=== PATIENT | female | born 1935 | race Caucasian/White ===

== ENCOUNTER 2016-12-04 10:48 | Inpatient (IN) ==
--- NOTE | 2016-12-04 11:01 | Emergency Department Note ---
START Narrative - START START: Patient seen and examined the time of arrival by EMS. Patient is going to be evaluated by the afternoon physician. Was called to the bedside to evaluate her prior to the shift starting. Patient presents with A. fib RVR. Denies any symptoms at this time except that she has been feeling weak and has difficulty with walking around secondary to weakness. Patient denies chest pain shortness of breath headache vision changes nausea vomiting or diarrhea. Denies any other symptoms as far as trauma or injury. Patient had basic cardiac evaluation started this point EKG is reviewed from EMS showing tachycardic rhythm with undifferentiated etiology at this time. Patient is on Xarelto according to her records and does not require anticoagulation at this point. Aspirin will not be given. Patient is otherwise stable we will continue to monitor here. Treatment course to be completed by the daytime physician. IV access obtained and vital signs reviewed. Blood pressure was stable heart rate is still elevated at 120 bpm
[2016-12-04 11:40] LABS: Basophils % 0.3 %; Hematocrit 38.9 % (35.3-44.9); Hemoglobin 13.5 g/dL (11.5-15.4); Immature Granulocytes % 0.6 % (0-4); Immature Platelets 7.1 % (1.1-6.1); Lymphocytes # 0.3 K/mcL (0.6-4.6); Lymphocytes % 9.3 %; Mean Corpuscular HGB Conc 34.7 g/dL (31.6-35.5); Mean Corpuscular Hemoglobin 26.3 pg (28.0-33.3); Mean Corpuscular Volume 75.8 fL (83.0-100.0); Mean Platelet Volume 9.7 fL (9.4-12.4); Monocytes # 0.2 K/mcL (0.0-1.3); Monocytes % 5.4 %; Platelet Count 112 K/mcL (140-400); Red Blood Count 5.13 M/mcL (3.82-4.97); Red Cell Distribution Width 14.2 % (11.5-14.5); Segmented Neutrophils % 84.4 %
[2016-12-04 11:47] LABS: INR 1.2; Prothrombin Time 13.2 Seconds (9.4-12.1)
[2016-12-04 11:50] LABS: Activated Partial Thrombo Time 27.7 Seconds (26.0-36.0)
[2016-12-04 11:51] LABS: BUN/Creatinine Ratio 30 (6-26); Blood Urea Nitrogen 26 mg/dL (7-20); Calcium 9.3 mg/dL (8.6-10.8); Carbon Dioxide 26 mEq/L (19-29); Chloride 91 mEq/L (98-109); Glucose 115 mg/dL (70-99); Magnesium 1.9 mg/dL (1.6-2.6); Osmolality,Calculated 274 (280-300); Potassium 3.4 mEq/L (3.5-4.5); Sodium 129 mEq/L (136-145); eGFR For African Americans > 60 (> 60); eGFR For Non-African Americans > 60 (> 60)
[2016-12-04 12:14] LABS: Thyroid Stimulating Hormone 2.424 mcIU/mL (0.350-4.840)
--- NOTE | 2016-12-04 13:02 | Emergency Department Note ---
Disposition Clinical Impression: Atrial fibrillation with RVR Disposition: Admitted As Inpatient Condition: Fair General Adult HPI - General Chief complaint: ED Dizziness Stated complaint: weakness and dizziness Time Seen by Provider: 12/04/16 10:54 Source: patient, EMS Limitations: no limitations Nursing Notes Reviewed: Yes Vital Signs Reviewed: Yes - History of Present Illness HPI Narrative: Patient presents from the primary care office and she went in for a routine visit and was found to have atrial fibrillation with a rapid ventricular response and came here per paramedics. I did review the physician surgeon rhythm strips showing a rate region 145 bpm. Patient currently said she does have palpitations intermittently. Last 2 or 3 days but denies any current lightheadedness. No chest pain or tightness or discomfort or pressure. No pain or swelling of the lower extremities. The patient tells me she does not have a history of atrial fibrillation. No medication specifically used. Social history: No smoking or alcohol Pain Scale: 0 - Related Data Home Medications Medication Instructions Recorded Confirmed Albuterol Sulfate [Albuterol 2 puff IH Q4HR 01/22/15 12/04/16 Inhaler] Aspirin Enteric Coated [Aspirin EC] 81 mg PO DAILY 01/22/15 12/04/16 Chlorthalidone 25 mg PO QAM 01/22/15 12/04/16 Lisinopril [Zestril] 2.5 mg PO BID 01/22/15 12/04/16 Metformin [Glucophage] 500 mg PO HS 01/22/15 12/04/16 Ranitidine HCl [Zantac] 300 mg PO DAILY 01/22/15 12/04/16 Simvastatin [Zocor] 20 mg PO QPM 01/22/15 12/04/16 Cholecalciferol (Vitamin D3) 10,000 unit PO 2XW 07/26/15 12/04/16 [Vitamin D3] Cyclosporine [Restasis] 1 drop OP DAILY 07/26/15 12/04/16 Ibuprofen [Motrin] 400 mg PO TID PRN 07/26/15 12/04/16 Propylene Glycol/Peg 400 [Systane 1 drop OP AD 07/26/15 12/04/16 0.3-0.4% Eye Drops] rOPINIRole [Requip] 1 mg PO HS 07/26/15 12/04/16 Umeclidinium Brm/Vilanterol Tr 1 puff IH BID 12/04/16 12/04/16 [Anoro Ellipta 62.5-25 Mcg INH] Previous Rx's Medication Instructions Recorded Diltiazem CD (24hr) [Cardizem CD] 120 mg PO DAILY #30 cap.er.24h 01/25/15 Furosemide [Lasix] 20 mg PO BID #60 tablet 07/28/15 Acetaminophen [Tylenol] 650 mg PO Q6HR PRN #0 tablet 02/06/16 Allergies Allergy/AdvReac Type Severity Reaction Status Date / Time No Known Allergies Allergy Verified 01/22/15 12:56 Review of Systems: Constitutional: No fever Vision: No blurred vision ENT: No rhinorrhea Respiratory: No cough Allergic: No allergies : No blood in urine GI: No blood in stool Hematologic: No bruising Dermatologic: No skin rash Musculoskeletal: No pain in the extremities Neuro: No numbness of the extremities Past Medical History - Past Medical History Medical history: Reports: asthma, atrial fibrillation, CHF, CVA, diabetes, hypertension, other Surgical history: Reports: hysterectomy, orthopedic, other, other Psychiatric history: Reports: no psych history - Social History Smoking Status: Current every day smoker Smokeless Tobacco Status: No Alcohol use: Reports: occasionally Drug use: Reports: none Physical Exam CONSTITUTIONAL: Well-appearing; well-nourished; A&O X 3, in no apparent distress HEAD: Normocephalic; atraumatic EYES: PERRL, no scleral icterus NOSE: The nose is normal in appearance without rhinorrhea NECK: No JVD or distended neck veins RESP: Normal chest excursion with respiration; breath sounds clear and equal bilaterally; no wheezes, rhonchi, or rales CARD: Regular rhythm, without murmurs, rub or gallop ABD: Non-distended; non-tender, soft, without rigidity, rebound or guarding,no pulsatile mass CHEST: No pain with palpation SKIN: Normal for age and race; warm and dry without diaphoresis ; no apparent lesions EXTREMITIES: Pulses are 2 plus and equal times 4 extremities, no peripheral edema or calf muscle pain - General Limitations: no limitations General appearance: alert, in no apparent distress Course Vital Signs Temperature 98.3 F 12/04/16 10:50 Pulse Rate 125 12/04/16 10:50 Respiratory Rate 18 12/04/16 10:50 Blood Pressure 113/80 12/04/16 10:50 O2 Sat by Pulse Oximetry 97 12/04/16 10:50 Temperature 98.3 F 12/04/16 10:50 Pulse Rate 101 12/04/16 11:34 Respiratory Rate 18 12/04/16 11:34 Blood Pressure 117/67 12/04/16 11:34 O2 Sat by Pulse Oximetry 97 12/04/16 11:34 Oxygen Delivery Oxygen Delivery Room Air Medical Decision Making - MDM Narrative Medical decision making narrative: no patient did receive Cardizem 20 mg bolus as well as Cardizem IV drip at 10 mg per hour and did recheck on the patient. Heart rate is significantly improved. Initial EKG does show atrial fibrillation with rapid ventricular response with nonspecific ST changes. I did review the patient's labs. Chest x -ray does shows some mild vascular congestion but no signs of pneumothorax or mediastinal widening. The patient will be admitted to the hospital I did discuss this further with her. I did speak with Dr. Kapadia who is the hospitalist who accepted the patient for admission. I did speak with the patient's son and his girlfriend and they are comfortable with the admission decision. 1302 I did just recheck on the pt and explained her results and she is comfortable w the admission plan 1314 - Medical Records Medical records reviewed: Yes I reviewed the patient's medical records. - Lab Data Lab results reviewed: Yes I reviewed the patient's lab results. Result diagrams: 12/04/16 11:24 12/04/16 11:24 Lab Results 12/04/16 12/04/16 12/04/16 Range/Units 11:24 11:24 11:24 WBC 3.5 L (4.3-11.1) K/mcL RBC 5.13 H (3.82-4.97) M/mcL Hgb 13.5 (11.5-15.4) g/dL Hct 38.9 (35.3-44.9) % MCV 75.8 L (83.0-100.0) fL MCH 26.3 L (28.0-33.3) pg MCHC 34.7 (31.6-35.5) g/dL RDW 14.2 (11.5-14.5) % Plt Count 112 L (140-400) K/mcL MPV 9.7 (9.4-12.4) fL Immature Gran % 0.6 (0-4) % Seg Neutrophils % 84.4 % Lymphocytes % 9.3 % Monocytes % 5.4 % Eosinophils % 0.0 % Basophils % 0.3 % Neutrophils # 3.0 (1.6-8.9) K/mcL Lymphocytes # 0.3 L (0.6-4.6) K/mcL Monocytes # 0.2 (0.0-1.3) K/mcL Eosinophils # 0.0 (0.0-0.6) K/mcL Basophils # 0.0 (0.0-0.2) K/mcL Immature Plt Fraction 7.1 H (1.1-6.1) % PT 13.2 H (9.4-12.1) Seconds INR 1.2 APTT 27.7 (26.0-36.0) Seconds Sodium 129 L (136-145) mEq/L Potassium 3.4 L (3.5-4.5) mEq/L Chloride 91 L (98-109) mEq/L Carbon Dioxide 26 (19-29) mEq/L BUN 26 H (7-20) mg/dL Creatinine 0.86 (0.57-1.11) mg/dL Est GFR ( Amer) > 60 (> 60) Est GFR (Non-Af Amer) > 60 (> 60) BUN/Creatinine Ratio 30 H (6-26) Glucose 115 H (70-99) mg/dL Calculated Osmolality 274 L (280-300) Calcium 9.3 (8.6-10.8) mg/dL Magnesium 1.9 (1.6-2.6) mg/dL Troponin I (0-0.03) ng/mL TSH 2.424 (0.350-4.840) mcIU/mL 12/04/16 Range/Units 11:24 WBC (4.3-11.1) K/mcL RBC (3.82-4.97) M/mcL Hgb (11.5-15.4) g/dL Hct (35.3-44.9) % MCV (83.0-100.0) fL MCH (28.0-33.3) pg MCHC (31.6-35.5) g/dL RDW (11.5-14.5) % Plt Count (140-400) K/mcL MPV (9.4-12.4) fL Immature Gran % (0-4) % Seg Neutrophils % % Lymphocytes % % Monocytes % % Eosinophils % % Basophils % % Neutrophils # (1.6-8.9) K/mcL Lymphocytes # (0.6-4.6) K/mcL Monocytes # (0.0-1.3) K/mcL Eosinophils # (0.0-0.6) K/mcL Basophils # (0.0-0.2) K/mcL Immature Plt Fraction (1.1-6.1) % PT (9.4-12.1) Seconds INR APTT (26.0-36.0) Seconds Sodium (136-145) mEq/L Potassium (3.5-4.5) mEq/L Chloride (98-109) mEq/L Carbon Dioxide (19-29) mEq/L BUN (7-20) mg/dL Creatinine (0.57-1.11) mg/dL Est GFR ( Amer) (> 60) Est GFR (Non-Af Amer) (> 60) BUN/Creatinine Ratio (6-26) Glucose (70-99) mg/dL Calculated Osmolality (280-300) Calcium (8.6-10.8) mg/dL Magnesium (1.6-2.6) mg/dL Troponin I 0.01 (0-0.03) ng/mL TSH (0.350-4.840) mcIU/mL - Radiology Data Radiology results reviewed: Yes I reviewed the patient's radiology results. Chest X-Ray 12/04/16 10:54 IMPRESSION: 1. Mild pulmonary vascular congestion. 2. Minimal atelectasis noted in the left lung base. D/ / Dre Pollard MD / Dre Pollard MD Interpreting Provider: Dre Pollard MD Critical Care Time Critical Care Time: Yes Total Critical Care Time: 30 Attestation: Patient did present with significant arrhythmia with new onset atrial fibrillation with rapid ventricular response and received IV bolus as well as IV drip of Cardizem medication to manage the arrhythmia and recheck shows the patient's heart rate is improved. 1303
--- NOTE | 2016-12-04 13:22 | Electrocardiograph Report ---
[place] [id number] Test Date: 2016-12-04 Pat Name: Vale Whitman Department: 102 Room: [facility] Gender: F Galley Stripper: Saloni : 1935 Requested By: Jung Borges Order Number: [id number] Reading MD: Cnoor Nguyen MD Measurements Intervals Kite Rate: 127 P: MO: 0 QRS: 32 QRSD: 86 T: 42 QT: 293 QTc: 368 Interpretive Statements ATRIAL FIBRILLATION WITH RAPID VENTRICULAR RESPONSE WITH ABERRANT CONDUCTION OR VENTRICULAR PREMATURE COMPLEXES Electronically Signed On 12-04-2016 13:20:22 EDT by Conor Nguyen MD
[2016-12-04] MEDS ORDERED: *HR* Morphine 2 MG/ML SYRINGE IVP PRN (14:22)
[2016-12-04] MEDS ORDERED: Ondansetron 4 MG/2 ML VIAL IVP PRN (14:22)
[2016-12-04] MEDS ORDERED: Naloxone 0.4 MG/ML INJ IVP PRN (14:22)
[2016-12-04] MEDS ORDERED: CYCLOSPORINE OP SCH (14:45)
[2016-12-04] MEDS ORDERED: Artificial Tears SOLN 15 ML BOTTLE OP PRN (14:45)
--- NOTE | 2016-12-04 16:21 | Internal Med History&Physical ---
Date of Encounter: 12/04/16 Time of Encounter: 15:45 Assessment and Plan (1) Atrial fibrillation with rapid ventricular response Current visit: No Status: Acute Chronic atrial fibrillation - now with rapid ventricular response IV Cardizem drip to be titrated Continue home medication by mouth Cardizem, restart beta joseph Patient has been on Xarelto, uunclear if this is been discontinue Restart anticoagulation once family brings patient's medical list Continue aspirin and statin and Lasix EKG - afib with RVR Chest x-ray - pulmonary edema Troponin - 0.01, will trend Labs in a.m. (2) Diastolic heart failure Current visit: No Status: Chronic mild Acute on chronic diastolic CHF exacerbation with LVEF 60-65% Continue Lasix, strict I's and O's Fluid restriction, daily weight Continue home meds Echocardiogram pending Qualifiers: Heart failure chronicity: acute on chronic Qualified Code(s): I50.33 - Acute on chronic diastolic (congestive) heart failure (3) Type 2 diabetes mellitus Current visit: No Status: Chronic Type 2 diabetes, [id number], hyperglycemia Insulin sliding scale, glucose checks. Qualifiers: Diabetes mellitus complication status: without complication Diabetes mellitus civil preparedness officer insulin use: without civil preparedness officer use Qualified Code(s): E11.9 - Type 2 diabetes mellitus without complications (4) Hypertension Current visit: No Status: Chronic Essential hypertension, controlled, continue home meds, monitor Qualifiers: Hypertension type: essential hypertension Qualified Code(s): I10 - Essential (primary) hypertension (5) DVT prophylaxis Current visit: Yes Status: Acute Internal Medicine - H&P: HPI Chief complaint: Generalized weakness and tachycardia Admitted From: Emergency Dept History of present illness: Ms. Whitman is a 81 year old female with past medical history of asthma, atrial fibrillation, CHF, diabetes, CVA, hypertension and hyperlipidemia. She presents to the ED for generalized weakness and tachycardia. She presents from her primary care doctor's office. She is following up for routine visit. She was found to be in atrial fibrillation with RVR. Initial weight was found to be around 145 beats per minutes. Patient states she initially had generalized weakness and some lightheadedness and some palpitations, but this seems to have now improved. Denies chest pain and denies shortness of breath. Denies abdominal pain and denies vomiting or diarrhea. Initial evaluation revealed pulmonary edema, A. fib with RVR and mild hypokalemia. Patient has been admitted in the past for CHF exacerbation and A. fib with RVR. On examination patient is awake and alert. Not in any distress. Able to provide history. Son is at bedside and he also provides history. Patient is being admitted for A. fib with RVR. She is on IV Cardizem at this time. Patient has been on Xarelto, but it is unclear if she is still taking it or not. If patient does not have any history of bleeding complications then anticoagulation will be restarted. Patient and family members have been explained about her condition and plan of care. Understood and agreed. No unanswered questions. CODE STATUS full code. Past Med Surg Social Fam HX - Past Medical History Medical history: asthma, atrial fibrillation, CHF, CVA, diabetes, hypertension, other Psychiatric history: no psych history - Past Surgical History Surgical History: hysterectomy, orthopedic, other, other - Social History Smoking Status: Current every day smoker Smokeless Tobacco Status: No Alcohol use: occasionally Drug use: none - Family History Grandmother Family Member Ethnicity: Non- Living Status: Hx Family Cardiac Disorders: Yes Hx Family Respiratory Disorders: No Hx Family Cancer: Yes Hx Family GI Disorders: No Hx Family Endocrine Disorder: Yes Hx Family Neuromuscular Disorders: No Hx Family Neurologic Disorders: No Hx Family HEENT Disorders: No Hx Family Autoimmune Disorders: No Internal Medicine - H&P: Meds Albuterol Sulfate [Albuterol Inhaler] 2 puff IH Q4HR 01/22/15 [History] Aspirin Enteric Coated [Aspirin EC] 81 mg PO DAILY 01/22/15 [History] Chlorthalidone 25 mg PO QAM 01/22/15 [History] Lisinopril [Zestril] 2.5 mg PO BID 01/22/15 [History] Metformin [Glucophage] 500 mg PO HS 01/22/15 [History] Ranitidine HCl [Zantac] 300 mg PO DAILY 01/22/15 [History] Simvastatin [Zocor] 20 mg PO QPM 01/22/15 [History] Diltiazem CD (24hr) [Cardizem CD] 120 mg PO DAILY #30 cap.er.24h 01/25/15 [Rx] Cholecalciferol (Vitamin D3) [Vitamin D3] 10,000 unit PO 2XW 07/26/15 [History] Cyclosporine [Restasis] 1 drop OP DAILY 07/26/15 [History] Ibuprofen [Motrin] 400 mg PO TID PRN 07/26/15 [History] Propylene Glycol/Peg 400 [Systane 0.3-0.4% Eye Drops] 1 drop OP AD 07/26/15 [ History] rOPINIRole [Requip] 1 mg PO HS 07/26/15 [History] Furosemide [Lasix] 20 mg PO BID #60 tablet 07/28/15 [Rx] Acetaminophen [Tylenol] 650 mg PO Q6HR PRN #0 tablet 02/06/16 [Rx] Umeclidinium Brm/Vilanterol Tr [Anoro Ellipta 62.5-25 Mcg INH] 1 puff IH BID 11/15 [History] Allergies No Known Allergies Allergy (Verified 01/22/15 12:56) All Systems PM: A 10-system review of systems was performed and is negative for pertinent findings except as documented above in the HPI. - Constitutional Constitutional: fatigue, weakness, no fever(s) - EENT Eyes: no blurry vision - Cardiovascular Cardiovascular ROS IM: lightheadedness, no chest pain, no dyspnea, no dyspnea on exertion, no orthopnea, no syncope - Respiratory Respiratory: no cough, no dyspnea, no hemoptysis, no dyspnea on exertion, no wheezing, no chest congestion - Gastrointestinal Gastrointestinal: no abdominal pain, no cramping, no diarrhea, no nausea, no vomiting - Genitourinary Genitourinary: no dysuria - Musculoskeletal Musculoskeletal ROS IM: no arthralgias - Neurological Neurological ROS: no abnormal gait, no abnormal speech, no dizziness, no numbness, no tingling - Constitutional Vitals: Temp Pulse Resp BP Pulse Ox 100 F H 105 16 122/71 93 12/04/16 15:24 12/04/16 15:24 12/04/16 15:46 12/04/16 15:24 12/04/16 15:46 General appearance: Present: A&O X 3, pleasant, no acute distress, answers questions appropriately - Head Head exam: Present: atraumatic - ENT ENT exam: Present: mucous membranes moist - Neck Neck exam general surgery: Present: supple - Respiratory Respiratory exam: Present: rales (Mild bilateral). Absent: rhonchi, stridor, tachypnea - Cardiovascular Cardiovascular exam: Present: irregular rhythm, +S1, +S2, systolic murmur, tachycardia - GI/Abdominal GI/Abdominal exam: Present: soft. Absent: distended, firm, guarding, rigid, tenderness - Extremities Exam Extremities exam: Present: radial pulses palpable and symetrical. Absent: cyanotic, pedal edema, tenderness - Neurological Exam Neurological exam: Present: alert, oriented X3, no focal deficits Internal Med - H&P Results - Labs CBC & Chem 7: 12/04/16 11:24 12/04/16 11:24
[2016-12-04] MEDS ORDERED: D5% in Water 1,000 ML IVC PRN (16:24)
[2016-12-04] MEDS ORDERED: Dextrose Gel 15 GM PO PRN ×2 (16:24)
[2016-12-04] MEDS ORDERED: *HR* Dextrose 50 % in Water (Syg) 50 ML SYRINGE IVP PRN (16:24)
[2016-12-04] MEDS: Aspirin Enteric Coated 81 MG Tablet PO SCH (17:14)
[2016-12-04] MEDS: Furosemide 20 MG TABLET PO SCH (17:14)
[2016-12-04] MEDS: Famotidine 20 MG TABLET PO SCH (17:15)
[2016-12-04] MEDS: Insulin LISPRO 300 UNITS/3 ML VIAL SQ SCH (17:18)
[2016-12-04] MEDS: rOPINIRole 1 MG TABLET PO SCH (20:51)
[2016-12-04] MEDS: *HR* Heparin 5,000 UNIT/ML VIAL SQ SCH (20:53)
[2016-12-04] MEDS ORDERED: Umeclidinium Brm/Vilanterol Tr [Anoro Ellipta 62.5-2 IH SCH (21:00)
[2016-12-04 21:41] LABS: Bilirubin,Urine Negative (Negative); Blood,Urine Negative (Negative); Clarity,Urine Cloudy (Clear); Color,Urine Yellow (Yellow); Glucose,Urine (UA) Normal (Normal); Ketones,Urine Negative (Negative); Leukocyte Esterase,Urine Small (Negative); Nitrite,Urine Positive (Negative); Protein,Urine Negative (Neg-Trace); Specific Gravity,Urine 1.016 (1.010-1.025); Urobilinogen,Urine Normal (Normal)
[2016-12-04 21:44] LABS: Bacteria,Urine Many per hpf (None-Few); Hyaline Casts,Urine None Seen per lpf (None-Few); Squamous Epithelial Cell,Urine Many per lpf (None-Few)
[2016-12-04] MEDS ORDERED: 0.9 % Sodium Chloride 500 ML ONE (23:10)
[2016-12-05] MEDS: Insulin LISPRO 300 UNITS/3 ML VIAL SQ SCH ×5 (05:38→20:29)
[2016-12-05] MEDS: *HR* Heparin 5,000 UNIT/ML VIAL SQ SCH ×3 (05:48→20:44)
[2016-12-05 05:52] LABS: INR 1.3; Prothrombin Time 14.3 Seconds (9.4-12.1)
[2016-12-05 06:01] LABS: Albumin 3.4 g/dL (3.5-5.0); Albumin/Globulin Ratio 1.4 (1.1-2.2); Bilirubin,Total 1.2 mg/dL (0.2-1.2); Calcium 8.6 mg/dL (8.6-10.8); Globulin 2.5 g/dL (2.4-3.5); Potassium 3.2 mEq/L (3.5-4.5); Total Protein 5.9 g/dL (6.0-8.3)
[2016-12-05 06:11] LABS: Basophils % 0.3 %; Hematocrit 36.6 % (35.3-44.9); Hemoglobin 12.5 g/dL (11.5-15.4); Lymphocytes # 0.5 K/mcL (0.6-4.6); Lymphocytes % 15.5 %; Mean Corpuscular HGB Conc 34.2 g/dL (31.6-35.5); Mean Corpuscular Hemoglobin 25.9 pg (28.0-33.3); Mean Corpuscular Volume 75.9 fL (83.0-100.0); Mean Platelet Volume 10.9 fL (9.4-12.4); Monocytes # 0.2 K/mcL (0.0-1.3); Monocytes % 7.2 %; Neutrophils # 2.2 K/mcL (1.6-8.9); Platelet Count 104 K/mcL (140-400); Red Blood Count 4.82 M/mcL (3.82-4.97); Red Cell Distribution Width 14.5 % (11.5-14.5)
[2016-12-05] MEDS ORDERED: Acetaminophen 325 MG TABLET PO PRN ×2 (08:50→20:18)
[2016-12-05] MEDS ORDERED: Budesonide/Formoterol 160/4.5 MDI IH SCH (10:00)
[2016-12-05] MEDS: Budesonide/Formoterol 160/4.5 MDI IH SCH ×2 (10:12→20:15)
[2016-12-05] MEDS: Diltiazem CD (24hr) 120 MG CAPSULE PO SCH (11:20)
[2016-12-05] MEDS: Famotidine 20 MG TABLET PO SCH ×2 (11:21→16:56)
[2016-12-05] MEDS: Aspirin Enteric Coated 81 MG Tablet PO SCH (11:21)
[2016-12-05] MEDS: Furosemide 20 MG TABLET PO SCH (11:21)
[2016-12-05] MEDS: Cholecalciferol (D-3) 1,000 UNIT TABLET PO SCH (11:21)
[2016-12-05] MEDS ORDERED: 0.9 % Sodium Chloride 250 ML IVC ONE (14:00)
--- NOTE | 2016-12-05 15:37 | Internal Med Progress Note ---
<Jose Hubbard - Last Filed: 12/05/16 15:56> Date of Encounter: 12/05/16 Time of Encounter: 15:34 - Assessment and plan (1) Atrial fibrillation with rapid ventricular response Current Visit: No Status: Acute Assessment and plan: - Emergency department EKG revealed atrial fibrillation with rapid ventricular response, rate 145 - [place] not on anticoagulation due to falls. She does take aspirin 81 mg daily - Patient was started on Cardizem drip at 10 mg, has been titrated down to 2.5 mg - Heart rate has remained stable in the 90s -Patient is also receiving by mouth diltiazem 120 mg daily, as well as her home dose of metoprolol tartarate 25 mg twice a day - Continue to monitor weight and adjust dosing as needed - She received echocardiogram this morning, results pending (2) Hypotension Current Visit: Yes Status: Acute Assessment and plan: Issues blood pressure upon admission was 88/54 - Likely due to dehydration versus polypharmacy - We are currently holding her lisinopril, Lasix, chlorthalidone - Patient received 1- 250 mL bolus of normal saline infused over 5 hours - Fluid restriction suspended or this evening, will continue tomorrow morning - Patient is asymptomatic. - We will continue to monitor Qualifiers: Hypotension type: unspecified hypotension type Qualified Code(s): I95.9 - Hypotension, unspecified (3) UTI (urinary tract infection) Current Visit: Yes Status: Acute Assessment and plan: - Patient's urinalysis in the emergency department was positive for nitrites, small leukocyte esterase, epithelial cells - Patient was placed on Rocephin 1 g IV daily - Patient does not complain of dysuria, frequency, urgency - We will continue to monitor Qualifiers: Urinary tract infection type: acute cystitis Hematuria presence: without hematuria Qualified Code(s): N30.00 - Acute cystitis without hematuria (4) Type 2 diabetes mellitus Current Visit: No Status: Chronic Assessment and plan: - Issues blood sugars well controlled at this time, most recently 140 - Will Continue a sliding insulin scale Qualifiers: Diabetes mellitus complication status: without complication Diabetes mellitus jail insulin use: without jail use Qualified Code(s): E11.9 - Type 2 diabetes mellitus without complications (5) Acute kidney injury Current Visit: Yes Status: Acute Assessment and plan: - Patient's BUN/creatinine was 34/1.63 - Likely result of dehydration - Patient's mild hyponatremia, hypokalemia, hypochloremia likely results of thiazide and loop diuretics. We have held her diuretics - We will give one bolus of 250 mL normal saline, suspend fluid restriction for this evening - Continue to monitor with a.m. labs (6) DVT prophylaxis Current Visit: Yes Status: Acute Assessment and plan: Patient is receiving heparin 5000 units subcutaneously - Time Spent With Patient 25 - 35 minutes - Subjective Interval history: Patient was seen and examined at bedside morning. Patient states that she is feeling well, however she is still feeling generalized weakness. Denies any symptoms of chest pain, shortness of breath, palpitations, fevers, chills, nausea, vomiting. - Constitutional Vitals: Temp Pulse Resp BP Pulse Ox 98.5 F 86 16 94/60 93 12/05/16 14:59 12/05/16 15:19 12/05/16 15:19 12/05/16 15:19 12/05/16 15:19 General appearance: Present: A&O X 3, pleasant, no acute distress, answers questions appropriately Exam: Gen.: Vitals noted. No acute distress. AAOx3 HEENT: PERRL/EOMI, oropharynx clear, Normocephalic, atraumatic. Dry mucous membranes Neck: Supple. No adenopathy. Cardiac: Irregularly irregular rhythm. Rate in 90s, no murmur, +S1/S2 Pulmonary: CTA bilaterally, no wheezes, rales or rhonchi, equal chest expansion Abdomen: soft, nontender, BS noted, no guarding Back: Nontender throughout. MSK: ROM intact, no joint swelling noted Extremities: Mild bruising over extremities diffusely. no BLE edema, nontender calf, no cyanosis or clubbing Neuro: A&Ox3, moves all extremities, no focal deficits Psych: Appropriate mood and behavior Internal Medicine: Result - Labs CBC & Chem 7: 12/05/16 05:21 12/05/16 05:21 Labs: Short CBC 12/05/16 Range/Units 05:21 WBC 2.9 L (4.3-11.1) K/mcL Hgb 12.5 (11.5-15.4) g/dL Hct 36.6 (35.3-44.9) % Plt Count 104 L (140-400) K/mcL Neutrophils # 2.2 (1.6-8.9) K/mcL BMP 12/05/16 05:21 Sodium 128 L Potassium 3.2 L Chloride 91 L Carbon Dioxide 26 BUN 34 H Creatinine 1.63 H D Glucose 140 H Calcium 8.6 Cardiac Enzymes 12/04/16 12/04/16 12/05/16 Range/Units 17:13 22:53 05:21 Troponin I 0.01 0.02 0.01 (0-0.03) ng/mL Liver Function 12/05/16 Range/Units 05:21 Total Bilirubin 1.2 (0.2-1.2) mg/dL AST 51 H (5-34) Units/L ALT 41 (0-55) Units/L Alkaline Phosphatase 55 (38-126) Units/L Albumin 3.4 L (3.5-5.0) g/dL Urine 12/04/16 Range/Units 21:30 Urine Color Yellow (Yellow) Urine Clarity Cloudy A (Clear) Urine pH 6.0 (5.0-8.0) pH Units Ur Specific [place] 1.016 (1.010-1.025) Urine Protein Negative (Neg-Trace) mg/dL Urine Glucose (UA) Normal (Normal) mg/dL - ABG Interpretation ABG results: PT/INR, D-dimer PT 14.3 Seconds (9.4-12.1) H 12/05/16 05:21 Consult Discharge Plan - Plan Referrals: Mili Rome, [employer] DESIGNER [Primary Care Provider] - <Gamal Brower - Last Filed: 12/05/16 17:23> Date of Encounter: 12/05/16 - Assessment and plan (1) Diastolic heart failure Current Visit: Yes Status: Chronic Assessment and plan: Diuresed some today. Qualifiers: Heart failure chronicity: acute on chronic Qualified Code(s): I50.33 - Acute on chronic diastolic (congestive) heart failure (2) Atrial fibrillation Current Visit: Yes Status: Acute Assessment and plan: Rate better controlled at this time. Qualifiers: Atrial fibrillation type: chronic Qualified Code(s): I48.2 - Chronic atrial fibrillation (3) Type 2 diabetes mellitus Current Visit: No Status: Chronic Qualifiers: Diabetes mellitus complication status: without complication Diabetes mellitus buttermaker continuous churn insulin use: without jail use Qualified Code(s): E11.9 - Type 2 diabetes mellitus without complications (4) Hypertension Current Visit: Yes Status: Chronic Qualifiers: Hypertension type: essential hypertension Qualified Code(s): I10 - Essential (primary) hypertension (5) UTI (urinary tract infection) Current Visit: Yes Status: Acute Qualifiers: Urinary tract infection type: acute cystitis Hematuria presence: without hematuria Qualified Code(s): N30.00 - Acute cystitis without hematuria (6) Microcytic anemia Current Visit: No Status: Chronic - Constitutional Vitals: Temp Pulse Resp BP Pulse Ox 98.5 F 86 16 94/60 93 12/05/16 14:59 12/05/16 15:19 12/05/16 15:19 12/05/16 15:19 12/05/16 15:19 Internal Medicine: Result - Labs CBC & Chem 7: 12/05/16 05:21 12/05/16 05:21 Labs: Short CBC 12/05/16 Range/Units 05:21 WBC 2.9 L (4.3-11.1) K/mcL Hgb 12.5 (11.5-15.4) g/dL Hct 36.6 (35.3-44.9) % Plt Count 104 L (140-400) K/mcL Neutrophils # 2.2 (1.6-8.9) K/mcL BMP 12/05/16 05:21 Sodium 128 L Potassium 3.2 L Chloride 91 L Carbon Dioxide 26 BUN 34 H Creatinine 1.63 H D Glucose 140 H Calcium 8.6 Cardiac Enzymes 12/04/16 12/04/16 12/05/16 Range/Units 17:13 22:53 05:21 Troponin I 0.01 0.02 0.01 (0-0.03) ng/mL Liver Function 12/05/16 Range/Units 05:21 Total Bilirubin 1.2 (0.2-1.2) mg/dL AST 51 H (5-34) Units/L ALT 41 (0-55) Units/L Alkaline Phosphatase 55 (38-126) Units/L Albumin 3.4 L (3.5-5.0) g/dL Urine 12/04/16 Range/Units 21:30 Urine Color Yellow (Yellow) Urine Clarity Cloudy A (Clear) Urine pH 6.0 (5.0-8.0) pH Units Ur Specific [place] 1.016 (1.010-1.025) Urine Protein Negative (Neg-Trace) mg/dL Urine Glucose (UA) Normal (Normal) mg/dL - ABG Interpretation ABG results: PT/INR, D-dimer PT 14.3 Seconds (9.4-12.1) H 12/05/16 05:21 - Attending Attestation I examined this patient and my medical decision-making was reviewed with the Resident Physician on 12/05/16. I agree with the documented findings, disposition and treatment plan as described except to the extent set forth below. Ms. Whitman is currently admitted for acute rapid atrial fibrillation and some CHF. She remains moderate to high risk due to potential for worsening cardiac and respiratory status. Ms. Whitman is feeling OK. She is getting her echo now. No pain. Heart rate better controlled now. No CP or SOB. Very fatigued. No fever or chills. Exam Alert. Comfortable Heart irreg - not tachy Lungs diminished but clear Edema present. I/P 1. Rapid a fib - better controlled at this time 2. Acute diastolic heart filure Further diagnoses and plan as above.
[2016-12-05] MEDS: Nystatin POWDER 30 GM BOTTLE TP SCH ×2 (16:56→20:45)
[2016-12-05] MEDS: rOPINIRole 1 MG TABLET PO SCH (20:44)
[2016-12-05] MEDS ORDERED: 0.9 % Sodium Chloride 500 ML IVC ONE (23:23)
[2016-12-05] MEDS ORDERED: 0.9 % Sodium Chloride 500 ML ONE (23:31)
[2016-12-06] MEDS ORDERED: 0.9 % Sodium Chloride 500 ML IVC ONE (00:14)
[2016-12-06] MEDS: *HR* Heparin 5,000 UNIT/ML VIAL SQ SCH ×3 (05:49→22:20)
[2016-12-06 06:54] LABS: Hemoglobin 12.4 g/dL (11.5-15.4); Mean Platelet Volume 11.5 fL (9.4-12.4); Red Cell Distribution Width 14.6 % (11.5-14.5)
[2016-12-06 06:56] LABS: Hematocrit 36.3 % (35.3-44.9); Immature Platelets 12.7 % (1.1-6.1); Mean Corpuscular HGB Conc 34.2 g/dL (31.6-35.5); Mean Corpuscular Hemoglobin 25.8 pg (28.0-33.3); Mean Corpuscular Volume 75.5 fL (83.0-100.0); Red Blood Count 4.81 M/mcL (3.82-4.97)
[2016-12-06 07:06] LABS: Calcium 8.2 mg/dL (8.6-10.8); Potassium 3.3 mEq/L (3.5-4.5)
[2016-12-06] MEDS: Budesonide/Formoterol 160/4.5 MDI IH SCH ×2 (09:06→19:58)
[2016-12-06] MEDS: Cholecalciferol (D-3) 1,000 UNIT TABLET PO SCH (09:13)
[2016-12-06] MEDS: Famotidine 20 MG TABLET PO SCH ×2 (09:13→15:59)
[2016-12-06] MEDS: Aspirin Enteric Coated 81 MG Tablet PO SCH (09:13)
[2016-12-06] MEDS: Diltiazem CD (24hr) 120 MG CAPSULE PO SCH (09:13)
[2016-12-06] MEDS: Nystatin POWDER 30 GM BOTTLE TP SCH ×2 (09:17→22:20)
[2016-12-06] MEDS: Insulin LISPRO 300 UNITS/3 ML VIAL SQ SCH ×4 (09:19→22:00)
[2016-12-06] MEDS ORDERED: 0.9 % Sodium Chloride 500 ML ONE (11:19)
[2016-12-06] MEDS ORDERED: 0.9 % Sodium Chloride 500 ML IVC SCH (11:30)
--- NOTE | 2016-12-06 15:51 | Internal Med Progress Note ---
<Brittney Guallpa - Last Filed: 12/06/16 16:17> Date of Encounter: 12/06/16 Time of Encounter: 10:15 - Assessment and plan (1) Atrial fibrillation with rapid ventricular response Current Visit: No Status: Acute Assessment and plan: - EKG on admission revealed atrial fibrillation with rapid ventricular response at rate of 145 - Currently rate-controlled with heart rate around 100s. - PO Cardizem and metoprolol were held this morning due to hypotension. - Not on anticoagulation at home except aspirin 81 mg due to fall risks. - Continue close monitoring with telemetry. (2) Hypotension Current Visit: Yes Status: Acute Assessment and plan: - BP as low as 86/55. - Asymptomatic. - Likely due to dehydration versus polypharmacy. - Will have ACTH challenge test tomorrow morning to rule out adrenal insufficiency. - Continue to hold lisinopril, Lasix, chlorthalidone - Will give one bolus of 500 mL NS at rate of 100 cc/hr. - Continue to monitor Qualifiers: Hypotension type: unspecified hypotension type Qualified Code(s): I95.9 - Hypotension, unspecified (3) Hyponatremia Current Visit: Yes Status: Acute Assessment and plan: - Hypotonic hyponatremia with Na 129 on admission, likely hypovolemic or euvolemic. - Na 128 today. - Differential includes SIADH, adrenal insufficiency, renal loss, CHF. - Will check urine Na and osm. - Fluid restriction of 1.5L. - Continue to monitor. (4) Acute kidney injury Current Visit: Yes Status: Acute Assessment and plan: - SCr as high as 1.63 on 12/05/16. - Likely secondary to dehydration - Cautious about IV fluid given patient's known history of diastolic dysfunction. - Will give one bolus of 500 mL NS at rate of 100 cc/hr. - Continue to monitor electrolytes and renal function. (5) UTI (urinary tract infection) Current Visit: Yes Status: Acute Assessment and plan: - UA positive for nitrites with small leukocyte esterase. - Urine culture preliminarily grew GNR. - Patient reports no urinary symptoms but will still treat given she did have fever and leukopenia on admission. - Continue IV Rocephin (since 12/05/16). Qualifiers: Urinary tract infection type: acute cystitis Hematuria presence: without hematuria Qualified Code(s): N30.00 - Acute cystitis without hematuria (6) Diastolic heart failure Current Visit: Yes Status: Chronic Assessment and plan: - Echo on 12/05/26 showed LVEF 60-65% and indeterminate diastolic function due to atrial fibrillation. - Prior echo in 2014 did show moderate LV diastolic dysfunction. - Strict I/O and daily weight. - Low salt diet with fluid restriction of 1.5L. Qualifiers: Heart failure chronicity: acute on chronic Qualified Code(s): I50.33 - Acute on chronic diastolic (congestive) heart failure (7) Type 2 diabetes mellitus Current Visit: No Status: Chronic Assessment and plan: - Blood sugars well controlled at this time. - Continue insulin sliding scale with routine monitoring of blood glucose. Qualifiers: Diabetes mellitus complication status: without complication Diabetes mellitus fpc insulin use: without fpc use Qualified Code(s): E11.9 - Type 2 diabetes mellitus without complications (8) DVT prophylaxis Current Visit: Yes Status: Acute Assessment and plan: - Continue SQ heparin. - Subjective Interval history: Patient was noted to have low blood pressure (80s//50s) throughout the night. Patient was seen and examined this morning. Patient has no complaint and denies fever, chills, shortness of breath, chest pain, palpitation, nausea, vomiting, diarrhea. - Constitutional Vitals: Temp Pulse Resp BP Pulse Ox 98.3 F 101 16 87/51 94 12/06/16 11:07 12/06/16 11:07 12/06/16 11:07 12/06/16 11:07 12/06/16 11:07 General appearance: Present: A&O X 3, pleasant, no acute distress, answers questions appropriately - Head Head exam: Present: atraumatic, normocephalic - Eye Eye exam: Present: EOMI, PERRL, conjuntiva pink, sclera anicteric Pupils: Present: PERRL - Neck Neck exam general surgery: Present: supple, trachea midline. Absent: lymphadenopathy - Respiratory Respiratory exam: Present: CTAB. Absent: accessory muscle use, rales, rhonchi, wheezes - Cardiovascular Cardiovascular exam: Present: irregular rhythm (at rate of 90s.), +S1, +S2. Absent: diastolic murmur, gallop, rubs, systolic murmur - GI/Abdominal GI/Abdominal exam: Present: normal bowel sounds, soft, no peritoneal signs. Absent: distended, tenderness - Extremities Exam Extremities exam: Present: warm, radial pulses palpable and symetrical. Absent : calf tenderness, cyanotic, pedal edema - Neurological Exam Neurological exam: Present: CN II-XII intact, oriented X3, no focal deficits. Absent: pronater drift, facial droop, speech deficit - Skin Skin exam: Present: dry, intact Internal Medicine: Result - Labs CBC & Chem 7: 12/06/16 06:28 12/06/16 06:28 Labs: Short CBC 12/06/16 Range/Units 06:28 WBC 3.8 L (4.3-11.1) K/mcL Hgb 12.4 (11.5-15.4) g/dL Hct 36.3 (35.3-44.9) % Plt Count 93 L (140-400) K/mcL BMP 12/06/16 06:28 Sodium 128 L Potassium 3.3 L Chloride 94 L Carbon Dioxide 25 BUN 50 H D Creatinine 1.58 H Glucose 127 H Calcium 8.2 L - ABG Interpretation ABG results: PT/INR, D-dimer PT 14.3 Seconds (9.4-12.1) H 12/05/16 05:21 Consult Discharge Plan - Plan Referrals: Mili Rome, RESIDENT CARE ASSISTANT [Primary Care Provider] - <Gamal Brower - Last Filed: 12/06/16 16:53> Date of Encounter: 12/06/16 - Assessment and plan (1) Hypotension Current Visit: Yes Status: Acute Qualifiers: Hypotension type: other hypotension type Qualified Code(s): I95.89 - Other hypotension (2) Atrial fibrillation Current Visit: Yes Status: Acute Qualifiers: Atrial fibrillation type: chronic Qualified Code(s): I48.2 - Chronic atrial fibrillation (3) Hyponatremia Current Visit: Yes Status: Acute (4) Diastolic heart failure Current Visit: Yes Status: Chronic Qualifiers: Heart failure chronicity: acute on chronic Qualified Code(s): I50.33 - Acute on chronic diastolic (congestive) heart failure (5) Type 2 diabetes mellitus Current Visit: No Status: Chronic Qualifiers: Diabetes mellitus complication status: without complication Diabetes mellitus manager drug insulin use: without manager drug use Qualified Code(s): E11.9 - Type 2 diabetes mellitus without complications (6) Hypertension Current Visit: Yes Status: Chronic Qualifiers: Hypertension type: essential hypertension Qualified Code(s): I10 - Essential (primary) hypertension (7) UTI (urinary tract infection) Current Visit: Yes Status: Acute Qualifiers: Urinary tract infection type: acute cystitis Hematuria presence: without hematuria Qualified Code(s): N30.00 - Acute cystitis without hematuria (8) Microcytic anemia Current Visit: No Status: Chronic (9) Acute kidney injury Current Visit: Yes Status: Acute - Constitutional Vitals: Temp Pulse Resp BP Pulse Ox 98.3 F 90 16 96/55 96 12/06/16 11:07 12/06/16 16:28 12/06/16 16:28 12/06/16 16:28 12/06/16 16:28 Internal Medicine: Result - Labs CBC & Chem 7: 12/06/16 06:28 12/06/16 06:28 Labs: Short CBC 12/06/16 Range/Units 06:28 WBC 3.8 L (4.3-11.1) K/mcL Hgb 12.4 (11.5-15.4) g/dL Hct 36.3 (35.3-44.9) % Plt Count 93 L (140-400) K/mcL BMP 12/06/16 06:28 Sodium 128 L Potassium 3.3 L Chloride 94 L Carbon Dioxide 25 BUN 50 H D Creatinine 1.58 H Glucose 127 H Calcium 8.2 L - ABG Interpretation ABG results: PT/INR, D-dimer PT 14.3 Seconds (9.4-12.1) H 12/05/16 05:21 - Attending Attestation I examined this patient and my medical decision-making was reviewed with the Resident Physician on 12/06/16. I agree with the documented findings, disposition and treatment plan as described except to the extent set forth below. Ms. Whitman is currently admitted for rapid a fib and hypotension. She remains moderate to high risk due to potential for worsening cardiac status. Ms. Whitman is up in chair. She feels somewhat better but BP is still low today. No tachycardia. No fever or chills. No GI symptoms. Exam Alert. Comfortable Heart irreg - not tachy Lungs clear Abd soft No edema I/P 1. Hypotension 2. Hyponatremia 3. A fib Further diagnoses and plan as above.
[2016-12-06] MEDS: rOPINIRole 1 MG TABLET PO SCH (22:20)
[2016-12-07] MEDS ORDERED: Cosyntropin 250 MCG/2 ML VIAL IVP ONE (06:30)
[2016-12-07] MEDS: *HR* Heparin 5,000 UNIT/ML VIAL SQ SCH ×3 (06:42→21:17)
[2016-12-07 07:10] LABS: BUN/Creatinine Ratio 40 (6-26); Blood Urea Nitrogen 40 mg/dL (7-20); Calcium 8.5 mg/dL (8.6-10.8); Carbon Dioxide 25 mEq/L (19-29); Chloride 97 mEq/L (98-109); Glucose 100 mg/dL (70-99); Magnesium 2.1 mg/dL (1.6-2.6); Osmolality,Calculated 284 (280-300); Potassium 3.8 mEq/L (3.5-4.5); Sodium 132 mEq/L (136-145); eGFR For African Americans > 60 (> 60); eGFR For Non-African Americans 54 (> 60)
[2016-12-07 07:24] LABS: Basophils % 0.3 %; Hematocrit 34.8 % (35.3-44.9); Hemoglobin 12.1 g/dL (11.5-15.4); Immature Granulocytes % 0.7 % (0-4); Lymphocytes # 0.4 K/mcL (0.6-4.6); Lymphocytes % 13.4 %; Mean Corpuscular HGB Conc 34.8 g/dL (31.6-35.5); Mean Corpuscular Hemoglobin 26.8 pg (28.0-33.3); Mean Platelet Volume 12.5 fL (9.4-12.4); Monocytes # 0.2 K/mcL (0.0-1.3); Monocytes % 7.7 %; Neutrophils # 2.3 K/mcL (1.6-8.9); Red Blood Count 4.52 M/mcL (3.82-4.97); Red Cell Distribution Width 14.4 % (11.5-14.5); Segmented Neutrophils % 77.9 %
[2016-12-07 07:25] LABS: Platelet Count 99 K/mcL (140-400)
[2016-12-07] MEDS: Budesonide/Formoterol 160/4.5 MDI IH SCH ×2 (08:09→22:12)
[2016-12-07] MEDS: Aspirin Enteric Coated 81 MG Tablet PO SCH (08:41)
[2016-12-07] MEDS: Famotidine 20 MG TABLET PO SCH ×2 (08:41→15:46)
[2016-12-07] MEDS: Cholecalciferol (D-3) 1,000 UNIT TABLET PO SCH (08:42)
[2016-12-07] MEDS: Diltiazem CD (24hr) 120 MG CAPSULE PO SCH (08:42)
[2016-12-07] MEDS: Nystatin POWDER 30 GM BOTTLE TP SCH ×2 (08:44→20:42)
[2016-12-07] MEDS: Insulin LISPRO 300 UNITS/3 ML VIAL SQ SCH ×4 (08:44→20:41)
[2016-12-07] MEDS ORDERED: 0.9 % Sodium Chloride 500 ML IVC SCH (08:45)
--- NOTE | 2016-12-07 11:28 | Internal Med Progress Note ---
<Brittney Guallpa - Last Filed: 12/07/16 14:08> Date of Encounter: 12/07/16 Time of Encounter: 09:00 - Assessment and plan (1) Acute kidney injury Current Visit: Yes Status: Acute Assessment and plan: - SCr as high as 1.63 on 12/05/16. - Likely secondary to dehydration - Cautious about IV fluid given patient's known history of diastolic dysfunction. - SCr improves to 0.99 today after one bolus of 500 mL NS yesterday. - Will give another one bolus of 500 mL NS slowly. - Continue to monitor electrolytes and renal function. (2) Hypotension Current Visit: Yes Status: Acute Assessment and plan: - BP as low as 79/45 on 12/05/16. - Asymptomatic. - Likely due to dehydration. - Relatively stable around 90s/50s at this time. - Will have ACTH challenge test tomorrow morning to rule out adrenal insufficiency. - Continue to hold lisinopril, Lasix, chlorthalidone - Will give another one bolus of 500 mL NS slowly. - Continue to monitor Qualifiers: Hypotension type: other hypotension type Qualified Code(s): I95.89 - Other hypotension (3) Atrial fibrillation with rapid ventricular response Current Visit: No Status: Acute Assessment and plan: - EKG on admission revealed atrial fibrillation with rapid ventricular response at rate of 145 - Currently rate-controlled with heart rate around 100s. - PO Cardizem was held this morning due to hypotension. - Not on anticoagulation at home except aspirin 81 mg due to fall risks. - Continue close monitoring with telemetry. (4) Hyponatremia Current Visit: Yes Status: Acute Assessment and plan: - Hypotonic hyponatremia with Na 129 on admission, likely hypovolemic or euvolemic. - Na improved to 132 today after one bolus of 500 mL IV NS at slowrate. - Differential includes SIADH, adrenal insufficiency, renal loss, CHF. - Will check urine Na and osm. - Fluid restriction of 1.5L. - Continue to monitor. (5) UTI (urinary tract infection) Current Visit: Yes Status: Acute Assessment and plan: - UA positive for nitrites with small leukocyte esterase. - Urine culture grew keen-sensitive E. coli. - Patient reports no urinary symptoms but will still treat given she did have fever and leukopenia on admission. - Continue IV Rocephin (since 12/05/16). Qualifiers: Urinary tract infection type: acute cystitis Hematuria presence: without hematuria Qualified Code(s): N30.00 - Acute cystitis without hematuria (6) Diastolic heart failure Current Visit: Yes Status: Chronic Assessment and plan: - Echo on 12/05/26 showed LVEF 60-65% and indeterminate diastolic function due to atrial fibrillation. - Prior echo in 2014 did show moderate LV diastolic dysfunction. - Strict I/O and daily weight. - Low salt diet with fluid restriction of 1.5L. Qualifiers: Heart failure chronicity: acute on chronic Qualified Code(s): I50.33 - Acute on chronic diastolic (congestive) heart failure (7) Type 2 diabetes mellitus Current Visit: No Status: Chronic Assessment and plan: - Blood sugars well controlled at this time. - Continue insulin sliding scale with routine monitoring of blood glucose. Qualifiers: Diabetes mellitus complication status: without complication Diabetes mellitus child protective investigator insulin use: without alf use Qualified Code(s): E11.9 - Type 2 diabetes mellitus without complications (8) DVT prophylaxis Current Visit: Yes Status: Acute Assessment and plan: - Continue SQ heparin. - Subjective Interval history: No significant event noted overnight. Patient was seen and examined this morning. Patient has no complaint and denies fever, chills, shortness of breath , chest pain, palpitation, nausea, vomiting, diarrhea. - Constitutional Vitals: Temp Pulse Resp BP Pulse Ox 97.8 F 102 16 108/69 93 12/07/16 08:21 12/07/16 08:21 12/07/16 08:21 12/07/16 08:21 12/07/16 08:21 General appearance: Present: A&O X 3, pleasant, no acute distress, answers questions appropriately - Head Head exam: Present: atraumatic, normocephalic - Eye Eye exam: Present: EOMI, PERRL, conjuntiva pink, sclera anicteric - Neck Neck exam general surgery: Present: supple, trachea midline. Absent: lymphadenopathy - Respiratory Respiratory exam: Present: CTAB. Absent: accessory muscle use, rales, rhonchi, wheezes - Cardiovascular Cardiovascular exam: Present: RRR, +S1, +S2. Absent: diastolic murmur, gallop, rubs, systolic murmur - GI/Abdominal GI/Abdominal exam: Present: normal bowel sounds, soft, no peritoneal signs. Absent: distended, tenderness - Extremities Exam Extremities exam: Present: warm, radial pulses palpable and symetrical. Absent : calf tenderness, cyanotic, pedal edema - Neurological Exam Neurological exam: Present: oriented X3, no focal deficits. Absent: pronater drift, facial droop, speech deficit - Skin Skin exam: Present: dry, intact, warm Internal Medicine: Result - Labs CBC & Chem 7: 12/07/16 05:56 12/07/16 05:56 Labs: Short CBC 12/07/16 Range/Units 05:56 WBC 3.0 L (4.3-11.1) K/mcL Hgb 12.1 (11.5-15.4) g/dL Hct 34.8 L (35.3-44.9) % Plt Count 99 L (140-400) K/mcL Neutrophils # 2.3 (1.6-8.9) K/mcL BMP 12/07/16 05:56 Sodium 132 L Potassium 3.8 Chloride 97 L Carbon Dioxide 25 BUN 40 H D Creatinine 0.99 Glucose 100 H Calcium 8.5 L - ABG Interpretation ABG results: PT/INR, D-dimer PT 14.3 Seconds (9.4-12.1) H 12/05/16 05:21 Consult Discharge Plan - Plan Referrals: Mili Rome, JUSTIN [Primary Care Provider] - <Gamal Brower - Last Filed: 12/07/16 16:18> Date of Encounter: 12/07/16 - Assessment and plan (1) Hypotension Current Visit: Yes Status: Acute Qualifiers: Hypotension type: other hypotension type Qualified Code(s): I95.89 - Other hypotension (2) Atrial fibrillation Current Visit: Yes Status: Acute Qualifiers: Atrial fibrillation type: chronic Qualified Code(s): I48.2 - Chronic atrial fibrillation (3) Hyponatremia Current Visit: Yes Status: Acute (4) Diastolic heart failure Current Visit: Yes Status: Chronic Qualifiers: Heart failure chronicity: acute on chronic Qualified Code(s): I50.33 - Acute on chronic diastolic (congestive) heart failure (5) Type 2 diabetes mellitus Current Visit: No Status: Chronic Qualifiers: Diabetes mellitus complication status: without complication Diabetes mellitus alf insulin use: without alf use Qualified Code(s): E11.9 - Type 2 diabetes mellitus without complications (6) Hypertension Current Visit: Yes Status: Chronic Qualifiers: Hypertension type: essential hypertension Qualified Code(s): I10 - Essential (primary) hypertension (7) UTI (urinary tract infection) Current Visit: Yes Status: Acute Qualifiers: Urinary tract infection type: acute cystitis Hematuria presence: without hematuria Qualified Code(s): N30.00 - Acute cystitis without hematuria (8) Acute kidney injury Current Visit: Yes Status: Acute (9) Microcytic anemia Current Visit: No Status: Chronic - Constitutional Vitals: Temp Pulse Resp BP Pulse Ox 97.8 F 102 16 108/69 93 12/07/16 08:21 12/07/16 08:21 12/07/16 08:21 12/07/16 08:21 12/07/16 08:21 Internal Medicine: Result - Labs CBC & Chem 7: 12/07/16 05:56 12/07/16 05:56 Labs: Short CBC 12/07/16 Range/Units 05:56 WBC 3.0 L (4.3-11.1) K/mcL Hgb 12.1 (11.5-15.4) g/dL Hct 34.8 L (35.3-44.9) % Plt Count 99 L (140-400) K/mcL Neutrophils # 2.3 (1.6-8.9) K/mcL BMP 12/07/16 05:56 Sodium 132 L Potassium 3.8 Chloride 97 L Carbon Dioxide 25 BUN 40 H D Creatinine 0.99 Glucose 100 H Calcium 8.5 L - ABG Interpretation ABG results: PT/INR, D-dimer PT 14.3 Seconds (9.4-12.1) H 12/05/16 05:21 - Attending Attestation I examined this patient and my medical decision-making was reviewed with the Resident Physician on 12/07/16. I agree with the documented findings, disposition and treatment plan as described except to the extent set forth below. Ms. Whitman is currently admitted for hypotension, WERNER and rapid a fib. She remains moderate to high risk due to potential for worsening renal and clinical status. Ms. Whitman is up in chair. She feels OK. Denies pain. No dyspnea. Renal function improving with IV fluids. BP seems somewhat better today. Exam Alert. Comfortable Mucus membranes dry Heart irreg - not tachy Lungs clear Abd soft No edema I/P 1. Hypotension 2. Hyponatremia 3. A fib Further diagnoses and plan as above Possible d/c tomorrow with [facility].
[2016-12-07] MEDS: rOPINIRole 1 MG TABLET PO SCH (20:41)
[2016-12-08 03:37] LABS: Hematocrit 31.3 % (35.3-44.9); Hemoglobin 10.6 g/dL (11.5-15.4); Mean Corpuscular HGB Conc 33.9 g/dL (31.6-35.5); Mean Corpuscular Hemoglobin 26.1 pg (28.0-33.3); Mean Corpuscular Volume 77.1 fL (83.0-100.0); Mean Platelet Volume 12.1 fL (9.4-12.4); Platelet Count 115 K/mcL (140-400); Red Blood Count 4.06 M/mcL (3.82-4.97); Red Cell Distribution Width 14.2 % (11.5-14.5)
[2016-12-08 03:52] LABS: BUN/Creatinine Ratio 40 (6-26); Blood Urea Nitrogen 34 mg/dL (7-20); Calcium 8.5 mg/dL (8.6-10.8); Carbon Dioxide 25 mEq/L (19-29); Chloride 100 mEq/L (98-109); Glucose 92 mg/dL (70-99); Osmolality,Calculated 281 (280-300); Potassium 3.5 mEq/L (3.5-4.5); Sodium 132 mEq/L (136-145); eGFR For African Americans > 60 (> 60); eGFR For Non-African Americans > 60 (> 60)
[2016-12-08] MEDS: *HR* Heparin 5,000 UNIT/ML VIAL SQ SCH ×2 (06:14→16:09)
[2016-12-08] MEDS: Cholecalciferol (D-3) 1,000 UNIT TABLET PO SCH (08:23)
[2016-12-08] MEDS: Famotidine 20 MG TABLET PO SCH ×2 (08:23→16:09)
[2016-12-08] MEDS: Diltiazem CD (24hr) 120 MG CAPSULE PO SCH (08:23)
[2016-12-08] MEDS: Aspirin Enteric Coated 81 MG Tablet PO SCH (08:23)
[2016-12-08] MEDS: Nystatin POWDER 30 GM BOTTLE TP SCH (08:24)
[2016-12-08] MEDS: Insulin LISPRO 300 UNITS/3 ML VIAL SQ SCH ×2 (08:24→11:48)
[2016-12-08] MEDS ORDERED: 0.9 % Sodium Chloride 500 ML IVC SCH (09:45)
[2016-12-08] MEDS: Budesonide/Formoterol 160/4.5 MDI IH SCH (10:57)
[2016-12-08] MEDS ORDERED: Hydrocortisone Sodium Succ 100 MG/2 ML VIAL IVP ONE (14:10)
--- NOTE | 2016-12-08 15:24 | Discharge Summary ---
<Jose Hubbard - Last Filed: 12/08/16 15:54> Date of Encounter: 12/08/16 Time of Encounter: 15:17 - Discharge Diagnosis (1) Atrial fibrillation with rapid ventricular response Priority: Primary Status: Acute (2) Hypotension Priority: Primary Status: Acute Qualifiers: Hypotension type: other hypotension type Qualified Code(s): I95.89 - Other hypotension (3) UTI (urinary tract infection) Priority: Primary Status: Acute Qualifiers: Urinary tract infection type: acute cystitis Hematuria presence: without hematuria Qualified Code(s): N30.00 - Acute cystitis without hematuria (4) Type 2 diabetes mellitus Priority: Secondary Status: Chronic Qualifiers: Diabetes mellitus complication status: without complication Diabetes mellitus intermodal dispatcher insulin use: without intermodal dispatcher use Qualified Code(s): E11.9 - Type 2 diabetes mellitus without complications (5) Acute kidney injury Priority: Primary Status: Resolved (6) DVT prophylaxis Priority: Primary Status: Acute (7) Adrenal insufficiency Priority: Primary Status: Acute - Discharge Medications Prescriptions: Hydrocortisone [Cortef] 5 mg PO BID #60 tablet Metoprolol [Lopressor] 12.5 mg PO BID #60 tablet Home Medications: Albuterol Sulfate [Albuterol Inhaler] 2 puff IH Q4HR 01/22/15 [History] Aspirin Enteric Coated [Aspirin EC] 81 mg PO DAILY 01/22/15 [History] Metformin [Glucophage] 500 mg PO HS 01/22/15 [History] Ranitidine HCl [Zantac] 300 mg PO DAILY 01/22/15 [History] Simvastatin [Zocor] 20 mg PO QPM 01/22/15 [History] Cholecalciferol (Vitamin D3) [Vitamin D3] 10,000 unit PO 2XW 07/26/15 [History] Cyclosporine [Restasis] 1 drop OP DAILY 07/26/15 [History] Ibuprofen [Motrin] 400 mg PO TID PRN 07/26/15 [History] Propylene Glycol/Peg 400 [Systane 0.3-0.4% Eye Drops] 1 drop OP AD 07/26/15 [ History] rOPINIRole [Requip] 1 mg PO HS 07/26/15 [History] Acetaminophen [Tylenol] 650 mg PO Q6HR PRN #0 tablet 02/06/16 [Rx] Umeclidinium Brm/Vilanterol Tr [Anoro Ellipta 62.5-25 Mcg INH] 1 puff IH BID 11/15 [History] Hydrocortisone [Cortef] 5 mg PO BID #60 tablet 12/08/16 [Rx] Metoprolol [Lopressor] 12.5 mg PO BID #60 tablet 12/08/16 [Rx] Allergies/Adverse Reactions: Allergies No Known Allergies Allergy (Verified 01/22/15 12:56) Procedures/tests Complete & Pending: Procedures Performed prior 72 hours Category Date Time Status EV echocardiogram Routine Y 12/05/16 14:41 Completed Date of admission: 12/04/16 14:22 Primary care physician: Mili Rome CNP Consults: 12/05/16 11:37 Consult to Occupational Therapy [CONS] Routine Comment: Evaluate, develop and implement POC Reason for Consult: Generalized weakness Discharging clinician: Jose Hubbard Anticipated date of discharge: 12/08/16 - Patient Status Disposition: Home, Self-Care Condition: Fair Functional capacity at discharge: uses cane/walker Overall status at discharge: patient is progressing back to baseline - Discharge Instructions Instructions: Atrial Fibrillation (DC), Urinary Tract Infection in Women (DC) Follow Up With: Mili Rome CNP [Primary Care Provider] - 12/18/16 1:00 pm (Please follow up as sschedule..) Additional Instructions: Be careful of salt in your diet. Remember to read labels carefully avoiding sodium. Also limit your fluid intake to 1500 mL per day. If you start to feel symptoms of shortness of breath, leg swelling, contact your primary care doctor. Remember to rise from laying down, sitting slowly with breaks as needed. - Diet and Activity Activity: ambulate only with your walker, increase activity as tolerated Diet: low salt diet Hospital course: Ms. Whitman is a 81 year old female who presented to [facility] from her primary care physician with the chief complaint of generalized weakness, tachycardia. Patient has a history of asthma, atrial fibrillation, congestive heart failure, type 2 diabetes, cerebrovascular accident, hyperlipidemia, hypertension. Patient reported that she had been feeling weak for a couple days, however. She had an appointment with her primary care physician scheduled so she waited. At her primary care doctor's office, patient was noted to have a heart rate of 145, patient has a history of permanent atrial fibrillation. Vital signs upon presentation were significant for hypotension with a blood pressure of 88/54. Patient's lab results were significant for platelets of 104, sodium of 128, potassium of 3.2, chloride of 91, BUN/creatinine of 34/1.63. Urinalysis was positive for nitrites, small leukocyte esterase, squamous cells, bacteria. Patient was admitted to medicine service with diagnosis of atrial fibrillation with rapid ventricular response, hypotension, urinary tract infection. In the emergency department, patient was started on Cardizem drip which has been controlling her heart rate less than 100 since admission. Cardizem drip was titrated down, and she was transitioned to oral medications. Patient has not been on anticoagulation secondary to falls, takes aspirin 81 mg per day. Patient's home medications of Lasix, lisinopril, chlorthalidone were held during admission secondary to hypotension. Echocardiogram on 12/05 showed a normal left ventricular ejection fraction of 60-65% with indeterminant diastolic function due to atrial fibrillation, severely dilated left atrium with mild aortic regurgitation. During admission, patient's metoprolol and Cardizem have been decreased and eventually held secondary to hypotension, patient has remained rate controlled during this time. Patient has received multiple 500 mL boluses slowly infused with correction of electrolyte abnormalities, improvement of hypotension. Patient also received ACTH challenge with results of an increase of blood pressure to 100 systolic. Patient was informed of results, and was prescribed a 5 mg twice a day dose of hydrocortisone for renal insufficiency. Patient's diuretics were is continued on discharge secondary to hypotension, patient was instructed to take her metoprolol at half dose which was 12.5 mg twice a day. She was also instructed on safe techniques for ranging positions, rising from a laying in seated position. Orthostatic blood pressure was negative on day of discharge. Patient was treated for urinary tract infection with 1 g IV Rocephin for 4 days while in hospital. She was discharged home in stable condition. She was Instructed to follow-up with her primary care physician within one week. - Time Spent with Patient Total time spent providing and/or coordinating discharge services: - Constitutional Vitals: Temp Pulse Resp BP Pulse Ox 97.8 F 77 20 92/57 97 12/08/16 11:24 12/08/16 11:24 12/08/16 11:24 12/08/16 11:24 12/08/16 11:24 General appearance: Present: A&O X 3, pleasant, no acute distress, answers questions appropriately Exam: Gen.: Vitals noted. No acute distress. AAOx3 HEENT: PERRL/EOMI, oropharynx clear, Normocephalic, atraumatic. Dry mucous membranes Neck: Supple. No adenopathy. Cardiac: Irregularly irregular rhythm, rate controlled, no murmur, +S1/S2 Pulmonary: CTA bilaterally, no wheezes, rales or rhonchi, equal chest expansion Abdomen: soft, nontender, BS noted, no guarding Back: Nontender throughout. MSK: ROM intact, no joint swelling noted Extremities: no BLE edema, nontender calf, no cyanosis or clubbing Neuro: A&Ox3, moves all extremities, no focal deficits Psych: Appropriate mood and behavior <Gamal Brower - Last Filed: 12/08/16 17:25> Date of Encounter: 12/08/16 - Discharge Diagnosis (1) Hypotension Status: Acute Qualifiers: Hypotension type: other hypotension type Qualified Code(s): I95.89 - Other hypotension (2) Atrial fibrillation Priority: Secondary Status: Acute Qualifiers: Atrial fibrillation type: chronic Qualified Code(s): I48.2 - Chronic atrial fibrillation (3) Hyponatremia Priority: Secondary Status: Acute (4) Diastolic heart failure Priority: Secondary Status: Chronic Qualifiers: Heart failure chronicity: acute on chronic Qualified Code(s): I50.33 - Acute on chronic diastolic (congestive) heart failure (5) Type 2 diabetes mellitus Status: Chronic Qualifiers: Diabetes mellitus complication status: without complication Diabetes mellitus fdc insulin use: without fdc use Qualified Code(s): E11.9 - Type 2 diabetes mellitus without complications (6) Hypertension Priority: Secondary Status: Chronic Qualifiers: Hypertension type: essential hypertension Qualified Code(s): I10 - Essential (primary) hypertension (7) UTI (urinary tract infection) Status: Acute Qualifiers: Urinary tract infection type: acute cystitis Hematuria presence: without hematuria Qualified Code(s): N30.00 - Acute cystitis without hematuria (8) Acute kidney injury Status: Resolved (9) Microcytic anemia Priority: Secondary Status: Chronic - Notes to Outpatient Provider We have a concern that she has adrenal insufficiency but were not successful in the testing. Her BP was low and responded to fluids and a dose of hydrocortisone. She was very dry on admit. She was sent out on only half her metoprolol, no diuretic and no fluid restriction. Date of admission: 12/04/16 14:22 Primary care physician: Mili Rome CNP Consults: 12/05/16 11:37 Consult to Occupational Therapy [CONS] Routine Comment: Evaluate, develop and implement POC Reason for Consult: Generalized weakness Hospital course: Ms. Whitman is a 81 year old female - Time Spent with Patient Total time spent providing and/or coordinating discharge services: 38min - Constitutional Vitals: Temp Pulse Resp BP Pulse Ox 97.8 F 86 20 115/62 97 12/08/16 11:24 12/08/16 15:50 12/08/16 11:24 12/08/16 16:09 12/08/16 11:24 - Attending Attestation I examined this patient and my medical decision-making was reviewed with the Resident Physician on 12/08/16. I agree with the documented findings, disposition and treatment plan as described except to the extent set forth below. Ms hWitman feels well today. Her BP is still low. Her creatinine has improved. She was given some hydrocortisone and BP has responded. No fever or chills. Exam Alert. Comfortable Mucus membranes moist Heart irreg not tachy Lungs clear Plan D/C home today with [facility] Low dose Hydrocortisone and follow up
[2016-12-08 16:10] VITALS: BP 115/62
--- NOTE | 2016-12-08 16:56 | Physician Discharge Referral ---
Home Health/Hosp Referral Info Transfer to: Home Health Provider in Charge Post Discharge: PCP - Diagnosis (1) Hypotension Priority: Primary Status: Acute (2) Atrial fibrillation Priority: Primary Status: Acute (3) Hyponatremia Priority: Primary Status: Acute (4) Diastolic heart failure Priority: Secondary Status: Chronic (5) Type 2 diabetes mellitus Priority: Secondary Status: Chronic (6) Hypertension Priority: Secondary Status: Chronic (7) UTI (urinary tract infection) Priority: Primary Status: Acute (8) Acute kidney injury Priority: Secondary Status: Resolved (9) Microcytic anemia Priority: Secondary Status: Chronic - Respiratory Orders None Smoking Cessation: Smoking cessation has been advised. For more information, call the [place] Tobacco Quit Line at 5-927-VBJK-NOW. - Diet/Nutrition Diet/Nutrition Orders: Cardiac - Activity Activity Orders: Up ad zoe - Services Needed Following services are medically necessary services: Nursing, Physical Therapy, Occupational Therapy - Transfer Medications Prescriptions: Hydrocortisone [Cortef] 5 mg PO BID #60 tablet Metoprolol [Lopressor] 12.5 mg PO BID #60 tablet Home Medications: Albuterol Sulfate [Albuterol Inhaler] 2 puff IH Q4HR 01/22/15 [History] Aspirin Enteric Coated [Aspirin EC] 81 mg PO DAILY 01/22/15 [History] Metformin [Glucophage] 500 mg PO HS 01/22/15 [History] Ranitidine HCl [Zantac] 300 mg PO DAILY 01/22/15 [History] Simvastatin [Zocor] 20 mg PO QPM 01/22/15 [History] Cholecalciferol (Vitamin D3) [Vitamin D3] 10,000 unit PO 2XW 07/26/15 [History] Cyclosporine [Restasis] 1 drop OP DAILY 07/26/15 [History] Ibuprofen [Motrin] 400 mg PO TID PRN 07/26/15 [History] Propylene Glycol/Peg 400 [Systane 0.3-0.4% Eye Drops] 1 drop OP AD 07/26/15 [ History] rOPINIRole [Requip] 1 mg PO HS 07/26/15 [History] Acetaminophen [Tylenol] 650 mg PO Q6HR PRN #0 tablet 02/06/16 [Rx] Umeclidinium Brm/Vilanterol Tr [Anoro Ellipta 62.5-25 Mcg INH] 1 puff IH BID 11/15 [History] Hydrocortisone [Cortef] 5 mg PO BID #60 tablet 12/08/16 [Rx] Metoprolol [Lopressor] 12.5 mg PO BID #60 tablet 12/08/16 [Rx] Allergies/Adverse Reactions: Allergies No Known Allergies Allergy (Verified 01/22/15 12:56) Certification: Further, I certify that my clinical findings support that this patient is homebound (i.e. absences from home require considerable and taxing effort and are for medical reasons or sabianist services or infrequently or short duration when for other reasons) because: Homebound Reason: Patient requires assistance of a person or device to safely leave home, Leaving home requires considerable and taxing effort due to condition, Severity of cardiac or pulmonary status limits activity tolerance Attestation: My signature below is to certify that this patient is under my care and that I, or nurse practitioner, or a physician's assistant floor covering printer working with me, has a face-to -face encounter with this patient.
== END 2016-12-08 17:39 | disposition home or self-care (01) | DRG 308 ==
LOC: 2ANU 10:48 → EMEROO 10:48 → 2ANU 14:00
PROVIDERS: ADMIT Family Medicine; ATTEND Internal Medicine

== ENCOUNTER 2016-12-29 12:20 | Inpatient (IN) ==
[2016-12-29 13:04] LABS: Basophils % 0.3 %; Eosinophils # 0.1 K/mcL (0.0-0.6); Eosinophils % 0.4 %; Immature Granulocytes % 0.5 % (0-4); Lymphocytes # 0.5 K/mcL (0.6-4.6); Lymphocytes % 3.8 %; Mean Corpuscular HGB Conc 32.4 g/dL (31.6-35.5); Mean Corpuscular Hemoglobin 26.3 pg (28.0-33.3); Mean Corpuscular Volume 81.3 fL (83.0-100.0); Mean Platelet Volume 9.6 fL (9.4-12.4); Monocytes # 0.3 K/mcL (0.0-1.3); Monocytes % 2.7 %; Neutrophils # 11.1 K/mcL (1.6-8.9); Platelet Count 211 K/mcL (140-400); Red Blood Count 4.18 M/mcL (3.82-4.97); Red Cell Distribution Width 15.1 % (11.5-14.5); Segmented Neutrophils % 92.3 %
[2016-12-29 13:14] LABS: BUN/Creatinine Ratio 24 (6-26); Blood Urea Nitrogen 19 mg/dL (7-20); Calcium 9.2 mg/dL (8.6-10.8); Carbon Dioxide 24 mEq/L (19-29); Chloride 104 mEq/L (98-109); Glucose 122 mg/dL (70-99); Osmolality,Calculated 288 (280-300); Potassium 4.2 mEq/L (3.5-4.5); Sodium 137 mEq/L (136-145); eGFR For African Americans > 60 (> 60); eGFR For Non-African Americans > 60 (> 60)
[2016-12-29] MEDS ORDERED: Furosemide 40 MG/4 ML VIAL IVP ONE (13:46)
--- NOTE | 2016-12-29 13:46 | Emergency Department Note ---
START Narrative - START START: I examined this patient and my medical decision-making was reviewed with the MINERALOGY PROFESSOR/PA/Advanced Practice Nurse/Resident Physician. I agree with the documented findings, disposition and treatment plan as described except to the extent set forth below. ED attending note: Patient seen with emergency medicine resident Dr CHESTER. We independently evaluated the patient. We independently had [id number] contact with the patient. Please see a copy of his note for details of the history and physical, evaluation, management and disposition of this emergency Department patient. Briefly: A 81-year-old female, multiple pack years tobacco history smoking presents with shortness of breath but denies chest pain bilateral crackles satting 90% on room air is not on home O2. Has COPD and CHF. Chest x-ray read as pleural effusions and pulmonary edema consistent with CHF. Awaiting troponin and other labs. Patient has got a breathing treatment will get IV diuretics self more oxygen and will be admitted. Provided 30 minutes critical care service for this patient. Disposition pending
--- NOTE | 2016-12-29 13:52 | Emergency Department Note ---
Disposition Clinical Impression: Hypoxemia, Atrial fibrillation with RVR Pulmonary edema Qualifiers: Chronicity: acute Qualified Code(s): J81.0 - Acute pulmonary edema Disposition: Admitted As Inpatient Condition: Fair Referrals: NONE,PCP [Non-Partnered Physician] - Forms: ED Satisfaction Letter Time of Disposition: 16:37 SOB HPI - General Chief Complaint: ED Shortness of Breath/Dyspnea Stated Complaint: PETER Time Seen by Provider: 12/29/16 13:22 Source: patient Mode of arrival: ambulatory Limitations: no limitations Nursing Notes Reviewed: Yes Vital Signs Reviewed: Yes - History of Present Illness Patient is an 81-year-old female who presents to [facility] ED with chief complaint of shortness of breath. States her symptoms worsened over the last 3 days. Especially worse today. She is not on any home oxygen. States she had quit smoking since she was discharged on December 08. However when she started feeling short of breath she thought maybe she was withdrawing from smoking so then she decided to start smoking again. States she felt better yesterday after smoking but then woke up this morning and was very short of breath. Admits to a cough that is productive of some yellow sputum to clear sputum at times. Denies any nausea, vomiting, fever. Has had some chills and started having diarrhea today. States she has had about 4-5 episodes. Denies any chest pain. Has had some mild abdominal discomfort with the diarrhea. Past medical history significant for atrial fibrillation, COPD, asthma, hypertension, hyperlipidemia, type 2 diabetes. Pt Subjective Complaint: shortness of breath Onset (ago): day(s) Severity: moderate Consistency/Duration: gradually worsening Improves with: rest Worsens with: exertion Known history of: COPD, asthma, congestive heart failure, diabetes Associated symptoms: Reports: cough, sputum production. Denies: chest pain, fever, nausea/vomiting Treatment prior to arrival: none Cough present: No - Related Data Home oxygen amount: none Home Medications Medication Instructions Recorded Confirmed Albuterol Sulfate [Albuterol 2 puff IH QID PRN 01/22/15 12/29/16 Inhaler] Aspirin Enteric Coated [Aspirin EC] 81 mg PO DAILY 01/22/15 12/29/16 Metformin [Glucophage] 500 mg PO HS 01/22/15 12/29/16 Ranitidine HCl [Zantac] 300 mg PO DAILY 01/22/15 12/29/16 Simvastatin [Zocor] 20 mg PO HS 01/22/15 12/29/16 Cholecalciferol (Vitamin D3) 5,000 unit PO DAILY 07/26/15 12/29/16 [Vitamin D3] Ibuprofen [Motrin] 400 mg PO TID PRN 07/26/15 12/29/16 rOPINIRole [Requip] 1 mg PO HS 07/26/15 12/29/16 Umeclidinium Brm/Vilanterol Tr 1 puff IH DAILY 12/04/16 12/29/16 [Anoro Ellipta 62.5-25 Mcg INH] Albuterol Neb [Proventil Neb] 2.5 mg IH BID PRN 12/29/16 12/29/16 Chlorthalidone 25 mg PO QAM 12/29/16 12/29/16 Diltiazem HCl [Diltiazem ER] 120 mg PO DAILY 12/29/16 12/29/16 Furosemide [Lasix] 40 mg PO DAILY 12/29/16 12/29/16 Lisinopril 2.5 mg PO BID 12/29/16 12/29/16 Previous Rx's Medication Instructions Recorded Hydrocortisone [Cortef] 5 mg PO BID #60 tablet 12/08/16 Metoprolol [Lopressor] 12.5 mg PO BID #60 tablet 12/08/16 Allergies Allergy/AdvReac Type Severity Reaction Status Date / Time No Known Allergies Allergy Verified 12/29/16 13:35 All systems ED: reviewed and negative except as stated. Past Medical History - Past Medical History Attestation: Yes The following information was validated with the patient. Source: patient Medical history: Reports: asthma, atrial fibrillation, CHF, CVA, diabetes, hypertension, other Surgical history: Reports: hysterectomy, orthopedic, other, other Psychiatric history: Reports: no psych history - Social History Smoking Status: Current some day smoker Smokeless Tobacco Status: No Alcohol use: Reports: occasionally Drug use: Reports: none Physical Exam - General Limitations: no limitations General appearance: alert, in no apparent distress - Head Head exam: atraumatic, normocephalic, normal inspection - Eye Eye exam: Present: normal appearance, PERRL, EOMI - ENT ENT exam: normal exam, normal oropharynx, mucous membranes moist - Neck Neck exam: Present: normal inspection, full ROM, trachea midline - Chest Chest inspection: Present: normal inspection, symmetric chest wall rise - Respiratory Respiratory exam: Present: other - Cardiovascular Cardiovascular exam: Present: regular rate, normal rhythm, normal heart sounds - Abdominal Exam Abdominal exam: Present: soft, Non-Tender. Absent: tenderness, distention, guarding, rebound, rigidity - Extremities Exam Extremities exam: Present: pedal edema (2+ pitting) - Back Exam Back exam: Present: normal inspection, full ROM. Absent: tenderness - Neurological Exam Neurological exam: Present: alert - Psychiatric Psychiatric exam: Present: normal affect, normal mood - Skin Skin exam: Present: warm, dry, intact, normal color Course Course Narrative: Patient seen and examined. Shortness of breath. Upon examination, patient has bibasilar crackles in bilateral lungs. She while sitting there is saturating 90 % with good waveform on the O2 monitor. She does not have any home oxygen. She is not overly tachypneic at this time. Maintaining her airway and does not show any signs of respiratory distress. We will initiate BiPAP if needed. However she appears stable at this time. We will give a dose of 40 mg IV Lasix. Patient's EKG also shows that she is in atrial fibrillation with RVR. Her rate ranges from the low 100s to 130s. Patient does have a history of chronic atrial fibrillation on Cardizem. Cardiopulmonary workup was initiated. Chest x-ray shows pulmonary edema with bilateral pleural effusions. BNP is elevated in the 200s. Troponin negative. We will admit for CHF exacerbation, hypoxemia. - Reevaluation(s) Reevaluation #1: I spoke with hospitalist about the patient was concerned that patient would need to be on a Cardizem drip and this would make her further hypotensive. He did not feel that she was stable enough for the floor. I then spoke with the in store marketing representative and Dr. Abraham who recommends trying digoxin to help manage the A. fib with RVR and then admission to 2 N. I again spoke with hospitalist Dr. Pedroza who has accepted patient for admission. Time: 16:36 Vital Signs Temperature 98.2 F 12/29/16 12:21 Pulse Rate 137 12/29/16 12:21 Respiratory Rate 22 12/29/16 12:21 Blood Pressure 114/70 12/29/16 12:21 O2 Sat by Pulse Oximetry 90 12/29/16 12:21 Temperature 98.2 F 12/29/16 12:21 Pulse Rate 116 12/29/16 14:06 Respiratory Rate 22 12/29/16 14:06 Blood Pressure 94/48 12/29/16 14:06 O2 Sat by Pulse Oximetry 93 12/29/16 14:06 Oxygen Delivery Oxygen Delivery Nasal Cannula Shortness of Breath/Dyspnea - Medical Records Medical records reviewed: Yes I reviewed the patient's medical records. - Lab Data Lab results reviewed: Yes I reviewed the patient's lab results. Result diagrams: 12/29/16 12:54 12/29/16 12:54 Lab Results 12/29/16 12/29/16 12/29/16 Range/Units 12:54 12:54 12:54 WBC 12.0 H (4.3-11.1) K/mcL RBC 4.18 (3.82-4.97) M/mcL Hgb 11.0 L (11.5-15.4) g/dL Hct 34.0 L (35.3-44.9) % MCV 81.3 L (83.0-100.0) fL MCH 26.3 L (28.0-33.3) pg MCHC 32.4 (31.6-35.5) g/dL RDW 15.1 H (11.5-14.5) % Plt Count 211 (140-400) K/mcL MPV 9.6 (9.4-12.4) fL Immature Gran % 0.5 (0-4) % Seg Neutrophils % 92.3 % Lymphocytes % 3.8 % Monocytes % 2.7 % Eosinophils % 0.4 % Basophils % 0.3 % Neutrophils # 11.1 H (1.6-8.9) K/mcL Lymphocytes # 0.5 L (0.6-4.6) K/mcL Monocytes # 0.3 (0.0-1.3) K/mcL Eosinophils # 0.1 (0.0-0.6) K/mcL Basophils # 0.0 (0.0-0.2) K/mcL Sodium 137 (136-145) mEq/L Potassium 4.2 (3.5-4.5) mEq/L Chloride 104 (98-109) mEq/L Carbon Dioxide 24 (19-29) mEq/L BUN 19 (7-20) mg/dL Creatinine 0.80 (0.57-1.11) mg/dL Est GFR ( Amer) > 60 (> 60) Est GFR (Non-Af Amer) > 60 (> 60) BUN/Creatinine Ratio 24 (6-26) Glucose 122 H (70-99) mg/dL Calculated Osmolality 288 (280-300) Lactic Acid 1.1 (0.5-2.2) mmol/L Calcium 9.2 (8.6-10.8) mg/dL Troponin I (0-0.03) ng/mL B-Natriuretic Peptide (0-100) pg/mL 12/29/16 12/29/16 Range/Units 12:54 12:54 WBC (4.3-11.1) K/mcL RBC (3.82-4.97) M/mcL Hgb (11.5-15.4) g/dL Hct (35.3-44.9) % MCV (83.0-100.0) fL MCH (28.0-33.3) pg MCHC (31.6-35.5) g/dL RDW (11.5-14.5) % Plt Count (140-400) K/mcL MPV (9.4-12.4) fL Immature Gran % (0-4) % Seg Neutrophils % % Lymphocytes % % Monocytes % % Eosinophils % % Basophils % % Neutrophils # (1.6-8.9) K/mcL Lymphocytes # (0.6-4.6) K/mcL Monocytes # (0.0-1.3) K/mcL Eosinophils # (0.0-0.6) K/mcL Basophils # (0.0-0.2) K/mcL Sodium (136-145) mEq/L Potassium (3.5-4.5) mEq/L Chloride (98-109) mEq/L Carbon Dioxide (19-29) mEq/L BUN (7-20) mg/dL Creatinine (0.57-1.11) mg/dL Est GFR ( Amer) (> 60) Est GFR (Non-Af Amer) (> 60) BUN/Creatinine Ratio (6-26) Glucose (70-99) mg/dL Calculated Osmolality (280-300) Lactic Acid (0.5-2.2) mmol/L Calcium (8.6-10.8) mg/dL Troponin I 0.00 (0-0.03) ng/mL B-Natriuretic Peptide 296 H (0-100) pg/mL - Radiology Data Radiology results reviewed: Yes I reviewed the patient's radiology results. Chest X-Ray 12/29/16 12:29 IMPRESSION: Findings of pulmonary edema with pleural effusions. D/ / Trevor Osorio MD / Trevor Osorio MD Interpreting Provider: Trevor Osorio MD - EKG Data EKG attestation: Yes I reviewed and interpreted this EKG. EKG results narrative: EKG done at 1322 shows atrial fibrillation with RVR. Rate [address] elevation or depression. Global throughout. Normal axis. Q wave noted in lead 3. Unchanged from prior EKG done 01/23/2015.
[2016-12-29] MEDS ORDERED: *HR* Digoxin 0.5 MG/2 ML AMPUL IVP ONE (15:26)
[2016-12-29] MEDS ORDERED: Ondansetron ODT 4 MG TAB.RAPDIS SL PRN (15:44)
[2016-12-29] MEDS ORDERED: *HR* HYDROcodone/Acet 5/325 mg TABLET PO PRN (15:44)
[2016-12-29] MEDS ORDERED: Acetaminophen 325 MG TABLET PO PRN (15:44)
[2016-12-29] MEDS ORDERED: Naloxone 0.4 MG/ML INJ IVP PRN (15:44)
[2016-12-29] MEDS ORDERED: Ondansetron 4 MG/2 ML VIAL IVP PRN (15:44)
[2016-12-29] MEDS ORDERED: *HR* Morphine 2 MG/ML SYRINGE IVP PRN (15:44)
--- NOTE | 2016-12-29 17:00 | Pulmonology Consult Note ---
<Nehemiah Concepcion - Last Filed: 12/29/16 18:20> Date of Encounter: 12/29/16 Time of Encounter: 16:55 Assessment and Plan (1) Dyspnea Current Visit: No Status: Acute The patient's dyspnea is likely due to her diastolic heart failure. Based on the chest x-ray and physical exam it appears like the patient is fluid overloaded. We recommended that the patient is diuresed to improve the shortness of breath and fluid overload. We will also add on albuterol, Symbicort and DuoNeb to help with the patient's dyspnea. Patient is currently on 2 L of oxygen. Can wean the patient from oxygen as tolerated Qualifiers: Dyspnea type: shortness of breath Qualified Code(s): R06.02 - Shortness of breath (2) Diastolic heart failure Current Visit: No Status: Chronic Plan: Due the patient's symptoms of shortness of breath and physical exam showing crackles bilaterally as well as the chest x-ray showing pulmonary edema with possible pleural effusion I recommended we diurese the patient at this time to help improve her shortness of breath and her fluid overload. This will be managed by the hospitalist. Qualifiers: Heart failure chronicity: acute on chronic Qualified Code(s): I50.33 - Acute on chronic diastolic (congestive) heart failure (3) Atrial fibrillation with RVR Current Visit: Yes Status: Acute Plan: The patient's Atrial fibrillation with rapid ventricular response and be managed by the hospitalist. (4) Hypotension Current Visit: No Status: Acute This will be managed by the hospitalist. Qualifiers: Hypotension type: other hypotension type Qualified Code(s): I95.89 - Other hypotension (5) Type 2 diabetes mellitus Current Visit: No Status: Chronic The patient's type 2 diabetes will be managed by the hospitalist. Qualifiers: Diabetes mellitus complication status: without complication Diabetes mellitus skilled nursing insulin use: without skilled nursing use Qualified Code(s): E11.9 - Type 2 diabetes mellitus without complications History of Present Illness Consult date: 12/29/16 Requesting physician: Josie Pedroza Reason for consult: dyspnea Chief complaint: Shortness of breath History of present illness: The patient is an 81-year-old female with a past medical history of COPD, CHF, diabetes, hypertension, atrial fibrillation and prior stroke. Patient states that yesterday she smokes 2 cigarettes after having not smoked for the past 20 days. This morning she then awoke having increase in her cough which is productive with white sputum. She states that she has tried using her inhaler and nebulizer with little relief. She states that she had significant shortness of breath and was the worst that it has ever been. Patient states that the reason that she came in today was due to the increase in shortness of breath and feeling like she could not breathe. Patient denies coughing up any blood. Past Med Surg Social Fam HX - Past Medical History Medical history: asthma, atrial fibrillation, CHF, CVA, diabetes, hypertension, other Psychiatric history: no psych history - Past Surgical History Surgical History: hysterectomy, orthopedic, other, other - Social History Smoking Status: Current some day smoker Smokeless Tobacco Status: No Alcohol use: occasionally Drug use: none - Family History Grandmother Family Member Ethnicity: Non- Living Status: Hx Family Cardiac Disorders: Yes Hx Family Respiratory Disorders: No Hx Family Cancer: Yes Hx Family GI Disorders: No Hx Family Endocrine Disorder: Yes Hx Family Neuromuscular Disorders: No Hx Family Neurologic Disorders: No Hx Family HEENT Disorders: No Hx Family Autoimmune Disorders: No Medications and Allergies Albuterol Sulfate [Albuterol Inhaler] 2 puff IH QID PRN 01/22/15 [History] Aspirin Enteric Coated [Aspirin EC] 81 mg PO DAILY 01/22/15 [History] Metformin [Glucophage] 500 mg PO HS 01/22/15 [History] Ranitidine HCl [Zantac] 300 mg PO DAILY 01/22/15 [History] Simvastatin [Zocor] 20 mg PO HS 01/22/15 [History] Cholecalciferol (Vitamin D3) [Vitamin D3] 5,000 unit PO DAILY 07/26/15 [History] Ibuprofen [Motrin] 400 mg PO TID PRN 07/26/15 [History] rOPINIRole [Requip] 1 mg PO HS 07/26/15 [History] Umeclidinium Brm/Vilanterol Tr [Anoro Ellipta 62.5-25 Mcg INH] 1 puff IH DAILY 12/04/16 [History] Hydrocortisone [Cortef] 5 mg PO BID #60 tablet 12/08/16 [Rx] Metoprolol [Lopressor] 12.5 mg PO BID #60 tablet 12/08/16 [Rx] Albuterol Neb [Proventil Neb] 2.5 mg IH BID PRN 12/29/16 [History] Chlorthalidone 25 mg PO QAM 12/29/16 [History] Diltiazem HCl [Diltiazem ER] 120 mg PO DAILY 12/29/16 [History] Furosemide [Lasix] 40 mg PO DAILY 12/29/16 [History] Lisinopril 2.5 mg PO BID 12/29/16 [History] Allergies No Known Allergies Allergy (Verified 12/29/16 13:35) All Systems: A 10-system review of systems was performed and is negative for pertinent findings except as documented above in the HPI. - Respiratory Respiratory: cough, dyspnea Physical Examination General appearance: no acute distress, alert Eyes: nonicteric ENT: oropharynx moist Neck: supple, no lymphadenopathy, no JVD Effort: mildly labored Inspection: kyphosis Auscultation: right: wheezes, bilateral: rales, other (Crackles bilaterally) Cardiovascular: irregular rhythm (With tachycardia) Gastrointestinal: normoactive bowel sounds, soft, non-tender, non-distended Integumentary: other (Diffuse ecchymosis of the upper extremities) Extremities: no cyanosis, pink and warm, edema (2+ edema in the lower extremities), other (Normal cap refill) Musculoskeletal: no deformities normal mental status, non-focal exam, pupils equal and round mood appropriate, affect normal Results - Laboratory Findings CBC and BMP: 12/29/16 12:54 12/29/16 12:54 Abnormal lab findings: Abnormal lab results WBC 12.0 K/mcL (4.3-11.1) H 12/29/16 12:54 Hgb 11.0 g/dL (11.5-15.4) L 12/29/16 12:54 Hct 34.0 % (35.3-44.9) L 12/29/16 12:54 MCV 81.3 fL (83.0-100.0) L 12/29/16 12:54 MCH 26.3 pg (28.0-33.3) L 12/29/16 12:54 RDW 15.1 % (11.5-14.5) H 12/29/16 12:54 Neutrophils # 11.1 K/mcL (1.6-8.9) H 12/29/16 12:54 Lymphocytes # 0.5 K/mcL (0.6-4.6) L 12/29/16 12:54 Glucose 122 mg/dL (70-99) H 12/29/16 12:54 B-Natriuretic Peptide 296 pg/mL (0-100) H 12/29/16 12:54 - Diagnostic Findings Chest x-ray: report reviewed, image reviewed Consult Discharge Plan - Plan Referrals: Mili Rome, FINGER WAVER [Primary Care Provider] - <Beltran Abraham - Last Filed: 12/29/16 20:26> Date of Encounter: 12/29/16 All Systems: A 10-system review of systems was performed and is negative for pertinent findings except as documented above in the HPI. Physical Examination Vital Signs: Vital Signs, Last 4 Hours Temp Pulse Resp BP Pulse Ox 12/29/16 17:38 97.7 F 90 18 117/63 95 12/29/16 17:36 98 Results - Laboratory Findings CBC and BMP: 12/29/16 12:54 12/29/16 12:54 Abnormal lab findings: Abnormal lab results WBC 12.0 K/mcL (4.3-11.1) H 12/29/16 12:54 Hgb 11.0 g/dL (11.5-15.4) L 12/29/16 12:54 Hct 34.0 % (35.3-44.9) L 12/29/16 12:54 MCV 81.3 fL (83.0-100.0) L 12/29/16 12:54 MCH 26.3 pg (28.0-33.3) L 12/29/16 12:54 RDW 15.1 % (11.5-14.5) H 12/29/16 12:54 Neutrophils # 11.1 K/mcL (1.6-8.9) H 12/29/16 12:54 Lymphocytes # 0.5 K/mcL (0.6-4.6) L 12/29/16 12:54 Glucose 122 mg/dL (70-99) H 12/29/16 12:54 B-Natriuretic Peptide 296 pg/mL (0-100) H 12/29/16 12:54 - Clinical Findings Intake & Output: Intake & Output 12/29/16 12/29/16 12/29/16 07:59 15:59 23:59 Intake Total 0 / 0 Output Total 400 / 400 Balance -400 / -400 Weight 93.8 kg - Attending Attestation I examined this patient and my medical decision-making was reviewed with the Resident Physician. I agree with the documented findings, disposition and treatment plan as described except to the extent set forth below. Patient seen and examined in the emergency room with the resident and all labs and images reviewed. Patient has dyspnea and she has underlying cardiopulmonary disease, however based on the clinical presentation and the lab work, I feel this is primarily cardiac in origin with acute diastolic heart failure. It is less likely copd exacerbation, for that reason, would not recommend systemic steroid. Keep SPO2 about 88% and diuresis is important. Reviewed dedicated driver note in [facility] and apparently she is not a good candidate for full anticogulation for her A fib due to risk of falls. Patient in Jada RVR, but not very fast and using Digioxin due to borderline hypotension is reasonable. Will continue follow up and thanks for consultation.
[2016-12-29] MEDS ORDERED: Dextrose Gel 15 GM PO PRN ×2 (17:47)
[2016-12-29] MEDS ORDERED: D5% in Water 1,000 ML IVC PRN (17:47)
[2016-12-29] MEDS ORDERED: *HR* Dextrose 50 % in Water (Syg) 50 ML SYRINGE IVP PRN (17:47)
--- NOTE | 2016-12-29 17:52 | Internal Med History&Physical ---
Date of Encounter: 12/29/16 Time of Encounter: 16:00 Assessment and Plan (1) Acute respiratory failure with hypoxia Current visit: Yes Status: Acute Will admit the pt into Tele / Step down unit Her rasp failure seems to mostly due to volume overload with CHF exacerbation will cont aggressive diuresis cont duoneb and O2 try to wean her off the O2 as she tolerates Pulmonary consulted No signs of infection noticed.. no infiltrates on CXR - no need of abx now (2) Pulmonary edema Current visit: Yes Status: Acute Duet to CHF exacerbation cont close monitoring cont diuresis Qualifiers: Chronicity: acute Qualified Code(s): J81.0 - Acute pulmonary edema (3) Atrial fibrillation with RVR Current visit: Yes Status: Acute Triggered by CHF exacerbation / Volume overload / Pulm edema Since pt does have BP issues unable to start her on Cardizem IV so started her on Digoxin IV 250mcg bolus x 1 dose then cont 125mcg Q6hr x 2 doses Also resumed home med Cardizem 120mg and Metoprolol 12.5 bid for anticoagulation - I noticed pt is not taking any meds actively.. she is a noncompliance pt and poor historian unable to provide me any history However I did notice that in the past she was Xarelto at this point will start her Lovenox theraputic dose Card consulted (4) Diastolic heart failure Current visit: No Status: Acute reviewed 2 D Echo done recently showed normal LVEF, with diastolic dysfunction no need to repeat another 2 D Echo cont diuresis also cont Metoprolol, ASA and ACEI Spent 45 minutes on this pt's critical care Qualifiers: Heart failure chronicity: acute on chronic Qualified Code(s): I50.33 - Acute on chronic diastolic (congestive) heart failure (5) COPD exacerbation Current visit: Yes Status: Acute on IV steroids and Duoneb try to wean her off the O2 as she tolerates (6) Type 2 diabetes mellitus Current visit: No Status: Chronic resumed home meds also palced on ISS since she is on steroids now Qualifiers: Diabetes mellitus complication status: without complication Diabetes mellitus tank terminal gauger insulin use: without tank terminal gauger use Qualified Code(s): E11.9 - Type 2 diabetes mellitus without complications (7) DVT prophylaxis Current visit: No Status: Acute on Lovenox Internal Medicine - H&P: HPI Chief complaint: Shortness of breath Admitted From: Emergency Dept Plans for Post Hospital Care: Home History of present illness: Ms. Whitman is a 81 year old female with a past medical history of COPD, diastolic CHF, diabetes, hypertension, paroxysmal atrial fibrillation and prior stroke was present to the ER this morning complaining about progressive worsening shortness of breath since y/d. Patient states that yesterday she smokes 2 cigarettes after having not smoked for the past 20 days. This morning she then awoke having increase in her cough is productive with white sputum. She states that she has tried using her inhaler and nebulizer with little relief. She states that she had significant shortness of breath and was the worst that it has ever been. Patient denied any fever / chills. No hemoptysis. Denied any CP. Past Med Surg Social Fam HX - Past Medical History Medical history: asthma, atrial fibrillation, CHF, CVA, diabetes, hypertension, other Psychiatric history: no psych history - Past Surgical History Surgical History: hysterectomy, orthopedic, other, other - Social History Smoking Status: Current some day smoker Smokeless Tobacco Status: No Alcohol use: occasionally Drug use: none - Family History Grandmother Family Member Ethnicity: Non- Living Status: Hx Family Cardiac Disorders: Yes Hx Family Respiratory Disorders: No Hx Family Cancer: Yes Hx Family GI Disorders: No Hx Family Endocrine Disorder: Yes Hx Family Neuromuscular Disorders: No Hx Family Neurologic Disorders: No Hx Family HEENT Disorders: No Hx Family Autoimmune Disorders: No Internal Medicine - H&P: Meds Albuterol Sulfate [Albuterol Inhaler] 2 puff IH QID PRN 01/22/15 [History] Aspirin Enteric Coated [Aspirin EC] 81 mg PO DAILY 01/22/15 [History] Metformin [Glucophage] 500 mg PO HS 01/22/15 [History] Ranitidine HCl [Zantac] 300 mg PO DAILY 01/22/15 [History] Simvastatin [Zocor] 20 mg PO HS 01/22/15 [History] Cholecalciferol (Vitamin D3) [Vitamin D3] 5,000 unit PO DAILY 07/26/15 [History] Ibuprofen [Motrin] 400 mg PO TID PRN 07/26/15 [History] rOPINIRole [Requip] 1 mg PO HS 07/26/15 [History] Umeclidinium Brm/Vilanterol Tr [Anoro Ellipta 62.5-25 Mcg INH] 1 puff IH DAILY 12/04/16 [History] Hydrocortisone [Cortef] 5 mg PO BID #60 tablet 12/08/16 [Rx] Metoprolol [Lopressor] 12.5 mg PO BID #60 tablet 12/08/16 [Rx] Albuterol Neb [Proventil Neb] 2.5 mg IH BID PRN 12/29/16 [History] Chlorthalidone 25 mg PO QAM 12/29/16 [History] Diltiazem HCl [Diltiazem ER] 120 mg PO DAILY 12/29/16 [History] Furosemide [Lasix] 40 mg PO DAILY 12/29/16 [History] Lisinopril 2.5 mg PO BID 12/29/16 [History] Allergies No Known Allergies Allergy (Verified 12/29/16 13:35) All Systems PM: A 10-system review of systems was performed and is negative for pertinent findings except as documented above in the HPI. Review of systems: All the systems are reviewed everything is benign except the systems and symptoms I mentioned in the history of present illness - Constitutional Vitals: Temp Pulse Resp BP Pulse Ox 97.7 F 90 18 117/63 95 12/29/16 17:38 12/29/16 17:38 12/29/16 17:38 12/29/16 17:38 12/29/16 17:38 General appearance: Present: mild distress, A&O X 3 Exam: Patient is in mild respiratory distress however she is able to finish full sentence without having any pause - Head Head exam: Present: atraumatic, normal inspection - Neck Neck exam general surgery: Present: thyromegaly, supple. Absent: lymphadenopathy - Respiratory Respiratory exam: Present: decreased breath sounds, rales (basal rales), respiratory distress (mild), wheezes (diffuse), tachypnea. Absent: rhonchi - Cardiovascular Cardiovascular exam: Present: irregular rhythm, +S1 (irregular rhythm and rate) , +S2 - GI/Abdominal GI/Abdominal exam: Present: normal bowel sounds, soft. Absent: distended, guarding, rebound, rigid, tenderness - Extremities Exam Extremities exam: Present: pedal edema. Absent: calf tenderness, tenderness - Neurological Exam Neurological exam: Present: alert, oriented X3 - Psychiatric Psychiatric exam: Present: normal affect, normal mood Internal Med - H&P Results - Labs CBC & Chem 7: 12/29/16 12:54 12/29/16 12:54 - EKG Data -: EKG Interpreted by Myself (Afib with RVR - VR @ 118, No ST , T changes) - Diagnostic Studies Chest x-ray Status: image reviewed by me (Inc vacular congestion and pulmonary edema. cardimegaly. No infiltrates noticed)
[2016-12-29] MEDS ORDERED: Cefepime HCl 1,000 MG in D5% in Water (Mini-Bag+) 100 ML IVPB SCH (18:00)
[2016-12-29] MEDS: Diltiazem CD (24hr) 120 MG CAPSULE PO SCH (18:00)
[2016-12-29] MEDS ORDERED: Albuterol 2.5 MG/3 ML NEBULIZER IH PRN (18:11)
[2016-12-29] MEDS: MethylPREDNISolone 40 MG/ML VIAL IVP SCH (19:55)
[2016-12-29] MEDS: Budesonide/Formoterol 160/4.5 MDI IH SCH (20:26)
[2016-12-29] MEDS: Ipratropium/Albuterol Neb 3 ML IH SCH ×2 (20:26→22:58)
[2016-12-29] MEDS: rOPINIRole 1 MG TABLET PO SCH (21:16)
[2016-12-29] MEDS: Famotidine 20 MG TABLET PO SCH (21:17)
[2016-12-29] MEDS: Furosemide 20 MG/2 ML VIAL IVP SCH (21:17)
[2016-12-29] MEDS: *HR* Metformin 500 MG TABLET PO SCH (21:20)
[2016-12-29] MEDS ORDERED: *HR* Digoxin 0.5 MG/2 ML AMPUL IVP SCH (22:00)
[2016-12-29] MEDS: *HR* Enoxaparin 100 MG/ML SYRINGE SQ SCH (22:26)
[2016-12-30] MEDS: MethylPREDNISolone 40 MG/ML VIAL IVP SCH ×2 (01:42→05:41)
[2016-12-30] MEDS ORDERED: *HR* Digoxin 0.5 MG/2 ML AMPUL IVP SCH (03:30)
[2016-12-30] MEDS: Ipratropium/Albuterol Neb 3 ML IH SCH ×5 (03:40→20:04)
[2016-12-30] MEDS: *HR* Enoxaparin 100 MG/ML SYRINGE SQ SCH (05:42)
[2016-12-30 06:04] LABS: Basophils % 0.1 %; Hematocrit 31.7 % (35.3-44.9); Hemoglobin 10.1 g/dL (11.5-15.4); Immature Granulocytes % 1.1 % (0-4); Lymphocytes # 0.5 K/mcL (0.6-4.6); Lymphocytes % 6.3 %; Mean Corpuscular HGB Conc 31.9 g/dL (31.6-35.5); Mean Corpuscular Hemoglobin 26.1 pg (28.0-33.3); Mean Corpuscular Volume 81.9 fL (83.0-100.0); Mean Platelet Volume 9.9 fL (9.4-12.4); Monocytes # 0.1 K/mcL (0.0-1.3); Monocytes % 0.9 %; Neutrophils # 7.2 K/mcL (1.6-8.9); Platelet Count 187 K/mcL (140-400); Red Blood Count 3.87 M/mcL (3.82-4.97); Segmented Neutrophils % 91.6 %
[2016-12-30 06:23] LABS: Alanine Aminotransferase 18 Units/L (0-55); Albumin 3.2 g/dL (3.5-5.0); Albumin/Globulin Ratio 1.1 (1.1-2.2); Alkaline Phosphatase 58 Units/L (38-126); Aspartate Amino Transferase 14 Units/L (5-34); BUN/Creatinine Ratio 25 (6-26); Bilirubin,Total 0.9 mg/dL (0.2-1.2); Blood Urea Nitrogen 22 mg/dL (7-20); Carbon Dioxide 24 mEq/L (19-29); Chloride 103 mEq/L (98-109); Globulin 2.9 g/dL (2.4-3.5); Glucose 222 mg/dL (70-99); Magnesium 1.9 mg/dL (1.6-2.6); Osmolality,Calculated 292 (280-300); Potassium 3.6 mEq/L (3.5-4.5); Sodium 136 mEq/L (136-145); Total Protein 6.1 g/dL (6.0-8.3); eGFR For African Americans > 60 (> 60); eGFR For Non-African Americans > 60 (> 60)
[2016-12-30 06:40] LABS: Platelet Estimate Normal (Normal)
[2016-12-30] MEDS: Aspirin Enteric Coated 81 MG Tablet PO SCH (07:28)
[2016-12-30] MEDS: Cholecalciferol (D-3) 1,000 UNIT TABLET PO SCH (07:28)
[2016-12-30] MEDS: Diltiazem CD (24hr) 120 MG CAPSULE PO SCH (07:28)
[2016-12-30] MEDS: Famotidine 20 MG TABLET PO SCH ×2 (07:28→07:29)
[2016-12-30] MEDS: Furosemide 20 MG/2 ML VIAL IVP SCH ×2 (07:28→20:05)
[2016-12-30] MEDS: Insulin LISPRO 300 UNITS/3 ML VIAL SQ SCH ×3 (07:32→16:52)
[2016-12-30] MEDS: Budesonide/Formoterol 160/4.5 MDI IH SCH ×2 (08:00→20:04)
--- NOTE | 2016-12-30 08:03 | Pulmonology Progress Note ---
Date of Encounter: 12/30/16 Time of Encounter: 07:55 Assessment and Plan (1) COPD (chronic obstructive pulmonary disease) Current Visit: Yes Status: Chronic Discussed with primary team, I don't feel this is COPD exacerbation and can stop systemic steroid. Please call for any questions and will follow up PRN. Patient can follow up as outpatient. Qualifiers: COPD type: unspecified COPD Qualified Code(s): J44.9 - Chronic obstructive pulmonary disease, unspecified (2) Diastolic heart failure Current Visit: No Status: Resolved This is much better with diuresis. Edema has improved and patient on room air now with SPO2 around 96%. Qualifiers: Heart failure chronicity: acute on chronic Qualified Code(s): I50.33 - Acute on chronic diastolic (congestive) heart failure (3) Atrial fibrillation Current Visit: No Status: Chronic Patient is not candidate for anticoagulation based on jigmaker note form outpatient due to risk of falls. Qualifiers: Atrial fibrillation type: unspecified Qualified Code(s): I48.91 - Unspecified atrial fibrillation Subjective Principal diagnosis: Dyspnea Interval history: Patient is feeling much better now. Objective PUL Vital signs: Last Vital Signs Temp 97.6 F 12/30/16 07:13 Pulse 88 12/30/16 07:40 Resp 18 12/30/16 07:13 BP 100/46 12/30/16 07:13 Pulse Ox 96 12/30/16 07:13 General appearance: no acute distress Eyes: nonicteric ENT: oropharynx moist Neck: supple Effort: normal Auscultation: bilateral: rales (bases, but improved) Percussion: bilateral: not dull Cardiovascular: irregular rhythm Gastrointestinal: normoactive bowel sounds Extremities: no cyanosis, edema normal mental status, non-focal exam mood appropriate Results - Laboratory Findings CBC and BMP: 12/30/16 05:39 12/30/16 05:39 Abnormal lab findings: Abnormal lab results Hgb 10.1 g/dL (11.5-15.4) L 12/30/16 05:39 Hct 31.7 % (35.3-44.9) L 12/30/16 05:39 MCV 81.9 fL (83.0-100.0) L 12/30/16 05:39 MCH 26.1 pg (28.0-33.3) L 12/30/16 05:39 RDW 15.0 % (11.5-14.5) H 12/30/16 05:39 Lymphocytes # 0.5 K/mcL (0.6-4.6) L 12/30/16 05:39 BUN 22 mg/dL (7-20) H 12/30/16 05:39 Glucose 222 mg/dL (70-99) H 12/30/16 05:39 POC Glucose 144 (58-89) H 12/29/16 20:19 B-Natriuretic Peptide 296 pg/mL (0-100) H 12/29/16 12:54 Albumin 3.2 g/dL (3.5-5.0) L 12/30/16 05:39 - Clinical Findings Intake & Output: Intake & Output 12/29/16 12/30/16 12/30/16 23:59 07:59 15:59 Intake Total 0 / 0 400 / 400 Output Total 1560 / 1560 300 / 300 Balance -1560 / -1560 100 / 100 Weight 93.8 kg 93.2 kg Consult Discharge Plan - Plan Referrals: Mili Rome, [facility] [Primary Care Provider] -
--- NOTE | 2016-12-30 08:33 | Internal Med Progress Note ---
Date of Encounter: 12/30/16 Time of Encounter: 08:30 - Assessment and plan (1) Acute respiratory failure with hypoxia Current Visit: Yes Status: Acute Assessment and plan: Her rasp failure seems to mostly due to volume overload with CHF exacerbation will cont aggressive diuresis cont duoneb and O2 try to wean her off the O2 as she tolerates Pulmonary is on borad No signs of infection noticed.. no infiltrates on CXR - no need of abx now Reviewed f/u CXR - improving vascular congestion (2) Pulmonary edema Current Visit: Yes Status: Acute Assessment and plan: Improving Duet to CHF exacerbation cont close monitoring cont diuresis strict I & O Qualifiers: Chronicity: acute Qualified Code(s): J81.0 - Acute pulmonary edema (3) Atrial fibrillation with RVR Current Visit: Yes Status: Acute Assessment and plan: Triggered by CHF exacerbation / Volume overload / Pulm edema Now rate controlled with PO Meds Metoprolol , Cardizem and Digoxin will switch to PO digoxin today Reviewed previous cardiology notes, since pt has multiple falls and high risk for intra cranial bleeding, discontinued her anticoag in the past and recommend ASA only. So will cont ASA and d/c anti coag (4) Diastolic heart failure Current Visit: No Status: Resolved Assessment and plan: reviewed 2 D Echo done recently showed normal LVEF, with diastolic dysfunction no need to repeat another 2 D Echo cont diuresis had -1550 negative balance so far in 24hrs also cont Metoprolol, ASA and ACEI Qualifiers: Heart failure chronicity: acute on chronic Qualified Code(s): I50.33 - Acute on chronic diastolic (congestive) heart failure (5) COPD exacerbation Current Visit: Yes Status: Acute Assessment and plan: it looks more like CHF exacerbation will d/c systemic steroids cont duoneb and INH (6) Type 2 diabetes mellitus Current Visit: No Status: Chronic Assessment and plan: resumed home meds on ISS too Qualifiers: Diabetes mellitus complication status: without complication Diabetes mellitus usp insulin use: without customer operations manager use Qualified Code(s): E11.9 - Type 2 diabetes mellitus without complications (7) DVT prophylaxis Current Visit: No Status: Acute Assessment and plan: on Lovenox (8) Physical deconditioning Current Visit: Yes Status: Acute Assessment and plan: pt / ot eval (9) Risk and functional assessment Current Visit: Yes Status: Acute Assessment and plan: still high risk fro cardiac and respiratory compromise cont current care - Subjective Interval history: Ms. Whitman is a 81 year old female with a past medical history of COPD, diastolic CHF, diabetes, hypertension, paroxysmal atrial fibrillation and prior stroke was present to the ER this morning complaining about progressive worsening shortness of breath one day prior to admission. Pt was started on IV lasix, she stated she is feeling better now. Still has some CHANDLER. Patient denied any fever / chills. No hemoptysis. Denied any CP. - Constitutional Vitals: Temp Pulse Resp BP Pulse Ox 97.6 F 88 18 100/46 96 12/30/16 07:13 12/30/16 07:40 12/30/16 08:02 12/30/16 07:13 12/30/16 08:02 General appearance: Present: A&O X 3 - Head Head exam: Present: atraumatic, normal inspection - Respiratory Respiratory exam: Present: decreased breath sounds, rales, wheezes. Absent: respiratory distress, rhonchi - Cardiovascular Cardiovascular exam: Present: irregular rhythm (irregular rate and rhythm), +S1 , +S2. Absent: systolic murmur - GI/Abdominal GI/Abdominal exam: Present: normal bowel sounds, soft. Absent: rebound, rigid, tenderness - Extremities Exam Extremities exam: Present: pedal edema (2 + pitting edema). Absent: calf tenderness, tenderness - Psychiatric Psychiatric exam: Present: normal affect, normal mood Internal Medicine: Result - Labs CBC & Chem 7: 12/30/16 05:39 12/30/16 05:39 Labs: Short CBC 12/30/16 Range/Units 05:39 WBC 7.9 (4.3-11.1) K/mcL Hgb 10.1 L (11.5-15.4) g/dL Hct 31.7 L (35.3-44.9) % Plt Count 187 (140-400) K/mcL Neutrophils # 7.2 (1.6-8.9) K/mcL BMP 12/30/16 05:39 Sodium 136 Potassium 3.6 Chloride 103 Carbon Dioxide 24 BUN 22 H Creatinine 0.87 Glucose 222 H Calcium 9.0 Cardiac Enzymes 12/29/16 12/30/16 Range/Units 19:08 01:01 Troponin I 0.00 0.00 (0-0.03) ng/mL Liver Function 12/30/16 Range/Units 05:39 Total Bilirubin 0.9 (0.2-1.2) mg/dL AST 14 (5-34) Units/L ALT 18 (0-55) Units/L Alkaline Phosphatase 58 (38-126) Units/L Albumin 3.2 L (3.5-5.0) g/dL - Impressions Impressions Chest X-Ray 12/30/16 08:00 IMPRESSION: Unchanged chest. D/ / 12/30/2016 07:49:07 Doni Mays MD / [email or web address] isela Interpreting Provider: Doni Mays MD - Diagnostic Studies Chest x-ray Status: image reviewed by me (Improving vascular congestion. No infiltrates / no consolidations noticed) Consult Discharge Plan - Plan Referrals: Mili Rome, [employer] SCI[employer] TEACHER [Primary Care Provider] -
--- NOTE | 2016-12-30 10:40 | Cardiology Consult Note ---
Date of Encounter: 12/30/16 Time of Encounter: 09:00 Assessment and Plan (1) Atrial fibrillation Current Visit: Yes Status: Acute Hx of PAF. Patient presented in atrial fibrillation with RVR in the setting of acute respiratory distress. Upon review, patient recently hospitalized in November and was in atrial fibrillation throughout hospitalization. Now rate controlled, avg HR=86 overnight. Recommend rate control strategy with oral CCB, continue cardizem 120 mg daily. EF preserved per most recent TTE, 12/05/16. Has been anticoagulated on Xarelto in the past, however patient stopped taking > 1 year ago. Has been on asa only for CVA prevention due to frequent falls and forgetfulness. She is aware of increased risk for CVA with only taking ASA. No further recommendations, follow-up in the outpatient setting. Qualifiers: Atrial fibrillation type: paroxysmal Qualified Code(s): I48.0 - Paroxysmal atrial fibrillation (2) Acute respiratory failure with hypoxia Current Visit: Yes Status: Acute Suspect secondary to COPD exacerbation. No significant fluid overload per CXR, BNP mildly elevated. Mgmt per Internal med and Pulm. (3) Diastolic heart failure Current Visit: Yes Status: Chronic Hx of chronic diastolic CHF. Mild volume overload upon exam. CXR: no overt pulm edema. Minimal BNP elevation, 130. TTE 12/05/16: EF 60-65% Patient reports LE edema at baseline. She states she is no longer on po maintenance lasix as home. Recommend low dose lasix at home and close outpatient follow-up with Cardiology/ PCP. CHF teaching discussing including Na/Fluid restriction diet. Qualifiers: Heart failure chronicity: chronic Qualified Code(s): I50.32 - Chronic diastolic (congestive) heart failure Discussion w patient/family: The assessment and plan as outlined above was discussed with the patient and/or family members who expressed understanding and agreement. All questions were answered. Thank you for involving us in the care of your patient. Please call with any questions. The patient will be discussed and reviewed with Dr. Ant Cobos; changes to be made accordingly. History of Present Illness Consult date: 12/30/16 Requesting physician: Josie Pedroza Consult reason: Afib with RVR Chief complaint: Shortness of breath History of present illness: Ms. Whitman is a 81 year old female with PMHx significant for chronic diastolic CHF, PAF, HTN, COPD, DMII, and tobacco use who presented to the ED with 2 day history of worsening shortness of breath. She reports she woke up 2 days ago with increased shortness of breath, and increased coughing--patient attributes to COPD. Associated symptoms include chills, "shakes," and productive cough-- yellow/white phlegm. Patient had quit smoking for 20 days, she then smoked x2 cigarettes which somewhat improved symptoms. Symptoms were worse then next morning which prompted ED evaluation. Upon arrival to ED she was found to be in atrial fibrillation with RVR. Patient reports LE edema has actually improved from baseline. Reports compliance with CHF guidelines including 2L fluid restriction diet at home. Prior CV testing: Nuclear stress 08/27/10: LVEF 66%, negative for ischemia or infarction TTE 06/21/14: LVEF 60%, mild diastolic dysfunction, moderate biatrial enlargement, mild AR, mild MR, mild TR, RVSP 40 LE arterial study 06/21/14: normal CUS 06/21/14: minimal plaque bilaterally TTE 12/26/14: LVEF 60-65%, moderate diastolic dysfunction, severely dilated LA , mild AR, mild MR, normal RVSP. TTE 12/05/16: Normal LV systolic function, LVEF 60-65%, Indeterminate diastolic function due to atrial fibrillation, Normal right ventricular size and function, Severely dilated left atrium, Moderately dilated right atrium, Mild aortic regurgitation, All wall segments showed normal motion. Past Med Surg Social Fam HX - Past Medical History Attestation: Yes The following information was validated with the patient. Source: patient Medical history: asthma, atrial fibrillation, CHF (chronic, diastolic), CVA, diabetes, hypertension Psychiatric history: no psych history - Past Surgical History Surgical History: hysterectomy, orthopedic, other - Social History Smoking Status: Current some day smoker Smokeless Tobacco Status: No Alcohol use: occasionally Drug use: none - Family History Grandmother Family Member Ethnicity: Non- Living Status: Hx Family Cardiac Disorders: Yes Hx Family Respiratory Disorders: No Hx Family Cancer: Yes Hx Family GI Disorders: No Hx Family Endocrine Disorder: Yes Hx Family Neuromuscular Disorders: No Hx Family Neurologic Disorders: No Hx Family HEENT Disorders: No Hx Family Autoimmune Disorders: No Medications and Allergies Albuterol Sulfate [Albuterol Inhaler] 2 puff IH QID PRN 01/22/15 [History] Aspirin Enteric Coated [Aspirin EC] 81 mg PO DAILY 01/22/15 [History] Metformin [Glucophage] 500 mg PO HS 01/22/15 [History] Ranitidine HCl [Zantac] 300 mg PO DAILY 01/22/15 [History] Simvastatin [Zocor] 20 mg PO HS 01/22/15 [History] Cholecalciferol (Vitamin D3) [Vitamin D3] 5,000 unit PO DAILY 07/26/15 [History] Ibuprofen [Motrin] 400 mg PO TID PRN 07/26/15 [History] rOPINIRole [Requip] 1 mg PO HS 07/26/15 [History] Umeclidinium Brm/Vilanterol Tr [Anoro Ellipta 62.5-25 Mcg INH] 1 puff IH DAILY 12/04/16 [History] Hydrocortisone [Cortef] 5 mg PO BID #60 tablet 12/08/16 [Rx] Metoprolol [Lopressor] 12.5 mg PO BID #60 tablet 12/08/16 [Rx] Albuterol Neb [Proventil Neb] 2.5 mg IH BID PRN 12/29/16 [History] Chlorthalidone 25 mg PO QAM 12/29/16 [History] Diltiazem HCl [Diltiazem ER] 120 mg PO DAILY 12/29/16 [History] Furosemide [Lasix] 40 mg PO DAILY 12/29/16 [History] Lisinopril 2.5 mg PO BID 12/29/16 [History] Allergies No Known Allergies Allergy (Verified 12/29/16 13:35) All Systems Review: A 10-system review of systems was performed and is negative for pertinent findings except as documented above in the HPI. - Cardiovascular Cardiovascular: as per HPI Physical Examination Vital Signs, Last 4 Hours Temp Pulse Resp BP Pulse Ox 12/30/16 08:02 18 96 12/30/16 07:40 88 12/30/16 07:13 97.6 F 87 18 100/46 96 General: Conversant, No Apparent Distress HEENT: Atraumatic, Normocephaly, Mucus Membranes Moist Cardiac: Other (irregularly irregular) Lungs: Normal Breath Sounds Neuro: Alert and responsive Abdomen: Soft Skin: No rashes noted on visualized skin Musculoskeletal: No Chest Wall Tenderness Extremities: Other (+2-3 BLE edema. ) Results 12/30/16 05:39 12/30/16 05:39 Lab Results 12/29/16 12/30/16 12/30/16 19:08 01:01 05:39 WBC 7.9 Hgb 10.1 L Hct 31.7 L Plt Count 187 Sodium Potassium Chloride Carbon Dioxide BUN Creatinine Glucose Calcium Magnesium Total Bilirubin AST ALT Alkaline Phosphatase Troponin I 0.00 0.00 B-Natriuretic Peptide 12/30/16 12/30/16 12/30/16 05:39 05:39 07:49 WBC Hgb Hct Plt Count Sodium 136 Potassium 3.6 Chloride 103 Carbon Dioxide 24 BUN 22 H Creatinine 0.87 Glucose 222 H Calcium 9.0 Magnesium 1.9 Total Bilirubin 0.9 AST 14 ALT 18 Alkaline Phosphatase 58 Troponin I 0.00 B-Natriuretic Peptide 130 H Active Medications Acetaminophen (Tylenol) 650 mg PO Q6HR PRN PRN Reason: Mild Pain (1-3) Stop: 06/30/17 15:45 Hydrocodone Bitart/Acetaminophen ([place] 5-325 Mg) 1 tab PO Q4HR PRN PRN Reason: Moderate Pain (4-6) Stop: 06/30/17 15:45 Albuterol Sulfate (Proventil Neb) 2.5 mg IH Q3UWNHT PRN; Protocol PRN Reason: Shortness Of Breath/Wheezing Stop: 06/30/17 18:12 Albuterol/Ipratropium (Duoneb) 3 ml IH [id number] [facility] Stop: 06/30/17 20:01 Last Admin: 12/30/16 08:00 Dose: 3 ml Aspirin (Aspirin Ec) 81 mg PO DAILY [facility] Stop: 07/01/17 09:01 Last Admin: 12/30/16 07:28 Dose: 81 mg Budesonide/Formoterol Fumarate (Symbicort) 2 puff IH BIDR [facility] PRN Reason: Protocol Stop: 06/30/17 22:01 Last Admin: 12/30/16 08:00 Dose: 2 puff Dextrose/Water (Dextrose 50% (Syg)) 25 ml IVP AD PRN PRN Reason: Hypoglycemia Stop: 06/30/17 17:48 Diltiazem HCl (Cardizem Cd) 120 mg PO DAILY [facility] Stop: 06/30/17 17:46 Last Admin: 12/30/16 07:28 Dose: 120 mg Docusate Sodium (Colace) 100 mg PO BID PRN PRN Reason: Constipation Stop: 06/30/17 15:45 Famotidine (Pepcid) 20 mg PO BID [facility] Stop: 06/30/17 21:01 Last Admin: 12/30/16 07:28 Dose: 20 mg Famotidine (Pepcid) 20 mg PO DAILY [facility] Stop: 07/01/17 09:01 Last Admin: 12/30/16 07:29 Dose: Not Given Furosemide (Lasix) 40 mg IVP BID [facility] Stop: 06/30/17 21:01 Last Admin: 12/30/16 07:28 Dose: 40 mg Glucagon (Glucagen) 1 mg IM ONCE PRN PRN Reason: Hypoglycemia Stop: 06/30/17 17:48 Glucose (Gluctose) 15 gm PO ONCE PRN PRN Reason: Hypoglycemia Stop: 06/30/17 17:48 Glucose (Gluctose) 30 gm PO ONCE PRN PRN Reason: Hypoglycemia Stop: 06/30/17 17:48 Dextrose (Dextrose 5%) 1,000 mls @ 100 mls/hr IVC .Q10H PRN PRN Reason: HYPOGLYCEMIA Stop: 06/30/17 17:48 Insulin Human Lispro (Humalog) 0 units SQ TIDAC [facility] PRN Reason: Protocol Stop: 07/01/17 07:31 Last Admin: 12/30/16 07:32 Dose: 8 units Lisinopril (Zestril) 2.5 mg PO BID [facility] Stop: 06/30/17 21:01 Last Admin: 12/30/16 07:28 Dose: 2.5 mg Metformin HCl (Glucophage) 500 mg PO [facility] PRN Reason: Protocol Stop: 06/30/17 21:01 Last Admin: 12/29/16 21:20 Dose: 500 mg Metoprolol Tartrate (Lopressor) 12.5 mg PO BID [facility] Stop: 06/30/17 21:01 Last Admin: 12/30/16 07:28 Dose: 12.5 mg Morphine Sulfate (Morphine Sulfate) 2 mg IVP Q4HR PRN PRN Reason: Severe Pain (7-10) Stop: 06/30/17 15:45 Naloxone HCl (Narcan) 0.4 mg IVP Q2MIN PRN PRN Reason: Opioid Reversal Stop: 06/30/17 15:45 Ondansetron HCl (Zofran) 4 mg IVP Q8HR PRN PRN Reason: Nausea And Vomiting Stop: 06/30/17 15:45 Ondansetron HCl (Zofran Odt) 4 mg SL Q8HR PRN PRN Reason: Nausea And Vomiting Stop: 06/30/17 15:45 Ropinirole HCl (Requip) 1 mg PO HS [facility] Stop: 06/30/17 21:01 Last Admin: 12/29/16 21:16 Dose: 1 mg Simvastatin (Zocor) 20 mg PO HS [facility] PRN Reason: Protocol Stop: 06/30/17 21:01 Last Admin: 12/29/16 21:20 Dose: 20 mg Vitamin D (Vitamin D) 1,000 unit PO DAILY [facility] Stop: 07/01/17 09:01 Last Admin: 12/30/16 07:28 Dose: 1,000 unit - Imaging and Cardiology Stress Test: report reviewed Echo: report reviewed Other Results: 12 hour tele: avg HR=86 Afib. - EKG Interpretation EKG results cardiology: personally reviewed Consult Discharge Plan - Plan Referrals: Mili Rome, ENTRY LEVEL RECEPTIONIST [Primary Care Provider] -
--- NOTE | 2016-12-30 16:34 | Electrocardiograph Report ---
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
[2016-12-30] MEDS: rOPINIRole 1 MG TABLET PO SCH (20:04)
[2016-12-30] MEDS: *HR* Metformin 500 MG TABLET PO SCH (20:05)
[2016-12-31] MEDS: Ipratropium/Albuterol Neb 3 ML IH SCH ×7 (00:42→23:36)
[2016-12-31 04:33] LABS: Basophils % 0.2 %; Hemoglobin 10.1 g/dL (11.5-15.4); Lymphocytes % 5.7 %; Mean Corpuscular HGB Conc 32.6 g/dL (31.6-35.5); Mean Corpuscular Hemoglobin 26.4 pg (28.0-33.3); Mean Corpuscular Volume 81.2 fL (83.0-100.0); Mean Platelet Volume 9.8 fL (9.4-12.4); Monocytes # 0.8 K/mcL (0.0-1.3); Monocytes % 4.2 %; Neutrophils # 16.1 K/mcL (1.6-8.9); Platelet Count 221 K/mcL (140-400); Red Blood Count 3.82 M/mcL (3.82-4.97); Segmented Neutrophils % 88.9 %
[2016-12-31 04:46] LABS: BUN/Creatinine Ratio 32 (6-26); Blood Urea Nitrogen 30 mg/dL (7-20); Calcium 9.1 mg/dL (8.6-10.8); Carbon Dioxide 27 mEq/L (19-29); Chloride 102 mEq/L (98-109); Glucose 171 mg/dL (70-99); Osmolality,Calculated 296 (280-300); Potassium 3.8 mEq/L (3.5-4.5); Sodium 138 mEq/L (136-145); eGFR For African Americans > 60 (> 60); eGFR For Non-African Americans 58 (> 60)
[2016-12-31] MEDS: Budesonide/Formoterol 160/4.5 MDI IH SCH ×2 (08:03→20:19)
[2016-12-31] MEDS: Insulin LISPRO 300 UNITS/3 ML VIAL SQ SCH ×3 (08:07→16:37)
[2016-12-31] MEDS: Cholecalciferol (D-3) 1,000 UNIT TABLET PO SCH (08:28)
[2016-12-31] MEDS: Aspirin Enteric Coated 81 MG Tablet PO SCH (08:28)
[2016-12-31] MEDS: Diltiazem CD (24hr) 120 MG CAPSULE PO SCH (08:28)
[2016-12-31] MEDS: Famotidine 20 MG TABLET PO SCH (08:28)
[2016-12-31] MEDS: Furosemide 20 MG/2 ML VIAL IVP SCH (08:28)
--- NOTE | 2016-12-31 09:52 | Internal Med Progress Note ---
Date of Encounter: 12/31/16 Time of Encounter: 09:49 - Assessment and plan (1) Acute respiratory failure with hypoxia Current Visit: Yes Status: Acute Assessment and plan: Her resp failure seems to mostly due to volume overload with CHF exacerbation Improving will switch to PO Lasix today cont duoneb breathing comfortably on RA will do over nite pulse oxy study Pulmonary is on borad No signs of infection noticed.. no infiltrates on CXR - no need of abx now (2) Pulmonary edema Current Visit: Yes Status: Acute Assessment and plan: Improving Duet to CHF exacerbation cont close monitoring cont diuresis strict I & O Qualifiers: Chronicity: acute Qualified Code(s): J81.0 - Acute pulmonary edema (3) Atrial fibrillation with RVR Current Visit: Yes Status: Acute Assessment and plan: Triggered by CHF exacerbation / Volume overload / Pulm edema Her rate is still not well controlled -- fluctuating between 80-100 Card did not recommend digoxin Cont PO Meds Metoprolol and Cardizem Reviewed previous cardiology notes, since pt has multiple falls and high risk for intra cranial bleeding, discontinued her anticoag in the past and recommend ASA only. So will cont ASA (4) Diastolic heart failure Current Visit: Yes Status: Chronic Assessment and plan: reviewed 2 D Echo done recently showed normal LVEF, with diastolic dysfunction no need to repeat another 2 D Echo cont diuresis had -1600 CC urine out put y/d cont Metoprolol, ASA and ACEI Qualifiers: Heart failure chronicity: chronic Qualified Code(s): I50.32 - Chronic diastolic (congestive) heart failure (5) COPD exacerbation Current Visit: Yes Status: Acute Assessment and plan: it looks more like CHF exacerbation will d/c systemic steroids cont duoneb and INH steroids (6) Type 2 diabetes mellitus Current Visit: No Status: Chronic Assessment and plan: resumed home meds on ISS too Qualifiers: Diabetes mellitus complication status: without complication Diabetes mellitus nursing home insulin use: without buttermaker continuous churn use Qualified Code(s): E11.9 - Type 2 diabetes mellitus without complications (7) Adrenal insufficiency Current Visit: No Status: Acute Assessment and plan: reviewed pt's cortisol level from last hospitalization - Cortisol 15.1 @ 6.00 AM and 23.4 at 7.00 PM it is highly unlikely adrenal insufficiency however since pt was on steroids for 2 week, will taper them down slowly will talk to PCP also about this (8) Physical deconditioning Current Visit: Yes Status: Acute Assessment and plan: pt / ot eval (9) Risk and functional assessment Current Visit: Yes Status: Acute Assessment and plan: still high risk fro cardiac and respiratory compromise cont current care (10) DVT prophylaxis Current Visit: No Status: Acute Assessment and plan: on Lovenox - Subjective Interval history: Ms. Whitman is a 81 year old female with a past medical history of COPD, diastolic CHF, diabetes, hypertension, paroxysmal atrial fibrillation and prior stroke was present to the ER this morning complaining about progressive worsening shortness of breath one day prior to admission. Pt was started on IV lasix, she stated she is feeling better now. Still has some CHANDLER. Patient denied any fever / chills. No hemoptysis. Denied any CP. - Constitutional Vitals: Temp Pulse Resp BP Pulse Ox 97.6 F 93 16 92/53 96 12/31/16 07:31 12/31/16 07:31 12/31/16 08:03 12/31/16 07:31 12/31/16 08:03 General appearance: Present: A&O X 3 - Head Head exam: Present: atraumatic, normal inspection - Respiratory Respiratory exam: Present: decreased breath sounds, rales (mild), wheezes. Absent: respiratory distress, rhonchi - Cardiovascular Cardiovascular exam: Present: irregular rhythm, +S1, +S2. Absent: gallop, systolic murmur - GI/Abdominal GI/Abdominal exam: Present: normal bowel sounds, soft. Absent: rebound, rigid, tenderness - Extremities Exam Extremities exam: Present: pedal edema (1+). Absent: calf tenderness, tenderness - Neurological Exam Neurological exam: Present: alert, oriented X3 - Psychiatric Psychiatric exam: Present: normal affect, normal mood Internal Medicine: Result - Labs CBC & Chem 7: 12/31/16 03:56 12/31/16 03:56 Labs: Short CBC 12/31/16 Range/Units 03:56 WBC 18.1 H D (4.3-11.1) K/mcL Hgb 10.1 L (11.5-15.4) g/dL Hct 31.0 L (35.3-44.9) % Plt Count 221 (140-400) K/mcL Neutrophils # 16.1 H (1.6-8.9) K/mcL BMP 12/31/16 03:56 Sodium 138 Potassium 3.8 Chloride 102 Carbon Dioxide 27 BUN 30 H Creatinine 0.93 Glucose 171 H Calcium 9.1 Consult Discharge Plan - Plan Referrals: Mili Rome CNP [Primary Care Provider] - 01/07/17 10:00 am
[2016-12-31] MEDS: predniSONE 20 MG TABLET PO SCH (11:14)
[2016-12-31] MEDS: Furosemide 20 MG TABLET PO SCH (17:13)
[2016-12-31] MEDS: rOPINIRole 1 MG TABLET PO SCH (21:51)
[2016-12-31] MEDS: *HR* Metformin 500 MG TABLET PO SCH (21:51)
[2017-01-01] MEDS: Ipratropium/Albuterol Neb 3 ML IH SCH ×3 (05:10→11:17)
[2017-01-01 05:31] LABS: Basophils % 0.1 %; Hematocrit 32.3 % (35.3-44.9); Hemoglobin 10.4 g/dL (11.5-15.4); Immature Granulocytes % 1.7 % (0-4); Lymphocytes # 1.2 K/mcL (0.6-4.6); Lymphocytes % 8.5 %; Mean Corpuscular HGB Conc 32.2 g/dL (31.6-35.5); Mean Corpuscular Hemoglobin 26.4 pg (28.0-33.3); Mean Platelet Volume 9.6 fL (9.4-12.4); Monocytes # 0.5 K/mcL (0.0-1.3); Monocytes % 3.8 %; Neutrophils # 11.9 K/mcL (1.6-8.9); Platelet Count 251 K/mcL (140-400); Red Blood Count 3.94 M/mcL (3.82-4.97); Red Cell Distribution Width 15.2 % (11.5-14.5); Segmented Neutrophils % 85.9 %
[2017-01-01 05:43] LABS: BUN/Creatinine Ratio 33 (6-26); Blood Urea Nitrogen 28 mg/dL (7-20); Calcium 8.9 mg/dL (8.6-10.8); Carbon Dioxide 29 mEq/L (19-29); Chloride 103 mEq/L (98-109); Glucose 102 mg/dL (70-99); Osmolality,Calculated 294 (280-300); Potassium 4.1 mEq/L (3.5-4.5); Sodium 139 mEq/L (136-145); eGFR For African Americans > 60 (> 60); eGFR For Non-African Americans > 60 (> 60)
[2017-01-01] MEDS: Budesonide/Formoterol 160/4.5 MDI IH SCH (07:45)
[2017-01-01] MEDS: Insulin LISPRO 300 UNITS/3 ML VIAL SQ SCH ×2 (08:43→11:38)
[2017-01-01] MEDS: Furosemide 20 MG TABLET PO SCH (08:44)
[2017-01-01] MEDS: Cholecalciferol (D-3) 1,000 UNIT TABLET PO SCH (08:44)
[2017-01-01] MEDS: predniSONE 20 MG TABLET PO SCH (08:44)
[2017-01-01] MEDS: Famotidine 20 MG TABLET PO SCH (08:45)
[2017-01-01] MEDS: Aspirin Enteric Coated 81 MG Tablet PO SCH (08:45)
[2017-01-01] MEDS: Diltiazem CD (24hr) 120 MG CAPSULE PO SCH (08:45)
[2017-01-01 11:20] VITALS: BP 113/56
--- NOTE | 2017-01-01 12:55 | Discharge Summary ---
Date of Encounter: 01/01/17 Time of Encounter: 12:52 - Discharge Diagnosis (1) Acute respiratory failure with hypoxia Priority: Primary Status: Acute (2) Pulmonary edema Priority: Primary Status: Acute Qualifiers: Chronicity: acute Qualified Code(s): J81.0 - Acute pulmonary edema (3) Atrial fibrillation with RVR Priority: Secondary Status: Acute (4) Diastolic heart failure Priority: Primary Status: Chronic Qualifiers: Heart failure chronicity: chronic Qualified Code(s): I50.32 - Chronic diastolic (congestive) heart failure (5) COPD exacerbation Priority: Secondary Status: Acute (6) Type 2 diabetes mellitus Priority: Secondary Status: Chronic Qualifiers: Diabetes mellitus complication status: without complication Diabetes mellitus termite control technician insulin use: without detention use Qualified Code(s): E11.9 - Type 2 diabetes mellitus without complications (7) Physical deconditioning Priority: Secondary Status: Acute (8) Risk and functional assessment Priority: Secondary Status: Acute - Discharge Medications Prescriptions: Budesonide/Formoterol 160/4.5 [Symbicort 160/4.5] 2 puff IH BIDR #1 Furosemide [Lasix] 20 mg PO BIDDIURETIC #60 tab predniSONE [PredniSONE] 20 mg PO DAILY #10 tablet Home Medications: Albuterol Sulfate [Albuterol Inhaler] 2 puff IH QID PRN 01/22/15 [History] Aspirin Enteric Coated [Aspirin EC] 81 mg PO DAILY 01/22/15 [History] Metformin [Glucophage] 500 mg PO HS 01/22/15 [History] Ranitidine HCl [Zantac] 300 mg PO DAILY 01/22/15 [History] Simvastatin [Zocor] 20 mg PO HS 01/22/15 [History] Cholecalciferol (Vitamin D3) [Vitamin D3] 5,000 unit PO DAILY 07/26/15 [History] rOPINIRole [Requip] 1 mg PO HS 07/26/15 [History] Diltiazem HCl [Diltiazem ER] 120 mg PO DAILY 12/29/16 [History] Lisinopril 2.5 mg PO BID 12/29/16 [History] Albuterol Neb [Proventil Neb] 2.5 mg IH Q6H PRN #0 01/01/17 [Rx] Budesonide/Formoterol 160/4.5 [Symbicort 160/4.5] 2 puff IH BIDR #1 01/01/17 [ Rx] Furosemide [Lasix] 20 mg PO BIDDIURETIC #60 tab 01/01/17 [Rx] Metoprolol [Lopressor] 25 mg PO BID #60 tablet 01/01/17 [Rx] predniSONE [PredniSONE] 20 mg PO DAILY #10 tablet 01/01/17 [Rx] Allergies/Adverse Reactions: Allergies No Known Allergies Allergy (Verified 12/29/16 13:35) Date of admission: 12/29/16 16:56 Primary care physician: Mili Rome CNP Consults: 12/29/16 17:41 Consult to Cardiology [CONS] Routine Comment: Consulting Provider: Cardiology Crissy Reason for Consult: Acute Afib with RVR Call Completed: Yes Consult to Pulmonology [CONS] Routine Consulting Provider: Pulm Crit Care [facility] Sleep Crissy Reason for Consult: Acute respiratory failure with pulmonary edema Call Completed: Yes - Patient Status Disposition: Home Health Service Condition: Fair Overall status at discharge: patient is back to baseline - Discharge Instructions Follow Up With: Mili Rome CNP [Primary Care Provider] - 01/07/17 10:00 am Ant Cobos MD [Partnered Physician] - Additional Instructions: Need t f/u with PCP in one week need to f/u with Cardiology in 1 week - Diet and Activity Activity: increase activity as tolerated Diet: low salt diet Hospital course: Ms. Whitman is a 81 year old female with a past medical history of COPD, diastolic CHF, diabetes, hypertension, paroxysmal atrial fibrillation and prior stroke was present to the ER on 12/29/16 complaining about progressive worsening shortness of breath one day prior to admission. Pt was admitted in the hospital for Acute hypoxic respiratory failure acute CHF exacerbation and acute pulmonary edema. Pt was admitted in the hospital and started her on aggressive IV diuresis, her SOB started improving. She is off the since y/d and breathing comfortably on RA. She was in Atrial fibrillation with RVR initially due to respiratory failure with CHF exacerbation. Pt was given digoxin initially , [facility] evaluated the pt and recommend to titrate Metoprolol and Cardizem only. So digoxin was stopped and continued on Metoprolol and Cardizem. Now her HR is well controlled. Regarding anticoagulation reich since pt was high risk fro fall, it was recommended to use ASA only. Pt was diagnosed with adrenal insufficiency on her last hospitalization and sent her home on Hydrocortisone 5mg BID,. I did review her Cortisol levels, they seem to be OK, it is high unlikely adrenal insufficiency and also due to pt's non compliance it is very risky to give her chronic steroids too. I started tapering her steroid doses slowly. All the instructions provided to pt and and discussed at bed side with her son. We did home O2 evaluation, her SPo2 was 94 on RA with ambulation. She does not require any O2 to go home. - Time Spent with Patient Total time spent providing and/or coordinating discharge services: Greater than 30 minutes (Spent 45 minutes on this patient's discharge summary due to complex medical problems and patient needed a lot of education regarding discharge instructions) - Constitutional Vitals: Temp Pulse Resp BP Pulse Ox 97.8 F 86 14 113/56 96 01/01/17 11:16 01/01/17 11:16 01/01/17 11:18 01/01/17 11:16 01/01/17 11:18 General appearance: Present: A&O X 3 - Head Head exam: Present: atraumatic, normal inspection - Neck Neck exam general surgery: Present: supple. Absent: lymphadenopathy - Respiratory Respiratory exam: Present: decreased breath sounds, wheezes. Absent: rales, respiratory distress, rhonchi - Cardiovascular Cardiovascular exam: Present: irregular rhythm, +S1, +S2. Absent: systolic murmur - GI/Abdominal GI/Abdominal exam: Present: normal bowel sounds, soft. Absent: rebound, rigid, tenderness - Extremities Exam Extremities exam: Present: pedal edema (improving). Absent: calf tenderness, tenderness - Psychiatric Psychiatric exam: Present: normal affect, normal mood
--- NOTE | 2017-01-01 13:05 | Physician Discharge Referral ---
Home Health/Hosp Referral Info Transfer to: Home Health Provider in Charge Post Discharge: PCP - Diagnosis (1) Acute respiratory failure with hypoxia Status: Acute (2) Pulmonary edema Status: Acute (3) Atrial fibrillation with RVR Status: Acute (4) Diastolic heart failure Status: Chronic (5) COPD exacerbation Status: Acute (6) Type 2 diabetes mellitus Status: Chronic (7) Physical deconditioning Status: Acute (8) Risk and functional assessment Status: Acute - Respiratory Orders Smoking Cessation: Smoking cessation has been advised. For more information, call the [place] Tobacco Quit Line at 0-496-IXRX-NOW. - Transfer Medications Prescriptions: Budesonide/Formoterol 160/4.5 [Symbicort 160/4.5] 2 puff IH BIDR #1 Furosemide [Lasix] 20 mg PO BIDDIURETIC #60 tab predniSONE [PredniSONE] 20 mg PO DAILY #10 tablet Home Medications: Albuterol Sulfate [Albuterol Inhaler] 2 puff IH QID PRN 01/22/15 [History] Aspirin Enteric Coated [Aspirin EC] 81 mg PO DAILY 01/22/15 [History] Metformin [Glucophage] 500 mg PO HS 01/22/15 [History] Ranitidine HCl [Zantac] 300 mg PO DAILY 01/22/15 [History] Simvastatin [Zocor] 20 mg PO HS 01/22/15 [History] Cholecalciferol (Vitamin D3) [Vitamin D3] 5,000 unit PO DAILY 07/26/15 [History] rOPINIRole [Requip] 1 mg PO HS 07/26/15 [History] Diltiazem HCl [Diltiazem ER] 120 mg PO DAILY 12/29/16 [History] Lisinopril 2.5 mg PO BID 12/29/16 [History] Albuterol Neb [Proventil Neb] 2.5 mg IH Q6H PRN #0 01/01/17 [Rx] Budesonide/Formoterol 160/4.5 [Symbicort 160/4.5] 2 puff IH BIDR #1 01/01/17 [ Rx] Furosemide [Lasix] 20 mg PO BIDDIURETIC #60 tab 01/01/17 [Rx] Metoprolol [Lopressor] 25 mg PO BID #60 tablet 01/01/17 [Rx] predniSONE [PredniSONE] 20 mg PO DAILY #10 tablet 01/01/17 [Rx] Allergies/Adverse Reactions: Allergies No Known Allergies Allergy (Verified 12/29/16 13:35) Certification: Further, I certify that my clinical findings support that this patient is homebound (i.e. absences from home require considerable and taxing effort and are for medical reasons or shinto services or infrequently or short duration when for other reasons) because: Homebound Reason: Patient requires assistance of a person or device to safely leave home Attestation: My signature below is to certify that this patient is under my care and that I, or nurse practitioner, or a physician's assistant technician working with me, has a face-to -face encounter with this patient.
== END 2017-01-01 13:58 | disposition home health service (06) | DRG 291 ==
LOC: EMEROO 12:20 → 2NNU 12:20
PROVIDERS: ADMIT Internal Medicine; ATTEND Internal Medicine

== ENCOUNTER 2017-09-01 13:13 | Inpatient (IN) ==
[2017-09-01] MEDS ORDERED: Ipratropium/Albuterol Neb 3 ML IH ONE (13:32)
[2017-09-01] MEDS ORDERED: Furosemide 40 MG/4 ML VIAL IVP ONE (13:32)
--- NOTE | 2017-09-01 13:36 | Emergency Department Note ---
Disposition Clinical Impression: Acute exacerbation of chronic obstructive airways disease Congestive heart failure Qualifiers: Heart failure type: unspecified Heart failure chronicity: acute Qualified Code( s): I50.9 - Heart failure, unspecified Disposition: Admitted As Inpatient Condition: Fair Referrals: Rosa Clarke MD [Primary Care Provider] - Forms: ED Satisfaction Letter Time of Disposition: 17:04 SOB HPI - General Chief Complaint: ED Shortness of Breath/Dyspnea Time Seen by Provider: 09/01/17 13:16 Source: patient, EMS Mode of arrival: EMS Limitations: no limitations Nursing Notes Reviewed: Yes Vital Signs Reviewed: Yes - History of Present Illness 82-year-old female with history CHF comes in with increasing shortness of breath over the last couple days. She does note that her weight is up over the last couple of days with peripheral edema. Pt Subjective Complaint: shortness of breath Onset (ago): day(s) Context: recent illness Severity: moderate Consistency/Duration: constant Improves with: nothing Worsens with: exertion Known history of: COPD, congestive heart failure Treatment prior to arrival: none - Related Data Home Medications Medication Instructions Recorded Confirmed Aspirin Enteric Coated [Aspirin EC] 81 mg PO DAILY 01/22/15 06/20/17 Metformin [Glucophage] 500 mg PO HS 01/22/15 06/20/17 Cholecalciferol (Vitamin D3) 5,000 unit PO DAILY 07/26/15 06/20/17 [Vitamin D3] rOPINIRole [Requip] 1 mg PO HS 07/26/15 06/20/17 Diltiazem HCl [Diltiazem ER] 240 mg PO DAILY 12/29/16 06/20/17 Amoxicillin/Clavulanate [Augmentin] 875 mg PO BIDWM 06/20/17 06/20/17 Atorvastatin [Lipitor] 10 mg PO HS 06/20/17 06/20/17 Citalopram Hydrobromide 10 mg PO DAILY 06/20/17 06/20/17 [Citalopram HBr] Docusate [Colace] 100 mg PO BID 06/20/17 06/20/17 Furosemide [Lasix] 40 mg PO BIDDIURETIC 06/20/17 06/20/17 Ipratropium/Albuterol Neb [Duoneb] 3 ml IH Q6HR 06/20/17 06/20/17 Multivitamin,Stress Formula/Zn 1 each PO DAILY 06/20/17 06/20/17 [Stress B with Zinc Tablet] Nicotine Patch [Nicoderm] 21 mg TD DAILY 06/20/17 06/20/17 Oseltamivir [Tamiflu] 75 mg PO BID 06/20/17 06/20/17 Oxycodone HCl [Oxaydo] 5 mg PO Q6H PRN 06/20/17 06/20/17 Polyethylene Glycol 3350 [MiraLAX] 17 gm PO DAILY 06/20/17 06/20/17 Ranitidine Oral Soln [Zantac] 75 mg PO DAILY 06/20/17 06/20/17 predniSONE [PredniSONE] 40 mg PO DAILY 06/20/17 06/20/17 Allergies Allergy/AdvReac Type Severity Reaction Status Date / Time No Known Allergies Allergy Verified 12/29/16 13:35 All systems ED: reviewed and negative except as stated. Constitutional: Denies: fever, chills, weakness, weight change Eyes: Denies: eye pain, eye discharge, vision change ENT ED: Denies: ear pain, throat pain, dental pain, hearing loss, epistaxis, congestion, dysphagia Cardiovascular: Reports: dyspnea on exertion. Denies: chest pain, palpitations , edema, syncope Respiratory: Reports: dyspnea. Denies: cough, wheezes, hemoptysis, stridor Gastrointestinal: Denies: abdominal pain, nausea, vomiting, diarrhea, constipation, hematemesis, melena, hematochezia Genitourinary: Denies: dysuria, frequency, hematuria, discharge Musculoskeletal: Denies: back pain, neck pain, arthralgia, myalgia Integumentary: Denies: rash, abrasion, lesions Neurological: Denies: headache, weakness, numbness, paresthesias, confusion, abnormal gait, vertigo Psychiatric: Denies: anxiety, depression, suicidal thoughts, homicidal thoughts , auditory hallucinations, visual hallucinations Endocrine: Denies: fatigue Hematological/Lymphatic: Denies: easy bleeding, easy bruising Allergic/Immunologic: Denies: facial swelling, urticaria Past Medical History - Past Medical History Medical history: Reports: asthma, atrial fibrillation, CHF, COPD, CVA, diabetes , hyperlipidemia, hypertension Surgical history: Reports: hysterectomy, orthopedic, other Psychiatric history: Reports: no psych history - Social History Smoking Status: Current some day smoker Smokeless Tobacco Status: No Alcohol use: Reports: occasionally Drug use: Reports: none Physical Exam - General Limitations: no limitations General appearance: alert, in no apparent distress - Head Head exam: atraumatic, normocephalic, normal inspection - Eye Eye exam: Present: normal appearance, PERRL, EOMI - ENT ENT exam: normal exam, normal oropharynx, mucous membranes moist - Neck Neck exam: Present: normal inspection, full ROM, trachea midline - Chest Chest inspection: Present: normal inspection, symmetric chest wall rise - Respiratory Respiratory exam: Present: wheezes, prolonged expiratory phase - Cardiovascular Cardiovascular exam: Present: regular rate, normal rhythm, normal heart sounds - Abdominal Exam Abdominal exam: Present: soft, Non-Tender. Absent: tenderness, distention, guarding, rebound, rigidity - Extremities Exam Extremities exam: Present: normal inspection, full ROM. Absent: tenderness, pedal edema - Expanded Lower Extremity Exam Neurovascular/Tendon exam: Absent: motor deficit, sensory deficit, tendon deficit Gait: observed and normal - Back Exam Back exam: Present: normal inspection, full ROM. Absent: tenderness Course - Reevaluation(s) Reevaluation #1: 82-year-old with increasing shortness of breath on exam she does have some rales. Chest x-ray shows some congestion with elevated BNP at 276. Patient in Lasix breathing treatment will be admitted. Time: 17:03 - Consultations Consultation #1: Discussed with , admit. Time: 17:03 Vital Signs Temperature 98 F 09/01/17 13:16 Pulse Rate 88 09/01/17 13:16 Respiratory Rate 18 09/01/17 13:16 Blood Pressure 107/80 09/01/17 13:16 O2 Sat by Pulse Oximetry 92 09/01/17 13:16 Temperature 98 F 09/01/17 13:16 Pulse Rate 88 09/01/17 13:16 Respiratory Rate 20 09/01/17 13:50 Blood Pressure 107/80 09/01/17 13:16 O2 Sat by Pulse Oximetry 96 09/01/17 13:50 Oxygen Delivery Oxygen Delivery Room Air Shortness of Breath/Dyspnea - Lab Data Result diagrams: 09/01/17 15:43 09/01/17 15:43 Lab Results 09/01/17 09/01/17 09/01/17 Range/Units 15:43 15:43 15:43 WBC 8.1 (4.3-11.1) K/mcL RBC 4.11 (3.82-4.97) M/mcL Hgb 11.0 L (11.5-15.4) g/dL Hct 34.2 L (35.3-44.9) % MCV 83.2 (83.0-100.0) fL MCH 26.8 L (28.0-33.3) pg MCHC 32.2 (31.6-35.5) g/dL RDW 15.9 H (11.5-14.5) % Plt Count 242 (140-400) K/mcL MPV 9.6 (9.4-12.4) fL Immature Gran % 0.6 (0-4) % Seg Neutrophils % 74.8 % Lymphocytes % 15.9 % Monocytes % 6.6 % Eosinophils % 1.1 % Basophils % 1.0 % Neutrophils # 6.1 (1.6-8.9) K/mcL Lymphocytes # 1.3 (0.6-4.6) K/mcL Monocytes # 0.5 (0.0-1.3) K/mcL Eosinophils # 0.1 (0.0-0.6) K/mcL Basophils # 0.1 (0.0-0.2) K/mcL Sodium 137 (136-145) mEq/L Potassium 3.6 (3.5-5.1) mEq/L Chloride 100 (98-107) mEq/L Carbon Dioxide 29 (23-29) mEq/L BUN 24 H (8-23) mg/dL Creatinine 0.81 (0.60-1.20) mg/dL Est GFR ( Amer) > 60 (> 60) Est GFR (Non-Af Amer) > 60 (> 60) BUN/Creatinine Ratio 30 H (6-26) Glucose 99 (70-105) mg/dL Calculated Osmolality 288 (280-300) Lactic Acid 0.6 (0.5-2.2) mmol/L Calcium 9.5 (8.6-10.3) mg/dL Troponin I < 0.03 (< 0.04) ng/mL B-Natriuretic Peptide (Less than 100) pg/mL 09/01/17 Range/Units 15:43 WBC (4.3-11.1) K/mcL RBC (3.82-4.97) M/mcL Hgb (11.5-15.4) g/dL Hct (35.3-44.9) % MCV (83.0-100.0) fL MCH (28.0-33.3) pg MCHC (31.6-35.5) g/dL RDW (11.5-14.5) % Plt Count (140-400) K/mcL MPV (9.4-12.4) fL Immature Gran % (0-4) % Seg Neutrophils % % Lymphocytes % % Monocytes % % Eosinophils % % Basophils % % Neutrophils # (1.6-8.9) K/mcL Lymphocytes # (0.6-4.6) K/mcL Monocytes # (0.0-1.3) K/mcL Eosinophils # (0.0-0.6) K/mcL Basophils # (0.0-0.2) K/mcL Sodium (136-145) mEq/L Potassium (3.5-5.1) mEq/L Chloride (98-107) mEq/L Carbon Dioxide (23-29) mEq/L BUN (8-23) mg/dL Creatinine (0.60-1.20) mg/dL Est GFR ( Amer) (> 60) Est GFR (Non-Af Amer) (> 60) BUN/Creatinine Ratio (6-26) Glucose (70-105) mg/dL Calculated Osmolality (280-300) Lactic Acid (0.5-2.2) mmol/L Calcium (8.6-10.3) mg/dL Troponin I (< 0.04) ng/mL B-Natriuretic Peptide 242 H (Less than 100) pg/mL - EKG Data EKG attestation: Yes I reviewed and interpreted this EKG. Rate: Reports: normal Rhythm: Reports: A.Fib [place]/QRS: Reports: normal Interpretation: Reports: no acute changes
[2017-09-01 16:07] LABS: Basophils # 0.1 K/mcL (0.0-0.2); Eosinophils # 0.1 K/mcL (0.0-0.6); Eosinophils % 1.1 %; Hematocrit 34.2 % (35.3-44.9); Immature Granulocytes % 0.6 % (0-4); Lymphocytes # 1.3 K/mcL (0.6-4.6); Lymphocytes % 15.9 %; Mean Corpuscular HGB Conc 32.2 g/dL (31.6-35.5); Mean Corpuscular Hemoglobin 26.8 pg (28.0-33.3); Mean Corpuscular Volume 83.2 fL (83.0-100.0); Mean Platelet Volume 9.6 fL (9.4-12.4); Monocytes # 0.5 K/mcL (0.0-1.3); Monocytes % 6.6 %; Neutrophils # 6.1 K/mcL (1.6-8.9); Platelet Count 242 K/mcL (140-400); Red Blood Count 4.11 M/mcL (3.82-4.97); Red Cell Distribution Width 15.9 % (11.5-14.5); Segmented Neutrophils % 74.8 %
[2017-09-01 16:21] LABS: Troponin I < 0.03 ng/mL (< 0.04)
[2017-09-01 16:22] LABS: BUN/Creatinine Ratio 30 (6-26); Blood Urea Nitrogen 24 mg/dL (8-23); Calcium 9.5 mg/dL (8.6-10.3); Carbon Dioxide 29 mEq/L (23-29); Chloride 100 mEq/L (98-107); Glucose 99 mg/dL (70-105); Osmolality,Calculated 288 (280-300); Potassium 3.6 mEq/L (3.5-5.1); Sodium 137 mEq/L (136-145); eGFR For African Americans > 60 (> 60); eGFR For Non-African Americans > 60 (> 60)
[2017-09-01] MEDS ORDERED: Acetaminophen 325 MG TABLET PO PRN (18:45)
[2017-09-01] MEDS ORDERED: Naloxone 0.4 MG/ML INJ IVP PRN (18:45)
[2017-09-01] MEDS ORDERED: D5% in Water 1,000 ML IVC PRN (18:48)
[2017-09-01] MEDS ORDERED: *HR* Dextrose 50 % in Water (Syg) 50 ML SYRINGE IVP PRN (18:48)
[2017-09-01] MEDS ORDERED: Dextrose Gel 15 GM/37.5 ML TUBE PO PRN ×2 (18:48)
[2017-09-01] MEDS ORDERED: Ipratropium/Albuterol Neb 3 ML IH PRN (18:51)
--- NOTE | 2017-09-01 18:52 | Internal Med History&Physical ---
Date of Encounter: 09/01/17 Time of Encounter: 18:52 Internal Medicine - H&P: HPI Chief complaint: Shortness of breath Admitted From: Emergency Dept Plans for Post Hospital Care: Home History of present illness: Ms. Whitman is a 82 year old female with multiple medical problems, who present with c/o- worsening shortness of breath. SHe reports a 3-week h/o- progressively worsening dyspnea and leg swelling, worse with exertion. She also has intermittent chest pain under her left breast, for the last 2 days. No cough , fever, chills, nausea and vomiting. She presented to her PCP office this morning with these complaints and was referred to ER for possible acute CHF. She has h/o- COPD and CHF and has no home O2, lives with her son at home. Past Med Surg Social Fam HX - Past Medical History Medical history: asthma, atrial fibrillation, CHF, COPD, CVA, diabetes, hyperlipidemia, hypertension Psychiatric history: no psych history - Past Surgical History Surgical History: hysterectomy, orthopedic, other (right elbow fracture repair) - Social History Smoking Status: Current some day smoker (reports quit smoking in May 2017) Smokeless Tobacco Status: No Alcohol use: none, occasionally Drug use: none Occupational status: retired Current living situation: Home, With Family Activity Level: Uses cane/walker Recent Out of Country Travel Within the Last 8 Weeks: No Exposure or Possible Exposure to Illness During Travel: No - Family History Father Adopted: No Family Member Ethnicity: Non- Living Status: Hx Family Cardiac Disorders: Yes Hx Family Respiratory Disorders: Yes Mother Adopted: No Family Member Ethnicity: Non- Living Status: Hx Family Cancer: Yes Grandmother Family Member Ethnicity: Non- Living Status: Hx Family Cardiac Disorders: Yes Hx Family Respiratory Disorders: No Hx Family Cancer: Yes Hx Family GI Disorders: No Hx Family Endocrine Disorder: Yes Hx Family Neuromuscular Disorders: No Hx Family Neurologic Disorders: No Hx Family HEENT Disorders: No Hx Family Autoimmune Disorders: No Internal Medicine - H&P: Meds Aspirin Enteric Coated [Aspirin EC] 81 mg PO DAILY 01/22/15 [History] Metformin [Glucophage] 500 mg PO HS 01/22/15 [History] Cholecalciferol (Vitamin D3) [Vitamin D3] 5,000 unit PO DAILY 07/26/15 [History] rOPINIRole [Requip] 1 mg PO HS 07/26/15 [History] Atorvastatin [Lipitor] 10 mg PO HS 06/20/17 [History] Citalopram Hydrobromide [Citalopram HBr] 10 mg PO DAILY 06/20/17 [History] Multivitamin,Stress Formula/Zn [Stress B with Zinc Tablet] 1 each PO DAILY 06/20 [History] Polyethylene Glycol 3350 [MiraLAX] 17 gm PO DAILY 06/20/17 [History] Ranitidine Oral Soln [Zantac] 75 mg PO DAILY 06/20/17 [History] Albuterol Neb [Proventil Neb] 2.5 mg IH Q6H PRN 09/01/17 [History] Albuterol Sulfate [Ventolin Hfa] 2 puff IH Q6H PRN 09/01/17 [History] Cyclosporine [Restasis] 1 each OP BID 09/01/17 [History] Furosemide [Lasix] 40 mg PO BID 09/01/17 [History] Hydrocortisone [Cortef] 5 mg PO 09/01/17 [History] Metoprolol [Lopressor] 25 mg PO BID 09/01/17 [History] Olopatadine HCl [Pataday] 2.5 ml OP 09/01/17 [History] Propylene Glycol/Peg 400 [Systane 0.3-0.4% Eye Drops] 15 ml OP 09/01/17 [History ] Tramadol HCl [Ultram] 50 mg PO BID PRN 09/01/17 [History] dilTIAZem HCl [Diltiazem ER] 240 mg PO DAILY 09/01/17 [History] 3 Allergy/AdvReac Type Severity Reaction Status Date / Time No Known Allergies Allergy Verified 12/29/16 13:35 All Systems PM: A 10-system review of systems was performed and is negative for pertinent findings except as documented above in the HPI. - Constitutional Constitutional: no chills, no fever(s), no night sweats - EENT Eyes: no change in vision, no discharge, no pain, no photophobia Ears: no ear discharge, no ear pain, no tinnitus Nose, mouth and throat: no dysphagia, no nasal discharge, no neck pain, no sore throat - Cardiovascular Cardiovascular ROS IM: chest pain, dyspnea, dyspnea on exertion, edema, irregular heart rhythm - Respiratory Respiratory: no cough, no dyspnea, no wheezing, no excessive phlegm production - Gastrointestinal Gastrointestinal: no abdominal pain, no diarrhea, no hematemesis, no hematochezia, no melena, no nausea, no vomiting - Genitourinary Genitourinary: no change in urinary stream, no dysuria, no flank pain, no hematuria - Musculoskeletal Musculoskeletal ROS IM: no numbness, no tingling - Integumentary Integumentary IM: no rash, no unusual bruising - Neurological Neurological ROS: no confusion, no convulsions, no focal weakness, no numbness, no tingling, no tremor(s) - Hematologic/Lymphatic Hematologic/Lymphatic: no easy bruising - Constitutional Vitals: Temp Pulse Resp BP Pulse Ox 98 F 84 18 122/65 98 09/01/17 13:16 09/01/17 17:53 09/01/17 17:53 09/01/17 17:53 09/01/17 17:53 General appearance: Present: A&O X 3, answers questions appropriately - Respiratory Respiratory exam: Present: CTAB, rales (bibasal crackles). Absent: accessory muscle use, rhonchi, wheezes - Cardiovascular Cardiovascular exam: Present: irregular rhythm, +S1, +S2. Absent: diastolic murmur, gallop, rubs, systolic murmur - GI/Abdominal GI/Abdominal exam: Present: normal bowel sounds, soft (obese), no peritoneal signs. Absent: distended, tenderness - Extremities Exam Extremities exam: Present: full ROM, pedal edema (1+ pitting pedal edema B/L), warm, radial pulses palpable and symmetrical. Absent: calf tenderness, cyanotic - Neurological Exam Neurological exam: Present: CN II-XII intact, oriented X3, no focal deficits. Absent: pronater drift, facial droop, speech deficit - Skin Skin exam: Present: dry, intact Internal Med - H&P Results - Labs CBC & Chem 7: 09/01/17 15:43 09/01/17 15:43 - Assessment and plan (1) Congestive heart failure Current Visit: Yes Status: Acute Assessment and plan: Presents with dyspnea, pedal edema, weight gain; Echo from November 2016 shows preserved EF, indeterminate diastolic function, biatrial dilation; Hold Lasix PO and start IV Lasix along with fluid restriction, urine output monitoring and daily weights; continue beta joseph and ASA. Check TTE. Continue Telemetry monitoring and serial Troponins; EKG reviewed independently- shows atrial fibrillation, rate-controlled. Chest XRay reviewed independently- shows B/L mild pleural effusions, cardiomegaly, central pulmonary vascular congestion. Qualifiers: Heart failure type: diastolic Heart failure chronicity: acute on chronic Qualified Code(s): I50.33 - Acute on chronic diastolic (congestive) heart failure (2) Tobacco abuse Current Visit: Yes Status: Chronic Assessment and plan: reports quitting since 3 months; continue to monitor; (3) Atrial fibrillation Current Visit: Yes Status: Chronic Assessment and plan: per previous notes, has not been started on anticoagulation due to memory loss and frequent falls. Continue Telemetry, rate control with calcium channel joseph and beta joseph. Qualifiers: Atrial fibrillation type: chronic Qualified Code(s): I48.2 - Chronic atrial fibrillation (4) COPD (chronic obstructive pulmonary disease) Current Visit: Yes Status: Chronic Assessment and plan: not in acute exacerbation; continue home meds with PRN nebs and supplemental O2; Qualifiers: COPD type: unspecified COPD Qualified Code(s): J44.9 - Chronic obstructive pulmonary disease, unspecified (5) Hypertension Current Visit: Yes Status: Chronic Qualifiers: Hypertension type: essential hypertension Qualified Code(s): I10 - Essential (primary) hypertension (6) Type 2 diabetes mellitus Current Visit: Yes Status: Chronic Assessment and plan: start Accucheck blood glucose monitoring with sliding scale insulin. Diabetic diet. check HbA1C. hold oral hypoglycemics for now. Qualifiers: Diabetes mellitus terminologist insulin use: without halfway use Diabetes mellitus complication status: with unspecified complications Qualified Code(s) : E11.8 - Type 2 diabetes mellitus with unspecified complications - Time Spent With Patient Total time spent is greater than 50% in coordination of care (as documented) at patient's floor/unit and/or counseling patient:
[2017-09-01 21:54] LABS: Estimated Average Glucose 123 mg/dl; Hemoglobin A1C 5.9 %
[2017-09-02] MEDS: Insulin LISPRO 300 UNITS/3 ML VIAL SQ SCH ×5 (00:50→21:18)
[2017-09-02] MEDS: Furosemide 40 MG/4 ML VIAL IVP SCH ×3 (00:51→21:22)
[2017-09-02] MEDS: *HR* Heparin 5,000 UNIT/ML VIAL SQ SCH ×3 (00:51→16:41)
[2017-09-02] MEDS: rOPINIRole 1 MG TABLET PO SCH ×2 (00:51→21:26)
[2017-09-02 05:22] LABS: Basophils % 0.7 %; Eosinophils # 0.1 K/mcL (0.0-0.6); Eosinophils % 2.2 %; Hematocrit 31.7 % (35.3-44.9); Hemoglobin 10.1 g/dL (11.5-15.4); Immature Granulocytes % 0.5 % (0-4); Lymphocytes % 16.1 %; Mean Corpuscular HGB Conc 31.9 g/dL (31.6-35.5); Mean Corpuscular Hemoglobin 26.6 pg (28.0-33.3); Mean Corpuscular Volume 83.4 fL (83.0-100.0); Mean Platelet Volume 9.6 fL (9.4-12.4); Monocytes # 0.5 K/mcL (0.0-1.3); Monocytes % 8.8 %; Neutrophils # 4.2 K/mcL (1.6-8.9); Platelet Count 221 K/mcL (140-400); Red Cell Distribution Width 15.9 % (11.5-14.5); Segmented Neutrophils % 71.7 %
[2017-09-02 05:40] LABS: BUN/Creatinine Ratio 26 (6-26); Blood Urea Nitrogen 22 mg/dL (8-23); Calcium 8.9 mg/dL (8.6-10.3); Carbon Dioxide 30 mEq/L (23-29); Chloride 102 mEq/L (98-107); Glucose 104 mg/dL (70-105); Magnesium 2.1 mg/dL (1.6-2.6); Osmolality,Calculated 294 (280-300); Potassium 3.8 mEq/L (3.5-5.1); Sodium 140 mEq/L (136-145); eGFR For African Americans > 60 (> 60); eGFR For Non-African Americans > 60 (> 60)
[2017-09-02] MEDS: Diltiazem CD (24hr) 240 MG CAPSULE PO SCH (08:03)
[2017-09-02] MEDS: Aspirin Enteric Coated 81 MG Tablet PO SCH (08:06)
--- NOTE | 2017-09-02 12:56 | Internal Med Progress Note ---
Date of Encounter: 09/02/17 Time of Encounter: 12:54 - Assessment and plan (1) Congestive heart failure Current Visit: Yes Status: Acute Assessment and plan: Acute pulmonary edema with bilateral small pleural effusions secondary to acute diastolic CHF exacerbation Echo from November 2016 showed preserved EF, indeterminate diastolic function, biatrial dilation; Continue IV Lasix along with fluid restriction, urine output monitoring and daily weights; continue beta joseph and ASA. TTE pending. Telemetry monitoring Chest XRay reviewed independently- showed B/L mild pleural effusions, cardiomegaly, central pulmonary vascular congestion. Qualifiers: Heart failure type: diastolic Heart failure chronicity: acute on chronic Qualified Code(s): I50.33 - Acute on chronic diastolic (congestive) heart failure (2) Atrial fibrillation Current Visit: Yes Status: Chronic Assessment and plan: not been started on anticoagulation due to memory loss and frequent falls. Continue Telemetry, rate control with metoprolol and Cardizem Qualifiers: Atrial fibrillation type: chronic Qualified Code(s): I48.2 - Chronic atrial fibrillation (3) Hypertension Current Visit: Yes Status: Chronic Qualifiers: Hypertension type: essential hypertension Qualified Code(s): I10 - Essential (primary) hypertension (4) COPD (chronic obstructive pulmonary disease) Current Visit: Yes Status: Chronic Assessment and plan: not in acute exacerbation; continue home meds with PRN nebs and supplemental O2; Qualifiers: COPD type: unspecified COPD Qualified Code(s): J44.9 - Chronic obstructive pulmonary disease, unspecified (5) Tobacco abuse Current Visit: Yes Status: Chronic Assessment and plan: reports quitting since 3 months (6) Type 2 diabetes mellitus Current Visit: Yes Status: Chronic Assessment and plan: start Accucheck blood glucose monitoring with sliding scale insulin. Diabetic diet. HbA1C was 5.9. hold oral hypoglycemics for now. Qualifiers: Diabetes mellitus oil heaterman insulin use: without oil heaterman use Diabetes mellitus complication status: with unspecified complications Qualified Code(s) : E11.8 - Type 2 diabetes mellitus with unspecified complications - Time Spent With Patient Total time spent is greater than 50% in coordination of care (as documented) at patient's floor/unit and/or counseling patient: - Subjective Interval history: Feeling less short of breath, denies any chest pain, no abdominal pain, no dysuria, no fevers or chills - Constitutional Vitals: Temp Pulse Resp BP Pulse Ox 97.4 F L 77 20 108/64 96 09/02/17 11:23 09/02/17 11:23 09/02/17 11:23 09/02/17 11:23 09/02/17 11:23 General appearance: Present: A&O X 3, morbidly obese, answers questions appropriately - Head Head exam: Present: atraumatic, normocephalic - Eye Eye exam: Present: PERRL, conjuntiva pink, sclera anicteric Pupils: Present: PERRL - Neck Neck exam general surgery: Present: supple, trachea midline. Absent: lymphadenopathy - Respiratory Respiratory exam: Present: CTAB, rales (Blunted breath sounds at both bases, diffuse crackles). Absent: accessory muscle use, rhonchi, wheezes - Cardiovascular Cardiovascular exam: Present: RRR, +S1, +S2. Absent: diastolic murmur, gallop, rubs, systolic murmur - GI/Abdominal GI/Abdominal exam: Present: normal bowel sounds, soft, no peritoneal signs. Absent: distended, tenderness - Extremities Exam Extremities exam: Present: warm, radial pulses palpable and symmetrical. Absent : calf tenderness, cyanotic, pedal edema - Neurological Exam Neurological exam: Present: CN II-XII intact, oriented X3, no focal deficits. Absent: pronater drift, facial droop, speech deficit - Skin Skin exam: Present: dry, intact Internal Medicine: Result - Labs CBC & Chem 7: 09/02/17 04:21 09/02/17 04:21 Labs: Short CBC 09/02/17 Range/Units 04:21 WBC 5.9 (4.3-11.1) K/mcL Hgb 10.1 L (11.5-15.4) g/dL Hct 31.7 L (35.3-44.9) % Plt Count 221 (140-400) K/mcL Neutrophils # 4.2 (1.6-8.9) K/mcL BMP 09/02/17 04:21 Sodium 140 Potassium 3.8 Chloride 102 Carbon Dioxide 30 H BUN 22 Creatinine 0.85 Glucose 104 Calcium 8.9 Cardiac Enzymes 09/01/17 09/02/17 09/02/17 Range/Units 21:27 04:21 09:54 Troponin I < 0.03 < 0.03 < 0.03 (< 0.04) ng/mL Consult Discharge Plan - Plan Referrals: Rosa Clarke MD [Primary Care Provider] -
--- NOTE | 2017-09-02 19:45 | Electrocardiograph Report ---
[place] [id number] Test Date: 2017-09-01 Pat Name: Vale Whitman Department: 104 Room: [facility] Gender: F [employer] Operator: GIDEON : 1935 Requested By: Alexandre Cobb Order Number: [id number] Reading MD: Conor Nguyen Measurements Intervals [place] Rate: 88 P: NV: 0 QRS: 53 QRSD: 88 T: 45 QT: 374 QTc: 419 Interpretive Statements ATRIAL FIBRILLATION Electronically Signed On 09-02-2017 19:44:31 EDT by Conor Nguyen
[2017-09-03] MEDS: *HR* Heparin 5,000 UNIT/ML VIAL SQ SCH ×4 (01:20→23:56)
[2017-09-03] MEDS: Insulin LISPRO 300 UNITS/3 ML VIAL SQ SCH ×4 (08:04→21:32)
[2017-09-03] MEDS: Diltiazem CD (24hr) 240 MG CAPSULE PO SCH (09:29)
--- NOTE | 2017-09-03 09:30 | Internal Med Progress Note ---
Date of Encounter: 09/03/17 Time of Encounter: 09:15 - Assessment and plan (1) Congestive heart failure Current Visit: Yes Status: Acute Assessment and plan: Acute pulmonary edema with bilateral small pleural effusions secondary to acute diastolic CHF exacerbation Echo from November 2016 showed preserved EF, indeterminate diastolic function, biatrial dilation; Continue IV Lasix along with fluid restriction, urine output monitoring and daily weights; continue beta joseph and ASA. TTE pending. Telemetry monitoring Chest XRay reviewed independently- showed B/L mild pleural effusions, cardiomegaly, central pulmonary vascular congestion. 5: Continues to improve. Change Lasix to oral. She is still mildly dyspneic. May need home oxygen. Continue to monitor. Physical therapy evaluation ordered. Echocardiogram showed EF of 60-65%, and determine a diastolic function, right ventricle and biatrial enlargement. Blood pressures on the soft side today. Her morning Cardizem doses held but we will continue beta joseph. Increase activity as tolerated. Qualifiers: Heart failure type: diastolic Heart failure chronicity: acute on chronic Qualified Code(s): I50.33 - Acute on chronic diastolic (congestive) heart failure (2) Type 2 diabetes mellitus Current Visit: Yes Status: Chronic Assessment and plan: start Accucheck blood glucose monitoring with sliding scale insulin. Diabetic diet. HbA1C was 5.9. hold oral hypoglycemics for now. 09/03: Reasonable glycemic control Qualifiers: Diabetes mellitus long goods drier insulin use: without long goods drier use Diabetes mellitus complication status: with unspecified complications Qualified Code(s) : E11.8 - Type 2 diabetes mellitus with unspecified complications (3) Atrial fibrillation Current Visit: Yes Status: Chronic Assessment and plan: not been started on anticoagulation due to memory loss and frequent falls. Continue Telemetry, rate control with metoprolol and Cardizem 45: Rate is controlled. She was held this morning due to low blood pressure but will monitor. She is on low-dose aspirin for stroke prevention. No anticoagulation as mentioned above. Qualifiers: Atrial fibrillation type: chronic Qualified Code(s): I48.2 - Chronic atrial fibrillation (4) Hypertension Current Visit: Yes Status: Chronic Assessment and plan: Blood pressure running on soft side. Cardizem was held today. We will monitor. Remains on Lopressor 25 mg by mouth twice a day Qualifiers: Hypertension type: essential hypertension Qualified Code(s): I10 - Essential (primary) hypertension (5) COPD (chronic obstructive pulmonary disease) Current Visit: Yes Status: Chronic Assessment and plan: not in acute exacerbation; continue home meds with PRN nebs and supplemental O2; Patient also has acute hypoxemic respiratory failure. She may need home oxygen. ? If she has underlying chronic hypoxemic respiratory failure Qualifiers: COPD type: unspecified COPD Qualified Code(s): J44.9 - Chronic obstructive pulmonary disease, unspecified (6) Tobacco abuse Current Visit: Yes Status: Chronic Assessment and plan: reports quitting since 3 months 09/03: Ongoing cessation is urged - Time Spent With Patient Total time spent is greater than 50% in coordination of care (as documented) at patient's floor/unit and/or counseling patient: 25 - 35 minutes - Subjective Interval history: Ms. Whitman is a 82 year old female with multiple medical problems, who present with c/o- worsening shortness of breath. SHe reports a 3-week h/o- progressively worsening dyspnea and leg swelling, worse with exertion. She also has intermittent chest pain under her left breast, for the last 2 days. No cough , fever, chills, nausea and vomiting. She presented to her PCP office this morning with these complaints and was referred to ER for possible acute CHF. She has h/o- COPD and CHF and has no home O2, lives with her son at home. 09/03/17: CC: SOB Patient states she feels less short of breath today but is still requiring 2 L of oxygen. He comes we did when she walks in the bathroom. She has no chest pain. No cough. No fevers or chills. No nausea, vomiting, diarrhea. Her lower extremity edema has improved. She states that she thinks her heart failure symptoms began after eating a light of him during [place]. - Constitutional Vitals: Temp Pulse Resp BP Pulse Ox 98.2 F 82 18 95/58 97 09/03/17 07:18 09/03/17 09:25 09/03/17 07:18 09/03/17 09:25 09/03/17 07:18 General appearance: Present: A&O X 3, morbidly obese, no acute distress, answers questions appropriately Exam: Very mild full sentence dyspnea - Head Head exam: Present: atraumatic, normocephalic - Eye Eye exam: Present: PERRL, conjuntiva pink, sclera anicteric Pupils: Present: PERRL - Neck Neck exam general surgery: Present: supple, trachea midline. Absent: lymphadenopathy - Respiratory Respiratory exam: Present: rales - Cardiovascular Cardiovascular exam: Present: irregular rhythm - GI/Abdominal GI/Abdominal exam: Present: normal bowel sounds, soft, no peritoneal signs. Absent: distended, tenderness - Extremities Exam Extremities exam: Present: pedal edema - Neurological Exam Neurological exam: Present: CN II-XII intact, oriented X3, no focal deficits. Absent: pronater drift, facial droop, speech deficit - Skin Skin exam: Present: dry, intact Internal Medicine: Result - Labs CBC & Chem 7: 09/02/17 04:21 09/02/17 04:21 Labs: Cardiac Enzymes 09/02/17 Range/Units 09:54 Troponin I < 0.03 (< 0.04) ng/mL - Impressions Impressions Echocardiogram 09/02/17 18:50 Impressions: LVEF 60-65%. Indeterminate diastolic function. RV is dilated. Function appears normal. Severe bi-atrial enlargement. Moderate mitral regurgitation. Moderate aortic regurgitation. Mild-moderate tricuspid regurgitation. Moderate pulmonary hypertension. Left Ventricular Wall Motion: Rest Echo Findings All wall segments showed normal motion. Findings: Study Quality * Technically adequate exam. ECG Findings * Atrial fibrillation. Left Ventricle * LVEF 60-65%. * Normal LV chamber size, wall thickness and function. * Indeterminate diastolic function. Right Ventricle * RV is dilated. Function appears normal. Left Atrium * Severely dilated left atrium. Right Atrium * Severely dilated right atrium. Mitral Valve * Normal mitral valve structure. * No mitral stenosis. * Mild mitral annular calcification * Moderate mitral regurgitation. Aortic Valve * Aortic valve not well visualized. * No aortic stenosis. * Moderate aortic regurgitation. Tricuspid Valve * Normal tricuspid valve structure. * Mild-moderate tricuspid regurgitation. * Estimated RA pressure is 8 mmHg. * Estimated RVSP is 51 mmHg. * Moderate pulmonary hypertension. Pulmonic Valve * Pulmonic valve is not well visualized. * No pulmonic stenosis. * No pulmonic regurgitation. Pulmonary Artery * Pulmonary artery not well visualized. Aorta * Normally sized aortic root. * Proximal ascending aorta not well visualized. Pericardium * There is no pericardial effusion present. Interatrial Septum * No evidence of PFO by color Doppler. IVC * The IVC is not dilated. * < 50% respiratory change. Consult Discharge Plan - Plan Referrals: Rosa Clarke MD [Primary Care Provider] -
[2017-09-03] MEDS: Furosemide 40 MG/4 ML VIAL IVP SCH (09:32)
[2017-09-03] MEDS: Aspirin Enteric Coated 81 MG Tablet PO SCH (09:32)
[2017-09-03] MEDS: rOPINIRole 1 MG TABLET PO SCH (21:35)
[2017-09-04 02:52] LABS: BUN/Creatinine Ratio 38 (6-26); Blood Urea Nitrogen 33 mg/dL (8-23); Calcium 8.8 mg/dL (8.6-10.3); Carbon Dioxide 29 mEq/L (23-29); Chloride 104 mEq/L (98-107); Glucose 98 mg/dL (70-105); Magnesium 2.2 mg/dL (1.6-2.6); Osmolality,Calculated 297 (280-300); Potassium 3.8 mEq/L (3.5-5.1); Sodium 140 mEq/L (136-145); eGFR For African Americans > 60 (> 60); eGFR For Non-African Americans > 60 (> 60)
[2017-09-04 03:09] LABS: Hematocrit 31.7 % (35.3-44.9); Hemoglobin 10.2 g/dL (11.5-15.4); Mean Corpuscular HGB Conc 32.2 g/dL (31.6-35.5); Mean Corpuscular Hemoglobin 26.6 pg (28.0-33.3); Mean Corpuscular Volume 82.6 fL (83.0-100.0); Mean Platelet Volume 9.8 fL (9.4-12.4); Platelet Count 219 K/mcL (140-400); Red Blood Count 3.84 M/mcL (3.82-4.97); Red Cell Distribution Width 15.8 % (11.5-14.5)
[2017-09-04] MEDS: Insulin LISPRO 300 UNITS/3 ML VIAL SQ SCH ×4 (08:44→20:14)
[2017-09-04] MEDS: *HR* Heparin 5,000 UNIT/ML VIAL SQ SCH ×3 (08:56→22:57)
[2017-09-04] MEDS: Aspirin Enteric Coated 81 MG Tablet PO SCH (08:56)
[2017-09-04] MEDS: Furosemide 40 MG TABLET PO SCH (08:57)
[2017-09-04] MEDS: Diltiazem CD (24hr) 240 MG CAPSULE PO SCH (08:57)
--- NOTE | 2017-09-04 10:10 | Internal Med Progress Note ---
Date of Encounter: 09/04/17 Time of Encounter: 09:00 - Assessment and plan (1) Acute respiratory failure with hypoxia Current Visit: No Status: Acute Assessment and plan: Suspect primarily due to CHF. Will attempt to wean oxygen today. I do not believe she is having a COPD exacerbation or pneumonia. (2) Congestive heart failure Current Visit: Yes Status: Acute Assessment and plan: Acute pulmonary edema with bilateral small pleural effusions secondary to acute diastolic CHF exacerbation Echo from November 2016 showed preserved EF, indeterminate diastolic function, biatrial dilation; Continue IV Lasix along with fluid restriction, urine output monitoring and daily weights; continue beta joseph and ASA. TTE pending. Telemetry monitoring Chest XRay reviewed independently- showed B/L mild pleural effusions, cardiomegaly, central pulmonary vascular congestion. 09/03: Continues to improve. Change Lasix to oral. She is still mildly dyspneic. May need home oxygen. Continue to monitor. Physical therapy evaluation ordered. Echocardiogram showed EF of 60-65%, and determine a diastolic function, right ventricle and biatrial enlargement. Blood pressures on the soft side today. Her morning Cardizem doses held but we will continue beta joseph. Increase activity as tolerated. 6: Improved. Suspect she is nearly compensated. Continue with oral Lasix and will monitor one more day due to increased oxygen requirement. Monitor. Blood pressure control is excellent presently. Qualifiers: Heart failure type: diastolic Heart failure chronicity: acute on chronic Qualified Code(s): I50.33 - Acute on chronic diastolic (congestive) heart failure (3) Type 2 diabetes mellitus Current Visit: Yes Status: Chronic Assessment and plan: start Accucheck blood glucose monitoring with sliding scale insulin. Diabetic diet. HbA1C was 5.9. hold oral hypoglycemics for now. 6: Reasonable glycemic control Qualifiers: Diabetes mellitus termite exterminator insulin use: without termite exterminator use Diabetes mellitus complication status: with unspecified complications Qualified Code(s) : E11.8 - Type 2 diabetes mellitus with unspecified complications (4) Atrial fibrillation Current Visit: Yes Status: Chronic Assessment and plan: not been started on anticoagulation due to memory loss and frequent falls. Continue Telemetry, rate control with metoprolol and Cardizem 09/03: Rate is controlled. She was held this morning due to low blood pressure but will monitor. She is on low-dose aspirin for stroke prevention. No anticoagulation as mentioned above. Qualifiers: Atrial fibrillation type: chronic Qualified Code(s): I48.2 - Chronic atrial fibrillation (5) Hypertension Current Visit: Yes Status: Chronic Qualifiers: Hypertension type: essential hypertension Qualified Code(s): I10 - Essential (primary) hypertension (6) COPD (chronic obstructive pulmonary disease) Current Visit: Yes Status: Chronic Assessment and plan: not in acute exacerbation; continue home meds with PRN nebs and supplemental O2; Patient also has acute hypoxemic respiratory failure. She may need home oxygen. ? If she has underlying chronic hypoxemic respiratory failure 09/04: Doubt she is having an acute exacerbation. Continue to wean oxygen as able. Bronchodilator therapy. Qualifiers: COPD type: unspecified COPD Qualified Code(s): J44.9 - Chronic obstructive pulmonary disease, unspecified (7) Tobacco abuse Current Visit: Yes Status: Chronic Assessment and plan: reports quitting since 3 months 09/03: Ongoing cessation is urged - Time Spent With Patient Total time spent is greater than 50% in coordination of care (as documented) at patient's floor/unit and/or counseling patient: 25 - 35 minutes - Subjective Interval history: Ms. Whitman is a 82 year old female with multiple medical problems, who present with c/o- worsening shortness of breath. SHe reports a 3-week h/o- progressively worsening dyspnea and leg swelling, worse with exertion. She also has intermittent chest pain under her left breast, for the last 2 days. No cough , fever, chills, nausea and vomiting. She presented to her PCP office this morning with these complaints and was referred to ER for possible acute CHF. She has h/o- COPD and CHF and has no home O2, lives with her son at home. 09/03/17: CC: SOB Patient states she feels less short of breath today but is still requiring 2 L of oxygen. He comes we did when she walks in the bathroom. She has no chest pain. No cough. No fevers or chills. No nausea, vomiting, diarrhea. Her lower extremity edema has improved. She states that she thinks her heart failure symptoms began after eating a light of him during [place]. 09/04/17: Shortness of breath is improved but she still is winded getting up. She is on 2.5 L of oxygen per nasal cannula this morning. She denies any chest pain. No nausea or vomiting. No fevers or chills. Continues to have lower extremity edema unchanged from yesterday. She states she has not really gotten up much today or yesterday thus far. - Constitutional Vitals: Temp Pulse Resp BP Pulse Ox 98.8 F 93 15 115/56 93 09/04/17 07:27 09/04/17 07:27 09/04/17 07:27 09/04/17 07:27 09/04/17 07:27 General appearance: Present: A&O X 3, morbidly obese, no acute distress, answers questions appropriately - Head Head exam: Present: atraumatic, normocephalic - Neck Neck exam general surgery: Present: supple, trachea midline. Absent: lymphadenopathy - Respiratory Respiratory exam: Present: rales - Cardiovascular Cardiovascular exam: Present: RRR, +S1, +S2. Absent: diastolic murmur, gallop, rubs, systolic murmur - GI/Abdominal GI/Abdominal exam: Present: normal bowel sounds, soft, no peritoneal signs. Absent: distended, tenderness - Extremities Exam Extremities exam: Present: pedal edema (2+ edema bilaterally, chronic venous stasis changes bilaterally) - Neurological Exam Neurological exam: Present: CN II-XII intact, oriented X3, no focal deficits. Absent: pronater drift, facial droop, speech deficit - Skin Skin exam: Present: dry, intact Internal Medicine: Result - Labs CBC & Chem 7: 09/04/17 02:00 09/04/17 02:00 Labs: Short CBC 09/04/17 Range/Units 02:00 WBC 6.4 (4.3-11.1) K/mcL Hgb 10.2 L (11.5-15.4) g/dL Hct 31.7 L (35.3-44.9) % Plt Count 219 (140-400) K/mcL BMP 09/04/17 02:00 Sodium 140 Potassium 3.8 Chloride 104 Carbon Dioxide 29 BUN 33 H Creatinine 0.86 Glucose 98 Calcium 8.8 Consult Discharge Plan - Plan Referrals: Rosa Clarke MD [Primary Care Provider] -
[2017-09-04] MEDS: Ipratropium/Albuterol Neb 3 ML IH SCH ×2 (16:09→21:33)
[2017-09-04] MEDS: rOPINIRole 1 MG TABLET PO SCH (20:12)
[2017-09-05 02:10] LABS: BUN/Creatinine Ratio 45 (6-26); Blood Urea Nitrogen 42 mg/dL (8-23); Calcium 8.9 mg/dL (8.6-10.3); Carbon Dioxide 27 mEq/L (23-29); Chloride 106 mEq/L (98-107); Glucose 122 mg/dL (70-105); Osmolality,Calculated 302 (280-300); Potassium 4.7 mEq/L (3.5-5.1); Sodium 140 mEq/L (136-145); eGFR For African Americans > 60 (> 60); eGFR For Non-African Americans 57 (> 60)
[2017-09-05] MEDS: Ipratropium/Albuterol Neb 3 ML IH SCH ×3 (04:39→15:41)
[2017-09-05] MEDS: Diltiazem CD (24hr) 240 MG CAPSULE PO SCH (08:45)
[2017-09-05] MEDS: Aspirin Enteric Coated 81 MG Tablet PO SCH (08:45)
[2017-09-05] MEDS: Insulin LISPRO 300 UNITS/3 ML VIAL SQ SCH (08:46)
[2017-09-05] MEDS: *HR* Heparin 5,000 UNIT/ML VIAL SQ SCH (08:46)
[2017-09-05] MEDS: Furosemide 40 MG TABLET PO SCH (08:46)
[2017-09-05 11:43] VITALS: BP 130/68
--- NOTE | 2017-09-05 12:17 | Discharge Summary ---
- NOTES TO OUTPATIENT PROVIDER Notes to Outpatient Provider: Admitted for CHF, diastolic (EF 60-65%). Needs BMP in 3-4 days as she is on lasix Date of Encounter: 09/05/17 Time of Encounter: 11:00 - Discharge Diagnosis (1) Acute respiratory failure with hypoxia Priority: Secondary Status: Acute (2) Congestive heart failure Priority: Primary Status: Acute Qualifiers: Heart failure type: diastolic Heart failure chronicity: acute on chronic Qualified Code(s): I50.33 - Acute on chronic diastolic (congestive) heart failure (3) Type 2 diabetes mellitus Priority: Secondary Status: Chronic Qualifiers: Diabetes mellitus intermediate teacher insulin use: without intermediate teacher use Diabetes mellitus complication status: with unspecified complications Qualified Code(s) : E11.8 - Type 2 diabetes mellitus with unspecified complications (4) Atrial fibrillation Priority: Secondary Status: Chronic Qualifiers: Atrial fibrillation type: chronic Qualified Code(s): I48.2 - Chronic atrial fibrillation (5) Hypertension Priority: Secondary Status: Chronic Qualifiers: Hypertension type: essential hypertension Qualified Code(s): I10 - Essential (primary) hypertension (6) COPD (chronic obstructive pulmonary disease) Priority: Secondary Status: Chronic Qualifiers: COPD type: unspecified COPD Qualified Code(s): J44.9 - Chronic obstructive pulmonary disease, unspecified (7) Tobacco abuse Priority: Secondary Status: Chronic Comments: Quit 3 mos ago Hospital course: Ms. Whitman is a 82 year old female with multiple medical problems, who present with c/o- worsening shortness of breath. SHe reports a 3-week h/o- progressively worsening dyspnea and leg swelling, worse with exertion. She also has intermittent chest pain under her left breast, for the last 2 days. No cough , fever, chills, nausea and vomiting. She presented to her PCP office this morning with these complaints and was referred to ER for possible acute CHF. She has h/o- COPD and CHF and has no home O2, lives with her son at home. 09/03/17: CC: SOB Patient states she feels less short of breath today but is still requiring 2 L of oxygen. He comes we did when she walks in the bathroom. She has no chest pain. No cough. No fevers or chills. No nausea, vomiting, diarrhea. Her lower extremity edema has improved. She states that she thinks her heart failure symptoms began after eating a light of him during . 09/04/17: Shortness of breath is improved but she still is winded getting up. She is on 2.5 L of oxygen per nasal cannula this morning. She denies any chest pain. No nausea or vomiting. No fevers or chills. Continues to have lower extremity edema unchanged from yesterday. She states she has not really gotten up much today or yesterday thus far. 09/05: She did well. She was weaned off supplemental oxygen and ambulating without difficulty. He diuresed a total of about 2.5 L. Blood pressure remained under good control. Renal function was stable with a discharge BUN/ creatinine of 42 over 0.94. He had an echocardiogram which showed EF of 60-65% , with diastolic dysfunction. Patient will be discharged on Lasix 40 mg by mouth twic a day. He will continue on Lopressor 25 mg by mouth twice a day. Also added lisinopril 2.5 mg by mouth daily. She will need a repeat BMP in 2-4 days. She will up with her primary care provider next week. CHF discharge instructions given to the patient. She quit smoking 3 months ago and ongoing cessation is urged. Disposition discharge stable. 38 minutes spent on discharge and coordination of care. Patient remains on aspirin for her history of atrial fibrillation, no anticoagulation per reported history of falls per patient. I will defer further management of this to her primary care provider on follow-up. Patient states that she ate lots of salty foods including ham on Thursday. I suspect this is what tipped her over the edge for development of CHF. Discharge discussed with: patient Time spent discussing smoking cessation with patient: 3 to 10 minutes - Time Spent with Patient Total time spent providing and/or coordinating discharge services: Greater than 30 minutes (38) - Discharge Medications Prescriptions: Lisinopril 2.5 mg PO DAILY 30 Days #30 tablet Home Medications: Aspirin Enteric Coated [Aspirin EC] 81 mg PO DAILY 01/22/15 [History] Metformin [Glucophage] 500 mg PO HS 01/22/15 [History] Cholecalciferol (Vitamin D3) [Vitamin D3] 5,000 unit PO DAILY 07/26/15 [History] rOPINIRole [Requip] 1 mg PO HS 02/25/16 [History] Atorvastatin [Lipitor] 10 mg PO HS 06/20/17 [History] Citalopram Hydrobromide [Citalopram HBr] 10 mg PO DAILY 06/20/17 [History] Multivitamin,Stress Formula/Zn [Stress B with Zinc Tablet] 1 each PO DAILY 06/20 [History] Polyethylene Glycol 3350 [MiraLAX] 17 gm PO DAILY 06/20/17 [History] Ranitidine Oral Soln [Zantac] 75 mg PO DAILY 06/20/17 [History] Albuterol Neb [Proventil Neb] 2.5 mg IH Q6H PRN 09/01/17 [History] Albuterol Sulfate [Ventolin Hfa] 2 puff IH Q6H PRN 09/01/17 [History] Cyclosporine [Restasis] 1 each OP BID 09/01/17 [History] Furosemide [Lasix] 40 mg PO BID 09/01/17 [History] Hydrocortisone [Cortef] 5 mg PO 09/01/17 [History] Metoprolol [Lopressor] 25 mg PO BID 09/01/17 [History] Olopatadine HCl [Pataday] 2.5 ml OP 09/01/17 [History] Propylene Glycol/Peg 400 [Systane 0.3-0.4% Eye Drops] 15 ml OP 09/01/17 [History ] Tramadol HCl [Ultram] 50 mg PO BID PRN 09/01/17 [History] dilTIAZem HCl [Diltiazem ER] 240 mg PO DAILY 09/01/17 [History] Acetaminophen [Tylenol] 650 mg PO Q6HR PRN tablet 09/05/17 [Rx] Citalopram [CeleXA] 10 mg PO DAILY tablet 09/05/17 [Rx] Lisinopril 2.5 mg PO DAILY 30 Days #30 tablet 09/05/17 [Rx] Allergies/Adverse Reactions: 3 Allergy/AdvReac Type Severity Reaction Status Date / Time No Known Allergies Allergy Verified 12/29/16 13:35 Date of admission: 09/01/17 18:45 Primary care physician: Rosa Clarke Consults: 09/03/17 10:13 Consult to Tactical Intelligence Officer [CONS] Routine Reason for SW Consult: nurse consult - pt has transportation concerns to followup appt @ [facility] 09/03/17 15:12 Consult to Occupational Therapy [CONS] Routine Comment: Evaluate, develop and implement POC Reason for Consult: d/c planning Does patient have active BEDREST order?: No Is patient medically & hemodynamically stable?: Yes Consult to Physical Therapy [CONS] Routine Comment: Evaluate, develop and implement POC Reason for Consult: d/c planning Does patient have active BEDREST order?: No Is patient medically & hemodynamically stable?: Yes 09/03/17 15:13 Consult to Nutrition [CONS] Routine Comment: Consulting Provider: NUTRITION Reason for Dietary Consult: Other Other:: low sodium diet education Discharging clinician: Gasper Aldrich - Constitutional Vitals: Temp Pulse Resp BP Pulse Ox 97.4 F L 70 18 130/68 95 09/05/17 11:32 09/05/17 11:32 09/05/17 11:32 09/05/17 11:32 09/05/17 11:32 General appearance: Present: A&O X 3, morbidly obese, no acute distress, answers questions appropriately - Head Head exam: Present: atraumatic, normocephalic - Eye Eye exam: Present: PERRL, conjuntiva pink, sclera anicteric Pupils: Present: PERRL - Neck Neck exam general surgery: Present: supple, trachea midline. Absent: lymphadenopathy - Respiratory Respiratory exam: Present: decreased breath sounds - Cardiovascular Cardiovascular exam: Present: RRR, +S1, +S2. Absent: diastolic murmur, gallop, rubs, systolic murmur - GI/Abdominal GI/Abdominal exam: Present: normal bowel sounds, soft, no peritoneal signs. Absent: distended, tenderness - Extremities Exam Extremities exam: Present: pedal edema, warm, radial pulses palpable and symmetrical. Absent: calf tenderness, cyanotic - Neurological Exam Neurological exam: Present: CN II-XII intact, oriented X3, no focal deficits. Absent: pronater drift, facial droop, speech deficit - Skin Skin exam: Present: dry, intact - Patient Status Disposition: Home, Self-Care Condition: Good Functional capacity at discharge: independent ambulation Overall status at discharge: patient is back to baseline - Ambulatory Orders Ambulatory Orders: Basic Metabolic Panel [CHEM] Time Frame: 3 Days, Facility: [facility], Location: Lab - Discharge Instructions Instructions: Heart Failure (DC) Follow Up With: Rosa Clarke MD [Primary Care Provider] - 09/16/17 10:00 am Additional Instructions: WEIGH YOURSELF EVERY MORNING CHECK YOUR BLOOD PRESSURE AND HEART RATE DAILY LIMIT FLUID INTAKE EAT HEART HEALTHY FOODS AND LIMIT SALT INTAKE KEEP ALL APPOINTMENTS TAKE MEDICATIONS PRESCRIBED - Diet and Activity Activity: as per physical therapy Diet: advance to your usual diet
--- NOTE | 2017-09-05 13:51 | Physician Discharge Referral ---
Home Health/Hosp Referral Info Transfer to: Home Health Attending Provider: kayden swanson Provider in Charge Post Discharge: PCP - Diagnosis (1) Acute respiratory failure with hypoxia Priority: Primary Status: Acute (2) Congestive heart failure Priority: Primary Status: Acute (3) Type 2 diabetes mellitus Priority: Secondary Status: Chronic (4) Atrial fibrillation Priority: Secondary Status: Chronic (5) Hypertension Priority: Secondary Status: Chronic (6) COPD (chronic obstructive pulmonary disease) Priority: Secondary Status: Chronic (7) Tobacco abuse Priority: Secondary Status: Chronic - Respiratory Orders Smoking Cessation: Smoking cessation has been advised. For more information, call the [place] Tobacco Quit Line at 8-039-HHFO-NOW. - Diet/Nutrition Diet/Nutrition Orders: Cardiac - Activity Activity Orders: Up ad zoe - Services Needed Following services are medically necessary services: Home Health Aide - Transfer Medications Prescriptions: Lisinopril 2.5 mg PO DAILY 30 Days #30 tablet Home Medications: Aspirin Enteric Coated [Aspirin EC] 81 mg PO DAILY 01/22/15 [History] Metformin [Glucophage] 500 mg PO HS 01/22/15 [History] Cholecalciferol (Vitamin D3) [Vitamin D3] 5,000 unit PO DAILY 07/26/15 [History] rOPINIRole [Requip] 1 mg PO HS 07/26/15 [History] Atorvastatin [Lipitor] 10 mg PO HS 06/20/17 [History] Citalopram Hydrobromide [Citalopram HBr] 10 mg PO DAILY 06/20/17 [History] Multivitamin,Stress Formula/Zn [Stress B with Zinc Tablet] 1 each PO DAILY 06/20 [History] Polyethylene Glycol 3350 [MiraLAX] 17 gm PO DAILY 06/20/17 [History] Ranitidine Oral Soln [Zantac] 75 mg PO DAILY 06/20/17 [History] Albuterol Neb [Proventil Neb] 2.5 mg IH Q6H PRN 09/01/17 [History] Albuterol Sulfate [Ventolin Hfa] 2 puff IH Q6H PRN 09/01/17 [History] Cyclosporine [Restasis] 1 each OP BID 09/01/17 [History] Furosemide [Lasix] 40 mg PO BID 09/01/17 [History] Hydrocortisone [Cortef] 5 mg PO 09/01/17 [History] Metoprolol [Lopressor] 25 mg PO BID 09/01/17 [History] Olopatadine HCl [Pataday] 2.5 ml OP 09/01/17 [History] Propylene Glycol/Peg 400 [Systane 0.3-0.4% Eye Drops] 15 ml OP 09/01/17 [History ] Tramadol HCl [Ultram] 50 mg PO BID PRN 09/01/17 [History] dilTIAZem HCl [Diltiazem ER] 240 mg PO DAILY 09/01/17 [History] Acetaminophen [Tylenol] 650 mg PO Q6HR PRN tablet 09/05/17 [Rx] Citalopram [CeleXA] 10 mg PO DAILY tablet 09/05/17 [Rx] Lisinopril 2.5 mg PO DAILY 30 Days #30 tablet 09/05/17 [Rx] Allergies/Adverse Reactions: 3 Allergy/AdvReac Type Severity Reaction Status Date / Time No Known Allergies Allergy Verified 12/29/16 13:35 Certification: Further, I certify that my clinical findings support that this patient is homebound (i.e. absences from home require considerable and taxing effort and are for medical reasons or worship services or infrequently or short duration when for other reasons) because: Homebound Reason: Patient requires assistance of a person or device to safely leave home Attestation: My signature below is to certify that this patient is under my care and that I, or nurse practitioner, or a physician's orthotics assistant working with me, has a face-to -face encounter with this patient.
== END 2017-09-05 16:23 | disposition home or self-care (01) | DRG 291 ==
LOC: 3NENU 13:13 → EMEROO 13:13 → 3NENU 20:13
PROVIDERS: ADMIT Internal Medicine; ATTEND Internal Medicine

== ENCOUNTER 2019-01-11 12:12 | Observation (INO) ==
[2019-01-11 13:03] LABS: Basophils % 0.1 %; Eosinophils % 0.1 %; Hematocrit 34.2 % (35.3-44.9); Hemoglobin 11.1 g/dL (11.5-15.4); Immature Granulocytes % 0.7 % (0-4); Lymphocytes # 1.1 K/mcL (0.6-4.6); Lymphocytes % 6.8 %; Mean Corpuscular HGB Conc 32.5 g/dL (31.6-35.5); Mean Corpuscular Hemoglobin 27.2 pg (28.0-33.3); Mean Corpuscular Volume 83.8 fL (83.0-100.0); Mean Platelet Volume 10.2 fL (9.4-12.4); Monocytes % 5.8 %; Platelet Count 243 K/mcL (140-400); Red Blood Count 4.08 M/mcL (3.82-4.97); Red Cell Distribution Width 15.3 % (11.5-14.5); Segmented Neutrophils % 86.5 %
[2019-01-11 13:06] LABS: Monocytes # 0.9 K/mcL (0.0-1.3); White Blood Count 16.2 K/mcL (4.3-11.1)
[2019-01-11 13:21] LABS: BUN/Creatinine Ratio 28 (6-26); Blood Urea Nitrogen 33 mg/dL (8-23); Calcium 9.5 mg/dL (8.6-10.3); Carbon Dioxide 29 mEq/L (23-29); Chloride 100 mEq/L (98-107); Glucose 103 mg/dL (70-105); Osmolality,Calculated 296 (280-300); Potassium 3.9 mEq/L (3.5-5.1); Sodium 139 mEq/L (136-145); Troponin I < 0.03 ng/mL (< 0.04); eGFR For African Americans 52 (> 60); eGFR For Non-African Americans 43 (> 60)
[2019-01-11 14:06] LABS: Bilirubin,Urine Negative (Negative); Blood,Urine Negative (Negative); Clarity,Urine Clear (Clear); Color,Urine Yellow (Yellow); Glucose,Urine (UA) Normal (Normal); Ketones,Urine Negative (Negative); Leukocyte Esterase,Urine Negative (Negative); Nitrite,Urine Negative (Negative); Protein,Urine Negative (Neg-Trace); Urobilinogen,Urine Normal (Normal)
[2019-01-11] MEDS ORDERED: Furosemide 40 MG/4 ML VIAL IVP ONE (14:26)
[2019-01-11] MEDS ORDERED: Ondansetron 4 MG/2 ML VIAL IVP PRN (16:19)
[2019-01-11] MEDS ORDERED: Naloxone 0.4 MG/ML INJ IVP PRN (16:19)
[2019-01-11] MEDS ORDERED: D5% in Water 1,000 ML IVC PRN (16:29)
[2019-01-11] MEDS ORDERED: *HR* Dextrose 50 % in Water (Syg) 50 ML SYRINGE IVP PRN (16:29)
[2019-01-11] MEDS ORDERED: Dextrose Gel 15 GM/37.5 ML TUBE PO PRN ×2 (16:29)
[2019-01-11] MEDS: Insulin LISPRO 300 UNITS/3 ML VIAL SQ SCH (17:55)
[2019-01-11] MEDS: Ipratropium/Albuterol Neb 3 ML IH SCH ×2 (17:58→22:09)
[2019-01-11] MEDS: methylPREDNISolone 125 MG/2 ML VIAL IVP SCH (18:05)
[2019-01-11] MEDS: Azithromycin 500 MG in D5% in Water 250 ML IVPB SCH (18:06)
[2019-01-11] MEDS ORDERED: Insulin LISPRO 300 UNITS/3 ML VIAL SQ SCH (21:00)
[2019-01-11] MEDS ORDERED: Doxycycline 100 MG CAPSULE PO SCH (21:00)
[2019-01-11] MEDS: Furosemide 40 MG TABLET PO SCH (22:01)
[2019-01-11] MEDS: rOPINIRole 1 MG TABLET PO SCH (22:01)
[2019-01-11] MEDS: *HR* Heparin 5,000 UNIT/ML VIAL SQ SCH (22:01)
[2019-01-12] MEDS: methylPREDNISolone 125 MG/2 ML VIAL IVP SCH ×2 (00:44→05:26)
[2019-01-12] MEDS: Ipratropium/Albuterol Neb 3 ML IH SCH ×4 (04:02→22:13)
[2019-01-12 04:51] LABS: Basophils % 0.1 %; Hematocrit 34.1 % (35.3-44.9); Hemoglobin 11.1 g/dL (11.5-15.4); Immature Granulocytes % 0.5 % (0-4); Lymphocytes # 0.4 K/mcL (0.6-4.6); Lymphocytes % 4.4 %; Mean Corpuscular HGB Conc 32.6 g/dL (31.6-35.5); Mean Corpuscular Hemoglobin 27.8 pg (28.0-33.3); Mean Corpuscular Volume 85.3 fL (83.0-100.0); Mean Platelet Volume 10.1 fL (9.4-12.4); Monocytes # 0.1 K/mcL (0.0-1.3); Monocytes % 0.5 %; Neutrophils # 9.4 K/mcL (1.6-8.9); Platelet Count 211 K/mcL (140-400); Red Cell Distribution Width 15.1 % (11.5-14.5); Segmented Neutrophils % 94.5 %
[2019-01-12 05:12] LABS: Calcium 8.9 mg/dL (8.6-10.3); Magnesium 2.2 mg/dL (1.6-2.6); Potassium 3.3 mEq/L (3.5-5.1)
[2019-01-12] MEDS: *HR* Heparin 5,000 UNIT/ML VIAL SQ SCH ×3 (05:27→21:40)
[2019-01-12] MEDS: DilTIAZem CD (24hr) 180 MG CAP.ER.24H PO SCH (08:58)
[2019-01-12] MEDS: Furosemide 40 MG TABLET PO SCH ×2 (08:58→17:10)
[2019-01-12] MEDS: Famotidine 20 MG TABLET PO SCH (08:59)
[2019-01-12] MEDS: Aspirin Enteric Coated 81 MG Tablet PO SCH (08:59)
[2019-01-12] MEDS ORDERED: cefTRIAXone 1,000 MG in Water for inj. (sterile) 10 ML IVP SCH (09:00)
[2019-01-12] MEDS: Insulin LISPRO 300 UNITS/3 ML VIAL SQ SCH ×3 (09:00→17:10)
[2019-01-12] MEDS ORDERED: Insulin LISPRO 300 UNITS/3 ML VIAL SQ SCH ×2 (11:55→21:00)
[2019-01-12] MEDS: Azithromycin 500 MG in D5% in Water 250 ML IVPB SCH (17:09)
[2019-01-12] MEDS: MethylPREDNISolone 40 MG/ML VIAL IVP SCH (17:10)
[2019-01-12] MEDS: rOPINIRole 1 MG TABLET PO SCH (21:39)
[2019-01-13] MEDS: Ipratropium/Albuterol Neb 3 ML IH SCH ×2 (03:58→10:44)
[2019-01-13] MEDS: *HR* Heparin 5,000 UNIT/ML VIAL SQ SCH ×2 (06:08→14:44)
[2019-01-13] MEDS: MethylPREDNISolone 40 MG/ML VIAL IVP SCH (06:08)
[2019-01-13] MEDS: Aspirin Enteric Coated 81 MG Tablet PO SCH (07:47)
[2019-01-13] MEDS: DilTIAZem CD (24hr) 180 MG CAP.ER.24H PO SCH (07:47)
[2019-01-13] MEDS: Famotidine 20 MG TABLET PO SCH (07:48)
[2019-01-13] MEDS: Insulin LISPRO 300 UNITS/3 ML VIAL SQ SCH ×2 (07:48→11:59)
[2019-01-13] MEDS: Furosemide 40 MG TABLET PO SCH (07:48)
[2019-01-13 11:47] VITALS: BP 125/65
== END 2019-01-13 15:56 | disposition home or self-care (01) ==
LOC: EMEROOARM 12:12 → 3BNU 12:12 → SUATTDRO 15:11 → 3BNU 16:37
PROVIDERS: ADMIT Internal Medicine; ATTEND Family Medicine

== ENCOUNTER 2019-03-17 07:35 | Inpatient (IN) ==
[2019-03-17] MEDS ORDERED: Ipratropium/Albuterol Neb 3 ML IH ONE (07:43)
[2019-03-17] MEDS ORDERED: methylPREDNISolone 125 MG/2 ML VIAL IVP ONE (07:43)
[2019-03-17 08:26] LABS: Basophils % 0.2 %; Eosinophils % 0.3 %; Hematocrit 35.3 % (35.3-44.9); Hemoglobin 11.2 g/dL (11.5-15.4); Immature Granulocytes % 0.7 % (0-4); Lymphocytes # 1.1 K/mcL (0.6-4.6); Mean Corpuscular HGB Conc 31.7 g/dL (31.6-35.5); Mean Corpuscular Hemoglobin 27.3 pg (28.0-33.3); Mean Corpuscular Volume 85.9 fL (83.0-100.0); Mean Platelet Volume 9.6 fL (9.4-12.4); Monocytes # 0.6 K/mcL (0.0-1.3); Monocytes % 4.2 %; Neutrophils # 12.3 K/mcL (1.6-8.9); Platelet Count 188 K/mcL (140-400); Red Blood Count 4.11 M/mcL (3.82-4.97); Red Cell Distribution Width 14.4 % (11.5-14.5); Segmented Neutrophils % 86.6 %; White Blood Count 14.2 K/mcL (4.3-11.1)
[2019-03-17 08:45] LABS: BUN/Creatinine Ratio 34 (6-26); Blood Urea Nitrogen 27 mg/dL (8-23); Carbon Dioxide 27 mEq/L (23-29); Chloride 104 mEq/L (98-107); Glucose 126 mg/dL (70-105); Osmolality,Calculated 291 (280-300); Potassium 3.7 mEq/L (3.5-5.1); Sodium 137 mEq/L (136-145); eGFR For African Americans > 60 (> 60); eGFR For Non-African Americans > 60 (> 60)
[2019-03-17] MEDS ORDERED: Azithromycin 500 MG in D5% in Water 250 ML IVPB ONE (10:20)
[2019-03-17] MEDS ORDERED: *HR* LORazepam 0.5 MG TABLET PO ONE (10:37)
[2019-03-17] MEDS ORDERED: Albuterol Neb 1.25 MG/3 ML VIAL IH ONE (10:37)
[2019-03-17] MEDS ORDERED: Naloxone 0.4 MG/ML INJ IVP PRN (11:02)
[2019-03-17] MEDS ORDERED: Ondansetron 4 MG/2 ML VIAL IVP PRN (11:02)
[2019-03-17] MEDS ORDERED: Levalbuterol Neb 0.63 MG/3 ML IH PRN (11:13)
[2019-03-17] MEDS ORDERED: Ipratropium 1 PUFF INHALER IH PRN (11:13)
[2019-03-17] MEDS ORDERED: Dextrose Gel 15 GM/37.5 ML TUBE PO PRN ×2 (11:15)
[2019-03-17] MEDS ORDERED: *HR* Dextrose 50 % in Water (Syg) 50 ML SYRINGE IVP PRN (11:15)
[2019-03-17] MEDS ORDERED: D5% in Water 1,000 ML IVC PRN (11:15)
[2019-03-17] MEDS ORDERED: Furosemide 40 MG/4 ML VIAL IVP ONE (11:32)
[2019-03-17 11:39] LABS: Estimated Average Glucose 143 mg/dl
[2019-03-17] MEDS: *HR* Heparin 5,000 UNIT/ML VIAL SQ SCH ×2 (12:47→21:33)
[2019-03-17] MEDS: Furosemide 40 MG TABLET PO SCH (12:48)
[2019-03-17] MEDS: Insulin LISPRO 300 UNITS/3 ML VIAL SQ SCH ×3 (12:49→21:34)
[2019-03-17] MEDS: MethylPREDNISolone 40 MG/ML VIAL IVP SCH (15:28)
[2019-03-17] MEDS: Ipratropium 1 PUFF INHALER IH SCH ×3 (15:58→20:55)
[2019-03-17] MEDS: Levalbuterol Neb 0.63 MG/3 ML IH SCH ×2 (16:09→20:55)
[2019-03-17] MEDS: rOPINIRole 1 MG TABLET PO SCH (20:29)
[2019-03-17] MEDS: Insulin DETEMIR 100 UNIT/ML X5UNITS SQ SCH (21:34)
[2019-03-17] MEDS: Nystatin POWDER 30 GM BOTTLE TP SCH (21:34)
[2019-03-18] MEDS: Ipratropium 1 PUFF INHALER IH SCH ×4 (00:23→11:08)
[2019-03-18] MEDS: MethylPREDNISolone 40 MG/ML VIAL IVP SCH ×3 (00:26→16:36)
[2019-03-18 02:17] LABS: BUN/Creatinine Ratio 26 (6-26); Blood Urea Nitrogen 25 mg/dL (8-23); Calcium 9.2 mg/dL (8.6-10.3); Carbon Dioxide 29 mEq/L (23-29); Chloride 102 mEq/L (98-107); Glucose 165 mg/dL (70-105); Osmolality,Calculated 294 (280-300); Potassium 4.1 mEq/L (3.5-5.1); Sodium 138 mEq/L (136-145); eGFR For African Americans > 60 (> 60); eGFR For Non-African Americans 56 (> 60)
[2019-03-18 02:21] LABS: Basophils % 0.1 %; Hematocrit 33.7 % (35.3-44.9); Hemoglobin 11.1 g/dL (11.5-15.4); Immature Granulocytes % 0.8 % (0-4); Lymphocytes # 0.5 K/mcL (0.6-4.6); Lymphocytes % 3.8 %; Mean Corpuscular HGB Conc 32.9 g/dL (31.6-35.5); Mean Corpuscular Hemoglobin 27.3 pg (28.0-33.3); Mean Corpuscular Volume 82.8 fL (83.0-100.0); Mean Platelet Volume 10.3 fL (9.4-12.4); Monocytes # 0.1 K/mcL (0.0-1.3); Neutrophils # 11.5 K/mcL (1.6-8.9); Platelet Count 217 K/mcL (140-400); Red Blood Count 4.07 M/mcL (3.82-4.97); Red Cell Distribution Width 14.3 % (11.5-14.5); Segmented Neutrophils % 94.3 %; White Blood Count 12.2 K/mcL (4.3-11.1)
[2019-03-18 02:22] LABS: INR 1.2; Prothrombin Time 13.3 Seconds (9.4-12.1)
[2019-03-18] MEDS: Levalbuterol Neb 0.63 MG/3 ML IH SCH ×4 (03:48→22:17)
[2019-03-18] MEDS: *HR* Heparin 5,000 UNIT/ML VIAL SQ SCH ×3 (05:19→22:07)
[2019-03-18] MEDS: Insulin LISPRO 300 UNITS/3 ML VIAL SQ SCH ×4 (07:35→20:18)
[2019-03-18] MEDS: Azithromycin 250 MG TABLET PO SCH (08:24)
[2019-03-18] MEDS: Diltiazem CD (24hr) 180 MG CAPSULE PO SCH (08:25)
[2019-03-18] MEDS: Furosemide 40 MG TABLET PO SCH ×2 (08:27→16:36)
[2019-03-18] MEDS: Aspirin Enteric Coated 81 MG Tablet PO SCH (08:28)
[2019-03-18] MEDS: Nystatin POWDER 30 GM BOTTLE TP SCH ×2 (08:28→20:18)
[2019-03-18] MEDS: Cholecalciferol (D-3) 1,000 UNIT (25MCG) TABLET PO SCH (10:30)
[2019-03-18] MEDS: Vitamin B Complex/Vit C/Vit E 1 EACH TABLET PO SCH (10:30)
[2019-03-18] MEDS: Famotidine 20 MG TABLET PO SCH (10:33)
[2019-03-18] MEDS ORDERED: Azithromycin 500 MG in 0.9 % Sodium Chloride 250 ML IVPB SCH (12:00)
[2019-03-18] MEDS: Ipratropium Neb 0.5 MG NEBULIZER IH SCH ×2 (15:37→22:17)
[2019-03-18] MEDS: rOPINIRole 1 MG TABLET PO SCH (20:18)
[2019-03-18] MEDS: Insulin DETEMIR 100 UNIT/ML X5UNITS SQ SCH (20:18)
[2019-03-19] MEDS: MethylPREDNISolone 40 MG/ML VIAL IVP SCH ×2 (00:04→09:43)
[2019-03-19 01:32] LABS: Hematocrit 32.6 % (35.3-44.9); Hemoglobin 10.6 g/dL (11.5-15.4); Mean Corpuscular HGB Conc 32.5 g/dL (31.6-35.5); Mean Corpuscular Hemoglobin 27.3 pg (28.0-33.3); Platelet Count 205 K/mcL (140-400); Red Blood Count 3.88 M/mcL (3.82-4.97); Red Cell Distribution Width 14.4 % (11.5-14.5); White Blood Count 16.7 K/mcL (4.3-11.1)
[2019-03-19 01:44] LABS: BUN/Creatinine Ratio 34 (6-26); Blood Urea Nitrogen 36 mg/dL (8-23); Calcium 8.7 mg/dL (8.6-10.3); Carbon Dioxide 29 mEq/L (23-29); Chloride 96 mEq/L (98-107); Glucose 188 mg/dL (70-105); Osmolality,Calculated 295 (280-300); Potassium 3.9 mEq/L (3.5-5.1); Sodium 136 mEq/L (136-145); eGFR For African Americans > 60 (> 60); eGFR For Non-African Americans 50 (> 60)
[2019-03-19] MEDS: Ipratropium Neb 0.5 MG NEBULIZER IH SCH ×4 (04:29→21:22)
[2019-03-19] MEDS: Levalbuterol Neb 0.63 MG/3 ML IH SCH ×4 (04:29→21:22)
[2019-03-19] MEDS: *HR* Heparin 5,000 UNIT/ML VIAL SQ SCH ×3 (05:22→21:35)
[2019-03-19] MEDS: Insulin LISPRO 300 UNITS/3 ML VIAL SQ SCH ×4 (09:36→21:37)
[2019-03-19] MEDS: Cholecalciferol (D-3) 1,000 UNIT (25MCG) TABLET PO SCH (09:43)
[2019-03-19] MEDS: Azithromycin 250 MG TABLET PO SCH (09:43)
[2019-03-19] MEDS: Aspirin Enteric Coated 81 MG Tablet PO SCH (09:43)
[2019-03-19] MEDS: Famotidine 20 MG TABLET PO SCH (09:43)
[2019-03-19] MEDS: Diltiazem CD (24hr) 180 MG CAPSULE PO SCH (09:43)
[2019-03-19] MEDS: Furosemide 40 MG TABLET PO SCH ×2 (09:44→15:04)
[2019-03-19] MEDS: Vitamin B Complex/Vit C/Vit E 1 EACH TABLET PO SCH (09:44)
[2019-03-19] MEDS: Nystatin POWDER 30 GM BOTTLE TP SCH ×2 (09:45→21:36)
[2019-03-19] MEDS: predniSONE 20 MG TABLET PO SCH (12:39)
[2019-03-19] MEDS: rOPINIRole 1 MG TABLET PO SCH (21:35)
[2019-03-19] MEDS: Insulin DETEMIR 100 UNIT/ML X5UNITS SQ SCH (21:36)
[2019-03-20] MEDS: Levalbuterol Neb 0.63 MG/3 ML IH SCH ×4 (04:40→22:31)
[2019-03-20] MEDS: Ipratropium Neb 0.5 MG NEBULIZER IH SCH ×4 (04:40→22:31)
[2019-03-20] MEDS: *HR* Heparin 5,000 UNIT/ML VIAL SQ SCH ×3 (05:30→21:34)
[2019-03-20 07:04] LABS: Hematocrit 35.5 % (35.3-44.9); Hemoglobin 11.6 g/dL (11.5-15.4); Mean Corpuscular HGB Conc 32.7 g/dL (31.6-35.5); Mean Corpuscular Hemoglobin 27.2 pg (28.0-33.3); Mean Corpuscular Volume 83.3 fL (83.0-100.0); Platelet Count 215 K/mcL (140-400); Red Blood Count 4.26 M/mcL (3.82-4.97); Red Cell Distribution Width 14.2 % (11.5-14.5)
[2019-03-20 07:19] LABS: BUN/Creatinine Ratio 38 (6-26); Blood Urea Nitrogen 38 mg/dL (8-23); Carbon Dioxide 35 mEq/L (23-29); Chloride 94 mEq/L (98-107); Glucose 130 mg/dL (70-105); Osmolality,Calculated 299 (280-300); Potassium 3.5 mEq/L (3.5-5.1); Sodium 139 mEq/L (136-145); eGFR For African Americans > 60 (> 60); eGFR For Non-African Americans 53 (> 60)
[2019-03-20] MEDS: Insulin LISPRO 300 UNITS/3 ML VIAL SQ SCH ×4 (07:35→21:34)
[2019-03-20] MEDS: Famotidine 20 MG TABLET PO SCH (08:05)
[2019-03-20] MEDS: Vitamin B Complex/Vit C/Vit E 1 EACH TABLET PO SCH (08:05)
[2019-03-20] MEDS: Furosemide 40 MG TABLET PO SCH ×2 (08:05→14:01)
[2019-03-20] MEDS: Diltiazem CD (24hr) 180 MG CAPSULE PO SCH (08:06)
[2019-03-20] MEDS: predniSONE 20 MG TABLET PO SCH (08:06)
[2019-03-20] MEDS: Aspirin Enteric Coated 81 MG Tablet PO SCH (08:06)
[2019-03-20] MEDS: Cholecalciferol (D-3) 1,000 UNIT (25MCG) TABLET PO SCH (08:06)
[2019-03-20] MEDS: Azithromycin 250 MG TABLET PO SCH (08:06)
[2019-03-20] MEDS: Nystatin POWDER 30 GM BOTTLE TP SCH ×2 (08:06→21:33)
[2019-03-20] MEDS ORDERED: Insulin DETEMIR 100 UNIT/ML X5UNITS SQ SCH ×2 (21:00)
[2019-03-20] MEDS: rOPINIRole 1 MG TABLET PO SCH (21:33)
[2019-03-21] MEDS: Ipratropium Neb 0.5 MG NEBULIZER IH SCH ×2 (04:44→10:47)
[2019-03-21] MEDS: Levalbuterol Neb 0.63 MG/3 ML IH SCH ×2 (04:45→10:48)
[2019-03-21] MEDS: *HR* Heparin 5,000 UNIT/ML VIAL SQ SCH (05:21)
[2019-03-21 07:12] VITALS: BP 133/64
[2019-03-21] MEDS: Insulin LISPRO 300 UNITS/3 ML VIAL SQ SCH ×2 (07:40→11:48)
[2019-03-21] MEDS: Furosemide 40 MG TABLET PO SCH (07:40)
[2019-03-21] MEDS: Vitamin B Complex/Vit C/Vit E 1 EACH TABLET PO SCH (07:41)
[2019-03-21] MEDS: Azithromycin 250 MG TABLET PO SCH (07:41)
[2019-03-21] MEDS: Cholecalciferol (D-3) 1,000 UNIT (25MCG) TABLET PO SCH (07:41)
[2019-03-21] MEDS: Aspirin Enteric Coated 81 MG Tablet PO SCH (07:41)
[2019-03-21] MEDS: Diltiazem CD (24hr) 180 MG CAPSULE PO SCH (07:41)
[2019-03-21] MEDS: Famotidine 20 MG TABLET PO SCH (07:41)
[2019-03-21] MEDS: predniSONE 20 MG TABLET PO SCH (07:42)
[2019-03-21] MEDS: Nystatin POWDER 30 GM BOTTLE TP SCH (07:42)
== END 2019-03-21 12:09 | disposition home health service (06) | DRG 291 ==
LOC: EMEROOARM 07:35 → 3BNU 07:35
PROVIDERS: ADMIT Internal Medicine; ATTEND Internal Medicine

== ENCOUNTER 2019-07-04 20:02 | Inpatient (IN) ==
[~2019-07-04 20:02] MED LIST: *HR* HYDROmorphone (PF) 1 MG/ML SYRINGE IVP PRN
[2019-07-04] MEDS ORDERED: Acetaminophen 325 MG TABLET PO PRN (23:19)
[2019-07-04] MEDS ORDERED: Naloxone 0.4 MG/ML INJ IVP PRN (23:19)
[2019-07-04] MEDS ORDERED: Dextrose Gel 15 GM/37.5 ML TUBE PO PRN ×2 (23:56)
[2019-07-04] MEDS ORDERED: *HR* Dextrose 50 % in Water (Syg) 50 ML SYRINGE IVP PRN (23:56)
[2019-07-04] MEDS ORDERED: D5% in Water 1,000 ML IVC PRN (23:56)
[2019-07-05 01:02] LABS: Basophils % 0.3 %; Eosinophils % 0.2 %; Hematocrit 31.4 % (35.3-44.9); Hemoglobin 10.2 g/dL (11.5-15.4); Immature Granulocytes % 0.4 % (0-4); Lymphocytes # 0.9 K/mcL (0.6-4.6); Lymphocytes % 7.7 %; Mean Corpuscular HGB Conc 32.5 g/dL (31.6-35.5); Mean Corpuscular Hemoglobin 27.6 pg (28.0-33.3); Mean Corpuscular Volume 85.1 fL (83.0-100.0); Mean Platelet Volume 9.6 fL (9.4-12.4); Monocytes # 0.5 K/mcL (0.0-1.3); Monocytes % 4.6 %; Neutrophils # 9.8 K/mcL (1.6-8.9); Platelet Count 221 K/mcL (140-400); Red Blood Count 3.69 M/mcL (3.82-4.97); Red Cell Distribution Width 15.3 % (11.5-14.5); Segmented Neutrophils % 86.8 %; White Blood Count 11.3 K/mcL (4.3-11.1)
[2019-07-05 01:22] LABS: Alanine Aminotransferase 12 Units/L (7-52); Albumin 3.6 g/dL (3.5-5.7); Albumin/Globulin Ratio 1.2 (1.1-2.2); Alkaline Phosphatase 64 Units/L (34-104); Aspartate Amino Transferase 12 Units/L (13-39); BUN/Creatinine Ratio 33 (6-26); Bilirubin,Total 0.6 mg/dL (0.3-1.0); Blood Urea Nitrogen 29 mg/dL (8-23); Calcium 9.3 mg/dL (8.6-10.3); Carbon Dioxide 32 mEq/L (23-29); Chloride 99 mEq/L (98-107); Globulin 2.9 g/dL (2.4-3.5); Glucose 141 mg/dL (70-105); Magnesium 1.9 mg/dL (1.6-2.6); Osmolality,Calculated 300 (280-300); Phosphorous 4.7 mg/dL (2.7-4.5); Potassium 4.1 mEq/L (3.5-5.1); Sodium 141 mEq/L (136-145); Total Protein 6.5 g/dL (6.4-8.9); eGFR For African Americans > 60 (> 60); eGFR For Non-African Americans > 60 (> 60)
[2019-07-05] MEDS ORDERED: 0.9 % Sodium Chloride 1,000 ML IV ONE (07:38)
[2019-07-05] MEDS: 0.9 % Sodium Chloride 1,000 ML IVC SCH ×3 (08:06→21:30)
[2019-07-05] MEDS: Insulin LISPRO 300 UNITS/3 ML VIAL SQ SCH ×3 (08:11→21:42)
[2019-07-05] MEDS: *HR* Heparin 5,000 UNIT/ML VIAL SQ SCH ×3 (08:12→21:28)
[2019-07-05] MEDS: Nystatin POWDER 30 GM BOTTLE TP SCH (08:55)
[2019-07-05] MEDS ORDERED: DilTIAZem CD (24hr) 180 MG CAP.ER.24H PO SCH (09:00)
[2019-07-05] MEDS ORDERED: Aspirin Enteric Coated 81 MG Tablet PO SCH (09:00)
[2019-07-05] MEDS ORDERED: Piperacillin/Tazobactam 3.375 GM in 0.9 % Sodium Chloride Mini Bag 100 ML IVP SCH (09:00)
[2019-07-05] MEDS ORDERED: 0.9 % Sodium Chloride 1,000 ML IVC SCH (10:57)
[2019-07-05] MEDS ORDERED: Ipratropium/Albuterol Neb 3 ML IH PRN ×2 (10:57→17:18)
[2019-07-05] MEDS ORDERED: CefOXitin 1,000 MG VIAL ONE (13:11)
[2019-07-05] MEDS ORDERED: Dexamethasone 4 MG/ML VIAL ONE (13:17)
[2019-07-05] MEDS ORDERED: *HR* Succinylcholine 200 MG/10 ML VIAL IVP ONE (13:17)
[2019-07-05] MEDS ORDERED: *HR* Rocuronium Bromide 50 MG/5 ML VIAL ONE (13:17)
[2019-07-05] MEDS ORDERED: Ondansetron 4 MG/2 ML VIAL ONE (13:17)
[2019-07-05] MEDS ORDERED: Lidocaine -MPF 2% 2 ML VIAL ONE (13:17)
[2019-07-05] MEDS ORDERED: *HR* FentaNYL (PF) 100 MCG/2 ML VIAL ONE ×2 (13:18→14:39)
[2019-07-05] MEDS ORDERED: *HR* Propofol 200 MG/20 ML VIAL IVP ONE ×2 (13:18→14:49)
[2019-07-05] MEDS ORDERED: Heparin 1,000 UNITS/500 mL 500 ML ONE (13:25)
[2019-07-05] MEDS ORDERED: Isovue-300 50ML VIAL ONE (13:30)
[2019-07-05] MEDS ORDERED: *HR* Vasopressin 20 UNIT/ML VIAL ONE (13:48)
[2019-07-05] MEDS ORDERED: Ondansetron 4 MG/2 ML VIAL IVP ONE (14:16)
[2019-07-05] MEDS ORDERED: Morphine Sulfate 2 MG/ML SYRINGE IVP PRN (14:16)
[2019-07-05] MEDS ORDERED: Piperacillin/Tazobactam 3.375 GM in 0.9 % Sodium Chloride Mini Bag 100 ML IVPB SCH (16:00)
[2019-07-05] MEDS ORDERED: Dextrose Gel 15 GM/37.5 ML TUBE PO PRN ×2 (17:18)
[2019-07-05] MEDS ORDERED: D5% in Water 1,000 ML IVC PRN (17:18)
[2019-07-05] MEDS ORDERED: *HR* Dextrose 50 % in Water (Syg) 50 ML SYRINGE IVP PRN (17:18)
[2019-07-05] MEDS ORDERED: Naloxone 0.4 MG/ML INJ IVP PRN (17:18)
[2019-07-05] MEDS ORDERED: Insulin LISPRO 300 UNITS/3 ML VIAL SQ SCH (21:00)
[2019-07-05] MEDS ORDERED: rOPINIRole 0.25 MG TABLET PO SCH (21:00)
[2019-07-05] MEDS: rOPINIRole 0.25 MG TABLET PO SCH (21:28)
[2019-07-05] MEDS: Piperacillin/Tazobactam 3.375 GM in 0.9 % Sodium Chloride Mini Bag 100 ML IVPB SCH (21:28)
[2019-07-05] MEDS: *HR* HYDROmorphone (PF) 1 MG/ML SYRINGE IVP PRN (21:50)
[2019-07-05] MEDS ORDERED: *HR* Promethazine 25 MG/ML VIAL IVP PRN (22:41)
[2019-07-06 01:14] LABS: Basophils % 0.1 %; Hematocrit 30.4 % (35.3-44.9); Hemoglobin 9.6 g/dL (11.5-15.4); Immature Granulocytes % 0.5 % (0-4); Lymphocytes # 0.3 K/mcL (0.6-4.6); Lymphocytes % 1.8 %; Mean Corpuscular HGB Conc 31.6 g/dL (31.6-35.5); Mean Corpuscular Hemoglobin 28.1 pg (28.0-33.3); Mean Corpuscular Volume 88.9 fL (83.0-100.0); Mean Platelet Volume 9.8 fL (9.4-12.4); Monocytes # 0.5 K/mcL (0.0-1.3); Monocytes % 2.5 %; Neutrophils # 17.5 K/mcL (1.6-8.9); Platelet Count 206 K/mcL (140-400); Red Blood Count 3.42 M/mcL (3.82-4.97); Red Cell Distribution Width 15.3 % (11.5-14.5); Segmented Neutrophils % 95.1 %
[2019-07-06 01:17] LABS: White Blood Count 18.4 K/mcL (4.3-11.1)
[2019-07-06 01:25] LABS: BUN/Creatinine Ratio 26 (6-26); Blood Urea Nitrogen 21 mg/dL (8-23); Carbon Dioxide 26 mEq/L (23-29); Chloride 106 mEq/L (98-107); Glucose 213 mg/dL (70-105); Magnesium 1.8 mg/dL (1.6-2.6); Osmolality,Calculated 303 (280-300); Potassium 4.3 mEq/L (3.5-5.1); Sodium 142 mEq/L (136-145); eGFR For African Americans > 60 (> 60); eGFR For Non-African Americans > 60 (> 60)
[2019-07-06] MEDS: Acetaminophen 325 MG TABLET PO PRN ×3 (01:54→14:28)
[2019-07-06] MEDS: 0.9 % Sodium Chloride 1,000 ML IVC SCH (01:54)
[2019-07-06] MEDS: *HR* Heparin 5,000 UNIT/ML VIAL SQ SCH ×2 (05:55→13:15)
[2019-07-06] MEDS: Piperacillin/Tazobactam 3.375 GM in 0.9 % Sodium Chloride Mini Bag 100 ML IVPB SCH ×3 (05:55→20:09)
[2019-07-06] MEDS: *HR* HYDROmorphone (PF) 1 MG/ML SYRINGE IVP PRN ×4 (06:12→23:00)
[2019-07-06] MEDS: Insulin LISPRO 300 UNITS/3 ML VIAL SQ SCH ×4 (08:16→20:12)
[2019-07-06] MEDS: Aspirin Enteric Coated 81 MG Tablet PO SCH (08:25)
[2019-07-06] MEDS: DilTIAZem CD (24hr) 180 MG CAP.ER.24H PO SCH (08:26)
[2019-07-06] MEDS: Cholecalciferol (D-3) 1,000 UNIT (25MCG) TABLET PO SCH (08:26)
[2019-07-06] MEDS: Multivit/Ca/Min/Fe/FA 1 TAB TABLET PO SCH (08:26)
[2019-07-06] MEDS ORDERED: Cholecalciferol (D-3) 1,000 UNIT (25MCG) TABLET PO SCH (09:00)
[2019-07-06] MEDS ORDERED: Multivit/Ca/Min/Fe/FA 1 TAB TABLET PO SCH (09:00)
[2019-07-06 09:33] LABS: Estimated Average Glucose 123 mg/dl
[2019-07-06 10:03] LABS: Immature Granulocytes % 0.5 % (0-4); Lymphocytes % 4.5 %; Mean Platelet Volume 9.8 fL (9.4-12.4)
[2019-07-06 10:09] LABS: Basophils % 0.1 %; Hematocrit 33.8 % (35.3-44.9); Hemoglobin 10.1 g/dL (11.5-15.4); Immature Platelets 1.8 % (1.1-6.1); Lymphocytes # 0.8 K/mcL (0.6-4.6); Mean Corpuscular HGB Conc 29.9 g/dL (31.6-35.5); Mean Corpuscular Hemoglobin 27.7 pg (28.0-33.3); Mean Corpuscular Volume 92.9 fL (83.0-100.0); Monocytes % 6.1 %; Neutrophils # 14.9 K/mcL (1.6-8.9); Platelet Count 196 K/mcL (140-400); Red Blood Count 3.64 M/mcL (3.82-4.97); Red Cell Distribution Width 15.3 % (11.5-14.5); Segmented Neutrophils % 88.8 %; White Blood Count 16.8 K/mcL (4.3-11.1)
[2019-07-06 10:40] LABS: Platelet Estimate Normal (Normal)
[2019-07-06] MEDS: Furosemide 40 MG/4 ML VIAL IVP SCH (17:24)
[2019-07-06 19:55] LABS: Basophils % 0.1 %; Eosinophils % 0.1 %; Hematocrit 29.3 % (35.3-44.9); Hemoglobin 9.4 g/dL (11.5-15.4); Immature Granulocytes % 0.4 % (0-4); Lymphocytes # 0.9 K/mcL (0.6-4.6); Lymphocytes % 5.1 %; Mean Corpuscular HGB Conc 32.1 g/dL (31.6-35.5); Mean Corpuscular Hemoglobin 27.8 pg (28.0-33.3); Mean Corpuscular Volume 86.7 fL (83.0-100.0); Mean Platelet Volume 9.6 fL (9.4-12.4); Monocytes # 1.1 K/mcL (0.0-1.3); Monocytes % 6.1 %; Neutrophils # 15.7 K/mcL (1.6-8.9); Platelet Count 232 K/mcL (140-400); Red Blood Count 3.38 M/mcL (3.82-4.97); Red Cell Distribution Width 15.3 % (11.5-14.5); Segmented Neutrophils % 88.2 %; White Blood Count 17.8 K/mcL (4.3-11.1)
[2019-07-06] MEDS: rOPINIRole 0.25 MG TABLET PO SCH (20:09)
[2019-07-06] MEDS: Budesonide/Formoterol 160/4.5 1 PUFF INH IH SCH (22:28)
[2019-07-07 04:33] LABS: Eosinophils % 0.1 %; Immature Granulocytes % 0.4 % (0-4); Lymphocytes % 6.9 %; Mean Corpuscular HGB Conc 30.8 g/dL (31.6-35.5); Mean Corpuscular Hemoglobin 27.6 pg (28.0-33.3); Mean Corpuscular Volume 89.7 fL (83.0-100.0); Monocytes % 6.7 %; Platelet Count 182 K/mcL (140-400); Red Cell Distribution Width 15.3 % (11.5-14.5); Segmented Neutrophils % 85.7 %; White Blood Count 13.4 K/mcL (4.3-11.1)
[2019-07-07 04:34] LABS: Basophils % 0.2 %; Lymphocytes # 0.9 K/mcL (0.6-4.6); Monocytes # 0.9 K/mcL (0.0-1.3); Neutrophils # 11.5 K/mcL (1.6-8.9)
[2019-07-07 04:47] LABS: BUN/Creatinine Ratio 31 (6-26); Blood Urea Nitrogen 26 mg/dL (8-23); Calcium 8.8 mg/dL (8.6-10.3); Carbon Dioxide 28 mEq/L (23-29); Chloride 104 mEq/L (98-107); Glucose 138 mg/dL (70-105); Magnesium 1.7 mg/dL (1.6-2.6); Osmolality,Calculated 293 (280-300); Potassium 4.1 mEq/L (3.5-5.1); Sodium 138 mEq/L (136-145); eGFR For African Americans > 60 (> 60); eGFR For Non-African Americans > 60 (> 60)
[2019-07-07] MEDS: Piperacillin/Tazobactam 3.375 GM in 0.9 % Sodium Chloride Mini Bag 100 ML IVPB SCH ×3 (05:28→20:03)
[2019-07-07] MEDS: Furosemide 40 MG/4 ML VIAL IVP SCH ×2 (09:18→17:32)
[2019-07-07] MEDS: Insulin LISPRO 300 UNITS/3 ML VIAL SQ SCH ×4 (09:18→20:19)
[2019-07-07] MEDS: DilTIAZem CD (24hr) 180 MG CAP.ER.24H PO SCH (09:19)
[2019-07-07] MEDS: Multivit/Ca/Min/Fe/FA 1 TAB TABLET PO SCH (09:19)
[2019-07-07] MEDS: Aspirin Enteric Coated 81 MG Tablet PO SCH (09:19)
[2019-07-07] MEDS: Cholecalciferol (D-3) 1,000 UNIT (25MCG) TABLET PO SCH (09:19)
[2019-07-07] MEDS: Acetaminophen 325 MG TABLET PO PRN ×2 (09:30→19:18)
[2019-07-07] MEDS: Budesonide/Formoterol 160/4.5 1 PUFF INH IH SCH ×2 (10:50→20:20)
[2019-07-07] MEDS: Tiotropium 18 MCG inhalation IH SCH (10:50)
[2019-07-07 15:35] LABS: Hematocrit 27.9 % (35.3-44.9); Hemoglobin 8.6 g/dL (11.5-15.4)
[2019-07-07] MEDS: rOPINIRole 0.25 MG TABLET PO SCH (20:03)
[2019-07-07 22:30] LABS: Hematocrit 23.8 % (35.3-44.9); Hemoglobin 7.5 g/dL (11.5-15.4)
[2019-07-08] MEDS: Piperacillin/Tazobactam 3.375 GM in 0.9 % Sodium Chloride Mini Bag 100 ML IVPB SCH ×3 (04:23→22:19)
[2019-07-08 05:05] LABS: Basophils % 0.3 %; Eosinophils # 0.1 K/mcL (0.0-0.6); Hematocrit 23.9 % (35.3-44.9); Hemoglobin 7.5 g/dL (11.5-15.4); Immature Granulocytes % 0.6 % (0-4); Lymphocytes # 1.1 K/mcL (0.6-4.6); Lymphocytes % 11.2 %; Mean Corpuscular HGB Conc 31.4 g/dL (31.6-35.5); Mean Corpuscular Hemoglobin 27.5 pg (28.0-33.3); Mean Corpuscular Volume 87.5 fL (83.0-100.0); Mean Platelet Volume 9.7 fL (9.4-12.4); Monocytes # 0.6 K/mcL (0.0-1.3); Monocytes % 6.1 %; Platelet Count 157 K/mcL (140-400); Red Blood Count 2.73 M/mcL (3.82-4.97); Red Cell Distribution Width 15.2 % (11.5-14.5); Segmented Neutrophils % 80.8 %; White Blood Count 9.9 K/mcL (4.3-11.1)
[2019-07-08 05:32] LABS: BUN/Creatinine Ratio 29 (6-26); Blood Urea Nitrogen 25 mg/dL (8-23); Calcium 8.5 mg/dL (8.6-10.3); Carbon Dioxide 28 mEq/L (23-29); Chloride 102 mEq/L (98-107); Glucose 124 mg/dL (70-105); Osmolality,Calculated 290 (280-300); Sodium 137 mEq/L (136-145); eGFR For African Americans > 60 (> 60); eGFR For Non-African Americans > 60 (> 60)
[2019-07-08 05:34] LABS: % Iron Saturation 7 % (15-50); Iron 17 mcg/dL (50-170); Transferrin 176 mg/dL (203-362)
[2019-07-08 05:44] LABS: Ferritin 204 ng/mL (10-120)
[2019-07-08] MEDS: Budesonide/Formoterol 160/4.5 1 PUFF INH IH SCH ×2 (07:27→22:07)
[2019-07-08] MEDS: Tiotropium 18 MCG inhalation IH SCH (07:28)
[2019-07-08] MEDS: Nystatin POWDER 30 GM BOTTLE TP SCH (08:13)
[2019-07-08] MEDS: Insulin LISPRO 300 UNITS/3 ML VIAL SQ SCH ×5 (08:14→22:20)
[2019-07-08] MEDS: DilTIAZem CD (24hr) 180 MG CAP.ER.24H PO SCH (09:59)
[2019-07-08] MEDS: Multivit/Ca/Min/Fe/FA 1 TAB TABLET PO SCH (09:59)
[2019-07-08] MEDS: Aspirin Enteric Coated 81 MG Tablet PO SCH (09:59)
[2019-07-08] MEDS: Cholecalciferol (D-3) 1,000 UNIT (25MCG) TABLET PO SCH (10:04)
[2019-07-08] MEDS: Furosemide 40 MG/4 ML VIAL IVP SCH (10:04)
[2019-07-08] MEDS: Furosemide 40 MG TABLET PO SCH (17:00)
[2019-07-08] MEDS ORDERED: rOPINIRole 0.25 MG TABLET PO SCH ×2 (21:00)
[2019-07-09] MEDS: Piperacillin/Tazobactam 3.375 GM in 0.9 % Sodium Chloride Mini Bag 100 ML IVPB SCH ×2 (05:29→15:54)
[2019-07-09 07:42] LABS: Basophils # 0.1 K/mcL (0.0-0.2); Basophils % 0.7 %; Eosinophils # 0.2 K/mcL (0.0-0.6); Hematocrit 25.4 % (35.3-44.9); Hemoglobin 7.9 g/dL (11.5-15.4); Lymphocytes # 0.9 K/mcL (0.6-4.6); Lymphocytes % 11.4 %; Mean Corpuscular HGB Conc 31.1 g/dL (31.6-35.5); Mean Corpuscular Hemoglobin 27.4 pg (28.0-33.3); Mean Corpuscular Volume 88.2 fL (83.0-100.0); Mean Platelet Volume 9.8 fL (9.4-12.4); Monocytes # 0.5 K/mcL (0.0-1.3); Monocytes % 6.4 %; Neutrophils # 5.9 K/mcL (1.6-8.9); Platelet Count 173 K/mcL (140-400); Red Blood Count 2.88 M/mcL (3.82-4.97); Red Cell Distribution Width 15.3 % (11.5-14.5); Segmented Neutrophils % 77.5 %; White Blood Count 7.6 K/mcL (4.3-11.1)
[2019-07-09] MEDS: Tiotropium 18 MCG inhalation IH SCH (08:16)
[2019-07-09] MEDS: Budesonide/Formoterol 160/4.5 1 PUFF INH IH SCH (08:17)
[2019-07-09] MEDS: Insulin LISPRO 300 UNITS/3 ML VIAL SQ SCH ×3 (10:51→16:15)
[2019-07-09] MEDS: Cholecalciferol (D-3) 1,000 UNIT (25MCG) TABLET PO SCH (10:59)
[2019-07-09] MEDS: DilTIAZem CD (24hr) 180 MG CAP.ER.24H PO SCH (10:59)
[2019-07-09] MEDS: Aspirin Enteric Coated 81 MG Tablet PO SCH (10:59)
[2019-07-09] MEDS: Furosemide 40 MG TABLET PO SCH (10:59)
[2019-07-09] MEDS: Multivit/Ca/Min/Fe/FA 1 TAB TABLET PO SCH (11:00)
[2019-07-09 14:30] VITALS: BP 99/64
== END 2019-07-09 16:38 | DRG 418 ==
LOC: 3ANU → SUATTDRO 22:33
PROVIDERS: ADMIT Internal Medicine; ATTEND Internal Medicine

== ENCOUNTER 2019-08-14 13:37 | Inpatient (IN) ==
[2019-08-14] MEDS ORDERED: Ipratropium/Albuterol Neb 3 ML IH ONE (13:49)
[2019-08-14] MEDS ORDERED: methylPREDNISolone 125 MG/2 ML VIAL IVP ONE (13:49)
[2019-08-14] MEDS ORDERED: cefTRIAXone 1,000 MG in Water for inj. (sterile) 10 ML IVP ONE (13:49)
[2019-08-14 14:21] LABS: Basophils % 0.3 %; Eosinophils % 0.3 %; Hematocrit 36.2 % (35.3-44.9); Hemoglobin 11.4 g/dL (11.5-15.4); Immature Granulocytes % 0.4 % (0-4); Lymphocytes # 0.7 K/mcL (0.6-4.6); Lymphocytes % 6.6 %; Mean Corpuscular HGB Conc 31.5 g/dL (31.6-35.5); Mean Corpuscular Hemoglobin 26.5 pg (28.0-33.3); Mean Corpuscular Volume 84.2 fL (83.0-100.0); Monocytes # 0.5 K/mcL (0.0-1.3); Monocytes % 4.5 %; Platelet Count 234 K/mcL (140-400); Red Cell Distribution Width 15.2 % (11.5-14.5); Segmented Neutrophils % 87.9 %; White Blood Count 10.2 K/mcL (4.3-11.1)
[2019-08-14] MEDS ORDERED: Azithromycin 500 MG in 0.9 % Sodium Chloride 250 ML IVPB ONE (14:25)
[2019-08-14 14:30] LABS: VBG HCO3 29 mEq/L (21-27); VBG PCO2 49 mmHg (41-51); VBG PH 7.39 pH Units (7.32-7.42); VBG PO2 55 mmHg (25-50)
[2019-08-14 14:44] LABS: Alanine Aminotransferase 11 Units/L (7-52); Albumin 4.1 g/dL (3.5-5.7); Albumin/Globulin Ratio 1.4 (1.1-2.2); Alkaline Phosphatase 75 Units/L (34-104); Aspartate Amino Transferase 17 Units/L (13-39); BUN/Creatinine Ratio 26 (6-26); Bilirubin,Direct 0.2 mg/dL (0.0-0.2); Bilirubin,Indirect 0.4 mg/dL (0.0-1.0); Bilirubin,Total 0.6 mg/dL (0.3-1.0); Blood Urea Nitrogen 28 mg/dL (8-23); Calcium 9.3 mg/dL (8.6-10.3); Carbon Dioxide 27 mEq/L (23-29); Chloride 93 mEq/L (98-107); Globulin 2.9 g/dL (2.4-3.5); Glucose 188 mg/dL (70-105); Osmolality,Calculated 294 (280-300); Potassium 3.9 mEq/L (3.5-5.1); Sodium 137 mEq/L (136-145); Troponin I < 0.03 ng/mL (< 0.04); eGFR For African Americans 60 (> 60); eGFR For Non-African Americans 49 (> 60)
[2019-08-14] MEDS ORDERED: *HR* Metoprolol 5 MG/5 ML VIAL IVP PRN (15:21)
[2019-08-14] MEDS ORDERED: *HR* Metoprolol 5 MG/5 ML VIAL IVP ONE (15:21)
[2019-08-14] MEDS ORDERED: Ondansetron 4 MG/2 ML VIAL IVP PRN (15:30)
[2019-08-14] MEDS ORDERED: Naloxone 0.4 MG/ML INJ IVP PRN (15:30)
[2019-08-14] MEDS: Ipratropium/Albuterol Neb 3 ML IH SCH ×3 (18:01→23:40)
[2019-08-14] MEDS: *HR* Heparin 5,000 UNIT/ML VIAL SQ SCH ×2 (18:34→18:35)
[2019-08-14] MEDS: Furosemide 40 MG/4 ML VIAL IVP SCH ×2 (18:34→19:12)
[2019-08-14] MEDS: Budesonide/Formoterol 160/4.5 1 PUFF INH IH SCH (19:38)
[2019-08-14] MEDS ORDERED: *HR* Dextrose 50 % in Water (Syg) 50 ML SYRINGE IVP PRN (19:38)
[2019-08-14] MEDS ORDERED: D5% in Water 1,000 ML IVC PRN (19:38)
[2019-08-14] MEDS ORDERED: Dextrose Gel 15 GM/37.5 ML TUBE PO PRN ×2 (19:38)
[2019-08-14] MEDS: rOPINIRole 0.25 MG TABLET PO SCH (19:57)
[2019-08-14] MEDS: Insulin LISPRO 300 UNITS/3 ML VIAL SQ SCH (19:58)
[2019-08-14] MEDS: MethylPREDNISolone 40 MG/ML VIAL IVP SCH (23:57)
[2019-08-15] MEDS: Ipratropium/Albuterol Neb 3 ML IH SCH ×3 (04:01→11:24)
[2019-08-15 05:38] LABS: Basophils % 0.1 %; Hematocrit 34.8 % (35.3-44.9); Immature Granulocytes % 0.8 % (0-4); Lymphocytes # 0.5 K/mcL (0.6-4.6); Lymphocytes % 6.3 %; Mean Corpuscular HGB Conc 31.6 g/dL (31.6-35.5); Mean Corpuscular Hemoglobin 26.8 pg (28.0-33.3); Mean Corpuscular Volume 84.7 fL (83.0-100.0); Monocytes # 0.1 K/mcL (0.0-1.3); Monocytes % 0.6 %; Neutrophils # 7.3 K/mcL (1.6-8.9); Platelet Count 198 K/mcL (140-400); Red Blood Count 4.11 M/mcL (3.82-4.97); Red Cell Distribution Width 14.9 % (11.5-14.5); Segmented Neutrophils % 92.2 %; White Blood Count 7.9 K/mcL (4.3-11.1)
[2019-08-15] MEDS: *HR* Heparin 5,000 UNIT/ML VIAL SQ SCH ×2 (05:49→17:10)
[2019-08-15 06:12] LABS: BUN/Creatinine Ratio 26 (6-26); Blood Urea Nitrogen 27 mg/dL (8-23); Calcium 9.5 mg/dL (8.6-10.3); Carbon Dioxide 22 mEq/L (23-29); Chloride 97 mEq/L (98-107); Glucose 325 mg/dL (70-105); Magnesium 2.1 mg/dL (1.6-2.6); Osmolality,Calculated 296 (280-300); Phosphorous 3.9 mg/dL (2.7-4.5); Potassium 3.9 mEq/L (3.5-5.1); Sodium 134 mEq/L (136-145); eGFR For African Americans > 60 (> 60); eGFR For Non-African Americans 52 (> 60)
[2019-08-15] MEDS: Budesonide/Formoterol 160/4.5 1 PUFF INH IH SCH ×2 (07:27→21:55)
[2019-08-15] MEDS: Aspirin Enteric Coated 81 MG Tablet PO SCH (09:43)
[2019-08-15] MEDS: Cholecalciferol (D-3) 1,000 UNIT (25MCG) TABLET PO SCH (09:43)
[2019-08-15] MEDS: Spironolactone 25 MG TABLET PO SCH (09:43)
[2019-08-15] MEDS: Multivit/Ca/Min/Fe/FA 1 TAB TABLET PO SCH (09:43)
[2019-08-15] MEDS: DilTIAZem CD (24hr) 180 MG CAP.ER.24H PO SCH (09:43)
[2019-08-15] MEDS: Furosemide 40 MG/4 ML VIAL IVP SCH ×2 (09:43→20:33)
[2019-08-15] MEDS: Azithromycin 500 MG in 0.9 % Sodium Chloride 250 ML IVPB SCH (09:44)
[2019-08-15] MEDS: MethylPREDNISolone 40 MG/ML VIAL IVP SCH ×2 (09:44→20:40)
[2019-08-15] MEDS: cefTRIAXone 1,000 MG in Water for inj. (sterile) 10 ML IVP SCH (09:45)
[2019-08-15] MEDS: Insulin LISPRO 300 UNITS/3 ML VIAL SQ SCH ×4 (09:45→20:34)
[2019-08-15 10:01] LABS: Estimated Average Glucose 126 mg/dl
[2019-08-15] MEDS ORDERED: GuaiFENesin Liq 200 MG/10 ML UDC PO PRN (11:40)
[2019-08-15] MEDS ORDERED: Furosemide 20 MG/2 ML VIAL IVP ONE (14:00)
[2019-08-15] MEDS: Levalbuterol Neb 1.25 MG/3 ML IH SCH ×3 (14:12→21:55)
[2019-08-15] MEDS: Nystatin POWDER 30 GM BOTTLE TP SCH ×3 (15:43→20:35)
[2019-08-15] MEDS: rOPINIRole 0.25 MG TABLET PO SCH (20:33)
[2019-08-16] MEDS: Levalbuterol Neb 1.25 MG/3 ML IH SCH ×4 (03:26→21:36)
[2019-08-16 05:29] LABS: Basophils % 0.1 %; Hematocrit 33.8 % (35.3-44.9); Hemoglobin 10.5 g/dL (11.5-15.4); Immature Granulocytes % 0.8 % (0-4); Lymphocytes # 0.7 K/mcL (0.6-4.6); Lymphocytes % 4.2 %; Mean Corpuscular HGB Conc 31.1 g/dL (31.6-35.5); Mean Corpuscular Hemoglobin 26.3 pg (28.0-33.3); Mean Corpuscular Volume 84.5 fL (83.0-100.0); Mean Platelet Volume 10.2 fL (9.4-12.4); Monocytes # 0.3 K/mcL (0.0-1.3); Monocytes % 1.7 %; Platelet Count 227 K/mcL (140-400); Red Cell Distribution Width 14.8 % (11.5-14.5); Segmented Neutrophils % 93.2 %
[2019-08-16 05:34] LABS: Neutrophils # 15.8 K/mcL (1.6-8.9)
[2019-08-16 05:51] LABS: Calcium 9.3 mg/dL (8.6-10.3); Magnesium 2.1 mg/dL (1.6-2.6); Phosphorous 4.8 mg/dL (2.7-4.5); Potassium 4.3 mEq/L (3.5-5.1)
[2019-08-16] MEDS: *HR* Heparin 5,000 UNIT/ML VIAL SQ SCH ×2 (05:59→17:28)
[2019-08-16] MEDS: Multivit/Ca/Min/Fe/FA 1 TAB TABLET PO SCH (09:59)
[2019-08-16] MEDS: Cholecalciferol (D-3) 1,000 UNIT (25MCG) TABLET PO SCH (09:59)
[2019-08-16] MEDS: Spironolactone 25 MG TABLET PO SCH (09:59)
[2019-08-16] MEDS: Budesonide/Formoterol 160/4.5 1 PUFF INH IH SCH ×2 (09:59→21:36)
[2019-08-16] MEDS: Aspirin Enteric Coated 81 MG Tablet PO SCH (09:59)
[2019-08-16] MEDS: MethylPREDNISolone 40 MG/ML VIAL IVP SCH ×2 (10:00→21:59)
[2019-08-16] MEDS: Furosemide 40 MG/4 ML VIAL IVP SCH ×2 (10:03→22:00)
[2019-08-16] MEDS: Azithromycin 500 MG in 0.9 % Sodium Chloride 250 ML IVPB SCH (10:05)
[2019-08-16] MEDS: cefTRIAXone 1,000 MG in Water for inj. (sterile) 10 ML IVP SCH (10:10)
[2019-08-16] MEDS ORDERED: CefTRIAXone 1,000 MG VIAL ONE (10:13)
[2019-08-16] MEDS: Insulin LISPRO 300 UNITS/3 ML VIAL SQ SCH ×4 (10:17→22:00)
[2019-08-16] MEDS: Nystatin POWDER 30 GM BOTTLE TP SCH ×3 (10:25→21:58)
[2019-08-16] MEDS: DilTIAZem CD (24hr) 180 MG CAP.ER.24H PO SCH ×2 (10:25→11:36)
[2019-08-16] MEDS: rOPINIRole 0.25 MG TABLET PO SCH (21:59)
[2019-08-17] MEDS: Levalbuterol Neb 1.25 MG/3 ML IH SCH ×4 (03:04→21:59)
[2019-08-17 05:42] LABS: Basophils % 0.1 %; Hemoglobin 10.2 g/dL (11.5-15.4); Immature Granulocytes % 1.3 % (0-4); Lymphocytes # 0.5 K/mcL (0.6-4.6); Lymphocytes % 3.8 %; Mean Corpuscular HGB Conc 31.9 g/dL (31.6-35.5); Mean Corpuscular Hemoglobin 26.8 pg (28.0-33.3); Mean Corpuscular Volume 84.2 fL (83.0-100.0); Mean Platelet Volume 9.6 fL (9.4-12.4); Monocytes # 0.2 K/mcL (0.0-1.3); Monocytes % 1.4 %; Platelet Count 212 K/mcL (140-400); Red Cell Distribution Width 14.9 % (11.5-14.5); Segmented Neutrophils % 93.4 %; White Blood Count 11.8 K/mcL (4.3-11.1)
[2019-08-17] MEDS: *HR* Heparin 5,000 UNIT/ML VIAL SQ SCH ×2 (05:55→17:05)
[2019-08-17 06:00] LABS: Calcium 9.4 mg/dL (8.6-10.3); Magnesium 2.3 mg/dL (1.6-2.6); Phosphorous 3.8 mg/dL (2.7-4.5); Potassium 4.5 mEq/L (3.5-5.1)
[2019-08-17] MEDS: Spironolactone 25 MG TABLET PO SCH (08:17)
[2019-08-17] MEDS: Multivit/Ca/Min/Fe/FA 1 TAB TABLET PO SCH (08:17)
[2019-08-17] MEDS: predniSONE 20 MG TABLET PO SCH (08:17)
[2019-08-17] MEDS: DilTIAZem CD (24hr) 180 MG CAP.ER.24H PO SCH (08:17)
[2019-08-17] MEDS: Cholecalciferol (D-3) 1,000 UNIT (25MCG) TABLET PO SCH (08:17)
[2019-08-17] MEDS: Aspirin Enteric Coated 81 MG Tablet PO SCH (08:17)
[2019-08-17] MEDS: cefTRIAXone 1,000 MG in Water for inj. (sterile) 10 ML IVP SCH (08:18)
[2019-08-17] MEDS: Azithromycin 500 MG in 0.9 % Sodium Chloride 250 ML IVPB SCH (08:18)
[2019-08-17] MEDS: Furosemide 40 MG/4 ML VIAL IVP SCH (08:22)
[2019-08-17] MEDS: Insulin LISPRO 300 UNITS/3 ML VIAL SQ SCH ×4 (08:27→20:15)
[2019-08-17] MEDS: Nystatin POWDER 30 GM BOTTLE TP SCH ×3 (08:41→20:09)
[2019-08-17] MEDS: Budesonide/Formoterol 160/4.5 1 PUFF INH IH SCH ×2 (09:31→21:58)
[2019-08-17] MEDS: rOPINIRole 0.25 MG TABLET PO SCH (20:09)
[2019-08-18 02:33] LABS: Basophils % 0.2 %; Hematocrit 31.1 % (35.3-44.9); Hemoglobin 9.9 g/dL (11.5-15.4); Immature Granulocytes % 1.6 % (0-4); Lymphocytes # 0.7 K/mcL (0.6-4.6); Mean Corpuscular HGB Conc 31.8 g/dL (31.6-35.5); Mean Corpuscular Hemoglobin 26.8 pg (28.0-33.3); Mean Corpuscular Volume 84.1 fL (83.0-100.0); Mean Platelet Volume 9.9 fL (9.4-12.4); Monocytes # 0.5 K/mcL (0.0-1.3); Monocytes % 5.3 %; Neutrophils # 8.7 K/mcL (1.6-8.9); Platelet Count 198 K/mcL (140-400); Red Cell Distribution Width 14.7 % (11.5-14.5); Segmented Neutrophils % 85.9 %; White Blood Count 10.1 K/mcL (4.3-11.1)
[2019-08-18 02:54] LABS: Magnesium 2.5 mg/dL (1.6-2.6); Phosphorous 3.5 mg/dL (2.7-4.5); Potassium 4.4 mEq/L (3.5-5.1)
[2019-08-18] MEDS: Levalbuterol Neb 1.25 MG/3 ML IH SCH ×2 (03:19→12:01)
[2019-08-18] MEDS: *HR* Heparin 5,000 UNIT/ML VIAL SQ SCH (06:08)
[2019-08-18] MEDS ORDERED: Furosemide 40 MG TABLET PO SCH (08:00)
[2019-08-18] MEDS: Azithromycin 500 MG in 0.9 % Sodium Chloride 250 ML IVPB SCH (08:31)
[2019-08-18] MEDS: Multivit/Ca/Min/Fe/FA 1 TAB TABLET PO SCH (08:32)
[2019-08-18] MEDS: Cholecalciferol (D-3) 1,000 UNIT (25MCG) TABLET PO SCH (08:32)
[2019-08-18] MEDS: predniSONE 20 MG TABLET PO SCH (08:32)
[2019-08-18] MEDS: Spironolactone 25 MG TABLET PO SCH (08:32)
[2019-08-18] MEDS: Aspirin Enteric Coated 81 MG Tablet PO SCH (08:33)
[2019-08-18] MEDS: DilTIAZem CD (24hr) 180 MG CAP.ER.24H PO SCH (08:33)
[2019-08-18] MEDS: Insulin LISPRO 300 UNITS/3 ML VIAL SQ SCH (08:36)
[2019-08-18] MEDS: cefTRIAXone 1,000 MG in Water for inj. (sterile) 10 ML IVP SCH (08:37)
[2019-08-18] MEDS: Nystatin POWDER 30 GM BOTTLE TP SCH (09:45)
[2019-08-18 10:59] VITALS: BP 117/70
[2019-08-18] MEDS: Budesonide/Formoterol 160/4.5 1 PUFF INH IH SCH (12:01)
== END 2019-08-18 12:09 ==
LOC: 3BNU 13:37 → EMEROOARM 13:37 → SUATTDRO 16:41 → 3BNU 18:10
PROVIDERS: ADMIT Family Medicine; ATTEND Internal Medicine

== ENCOUNTER 2020-04-10 11:08 | Inpatient (IN) ==
[2020-04-10 12:13] LABS: Basophils # 0.1 K/mcL (0.0-0.2); Basophils % 0.7 %; Eosinophils # 0.1 K/mcL (0.0-0.6); Eosinophils % 1.1 %; Hemoglobin 13.3 g/dL (11.5-15.4); Immature Granulocytes % 1.5 % (0-4); Lymphocytes # 1.5 K/mcL (0.6-4.6); Lymphocytes % 16.2 %; Mean Corpuscular HGB Conc 32.4 g/dL (31.6-35.5); Mean Corpuscular Hemoglobin 28.9 pg (28.0-33.3); Mean Corpuscular Volume 88.9 fL (83.0-100.0); Mean Platelet Volume 9.4 fL (9.4-12.4); Monocytes # 0.6 K/mcL (0.0-1.3); Monocytes % 6.8 %; Neutrophils # 6.9 K/mcL (1.6-8.9); Platelet Count 191 K/mcL (140-400); Red Blood Count 4.61 M/mcL (3.82-4.97); Segmented Neutrophils % 73.7 %; White Blood Count 9.4 K/mcL (4.3-11.1)
[2020-04-10 12:17] LABS: Prothrombin Time 11.8 Seconds (9.4-12.1)
[2020-04-10 12:31] LABS: Activated Partial Thrombo Time 20.3 Seconds (26.0-36.0)
[2020-04-10 12:44] LABS: BUN/Creatinine Ratio 30 (6-26); Blood Urea Nitrogen 33 mg/dL (8-23); Calcium 9.3 mg/dL (8.6-10.3); Carbon Dioxide 32 mEq/L (23-29); Chloride 99 mEq/L (98-107); Glucose 88 mg/dL (70-105); Osmolality,Calculated 299 (280-300); Potassium 3.6 mEq/L (3.5-5.1); Sodium 141 mEq/L (136-145); Troponin I < 0.03 ng/mL (< 0.04); eGFR For African Americans 56 (> 60); eGFR For Non-African Americans 47 (> 60)
[2020-04-10] MEDS ORDERED: Naloxone 0.4 MG/ML INJ IVP PRN (13:37)
[2020-04-10] MEDS ORDERED: Perflutren Lipid Microsphere 1.3 ML in 0.9 % Sodium Chloride 8.7 ML IVP PRN (13:46)
[2020-04-10] MEDS ORDERED: Nitroglycerin 0.4 MG TAB.SUBL SL PRN (16:10)
[2020-04-10] MEDS ORDERED: Aspirin 325 MG TABLET PO STA (16:10)
[2020-04-10] MEDS: Nystatin POWDER 30 GM BOTTLE TP SCH (21:36)
[2020-04-10] MEDS ORDERED: polyethylene glycoL 3350 17 GM POWD.PACK PO PRN (23:19)
[2020-04-11] MEDS: Ipratropium/Albuterol Neb 3 ML IH SCH ×4 (04:52→21:38)
[2020-04-11 05:34] LABS: BUN/Creatinine Ratio 27 (6-26); Blood Urea Nitrogen 28 mg/dL (8-23); Calcium 8.5 mg/dL (8.6-10.3); Carbon Dioxide 30 mEq/L (23-29); Chloride 102 mEq/L (98-107); Glucose 116 mg/dL (70-105); Osmolality,Calculated 296 (280-300); Potassium 3.8 mEq/L (3.5-5.1); Sodium 140 mEq/L (136-145); eGFR For African Americans > 60 (> 60); eGFR For Non-African Americans 51 (> 60)
[2020-04-11] MEDS ORDERED: Regadenoson 0.4 MG/5 ML SYRINGE IVP ONE (06:04)
[2020-04-11] MEDS: *HR* Heparin 5,000 UNIT/ML VIAL SQ SCH ×2 (06:13→17:30)
[2020-04-11] MEDS: DilTIAZem CD (24hr) 300 MG CAP.ER.24H PO SCH (06:13)
[2020-04-11] MEDS ORDERED: Nystatin POWDER 30 GM BOTTLE TP SCH (09:00)
[2020-04-11] MEDS ORDERED: DilTIAZem CD (24hr) 300 MG CAP.ER.24H PO SCH (09:00)
[2020-04-11] MEDS ORDERED: Spironolactone 25 MG TABLET PO SCH (09:00)
[2020-04-11] MEDS: Budesonide/Formoterol 80/4.5 1 PUFF INH IH SCH ×2 (10:03→21:38)
[2020-04-11] MEDS: Tiotropium 18 MCG inhalation IH SCH (10:03)
[2020-04-11] MEDS: Multivit/Ca/Min/Fe/FA 1 TAB TABLET PO SCH (10:54)
[2020-04-11] MEDS: Aspirin Enteric Coated 81 MG Tablet PO SCH (10:54)
[2020-04-11] MEDS: Furosemide 40 MG TABLET PO SCH ×2 (10:54→21:56)
[2020-04-11] MEDS: predniSONE 10 MG TABLET PO SCH (10:55)
[2020-04-11] MEDS: Nystatin POWDER 30 GM BOTTLE TP SCH ×3 (10:56→21:56)
[2020-04-11] MEDS ORDERED: Acetaminophen 325 MG TABLET PO PRN (13:23)
[2020-04-11] MEDS: cephALEXin 500 MG CAPSULE PO SCH ×3 (13:31→21:56)
[2020-04-11] MEDS: rOPINIRole 0.25 MG TABLET PO SCH (21:55)
[2020-04-12] MEDS: Ipratropium/Albuterol Neb 3 ML IH SCH ×4 (03:23→22:08)
[2020-04-12] MEDS: *HR* Heparin 5,000 UNIT/ML VIAL SQ SCH ×2 (05:25→17:06)
[2020-04-12 06:25] LABS: Calcium 8.5 mg/dL (8.6-10.3); Magnesium 2.1 mg/dL (1.6-2.6); Potassium 4.4 mEq/L (3.5-5.1)
[2020-04-12] MEDS: Multivit/Ca/Min/Fe/FA 1 TAB TABLET PO SCH (09:03)
[2020-04-12] MEDS: cephALEXin 500 MG CAPSULE PO SCH ×4 (09:03→20:37)
[2020-04-12] MEDS: DilTIAZem CD (24hr) 300 MG CAP.ER.24H PO SCH (09:04)
[2020-04-12] MEDS: Aspirin Enteric Coated 81 MG Tablet PO SCH (09:04)
[2020-04-12] MEDS: predniSONE 10 MG TABLET PO SCH (09:05)
[2020-04-12] MEDS: Nystatin POWDER 30 GM BOTTLE TP SCH ×3 (09:05→20:39)
[2020-04-12] MEDS: Furosemide 40 MG TABLET PO SCH ×2 (09:05→20:31)
[2020-04-12] MEDS: Tiotropium 18 MCG inhalation IH SCH (10:05)
[2020-04-12] MEDS: Budesonide/Formoterol 80/4.5 1 PUFF INH IH SCH ×2 (10:06→22:11)
[2020-04-12 13:24] LABS: Adenovirus Not Detected (Not Detect); Coronavirus 229E Not Detected (Not Detect); Coronavirus HKU1 Not Detected (Not Detect); Coronavirus NL63 Not Detected (Not Detect); Coronavirus OC43 Not Detected (Not Detect)
[2020-04-12 13:25] LABS: Bordetella Pertussis Not Detected (Not Detect); Chlamydophila pneumoniae Not Detected (Not Detect); Human Metapneumovirus Not Detected (Not Detect); Human Rhinovirus/Enterovirus Not Detected (Not Detect); Influenza A Subtype 2009 H1 Not Detected (Not Detect); Influenza B Not Detected (Not Detect); Mycoplasma pneumoniae Not Detected (Not Detect); Parainfluenza Virus 1 Not Detected (Not Detect); Parainfluenza Virus 2 Not Detected (Not Detect); Parainfluenza Virus 3 Not Detected (Not Detect); Parainfluenza Virus 4 Not Detected (Not Detect); Respiratory Syncytial Virus Not Detected (Not Detect); SARS-CoV-2 Not Detected (Not Detect)
[2020-04-12] MEDS: rOPINIRole 0.25 MG TABLET PO SCH (20:37)
[2020-04-13] MEDS: Ipratropium/Albuterol Neb 3 ML IH SCH ×4 (03:19→22:21)
[2020-04-13] MEDS: *HR* Heparin 5,000 UNIT/ML VIAL SQ SCH ×2 (05:16→17:26)
[2020-04-13] MEDS: Aspirin Enteric Coated 81 MG Tablet PO SCH (08:43)
[2020-04-13] MEDS: Multivit/Ca/Min/Fe/FA 1 TAB TABLET PO SCH (08:43)
[2020-04-13] MEDS: DilTIAZem CD (24hr) 300 MG CAP.ER.24H PO SCH (08:43)
[2020-04-13] MEDS: Furosemide 40 MG TABLET PO SCH ×2 (08:43→21:22)
[2020-04-13] MEDS: predniSONE 10 MG TABLET PO SCH (08:43)
[2020-04-13] MEDS: Nystatin POWDER 30 GM BOTTLE TP SCH ×3 (08:44→21:23)
[2020-04-13] MEDS: cephALEXin 500 MG CAPSULE PO SCH ×4 (08:44→20:46)
[2020-04-13] MEDS: Budesonide/Formoterol 80/4.5 1 PUFF INH IH SCH ×2 (11:36→22:21)
[2020-04-13] MEDS: Tiotropium 18 MCG inhalation IH SCH (11:37)
[2020-04-13] MEDS: rOPINIRole 0.25 MG TABLET PO SCH (21:22)
[2020-04-14] MEDS: Ipratropium/Albuterol Neb 3 ML IH SCH ×4 (03:51→22:12)
[2020-04-14] MEDS: *HR* Heparin 5,000 UNIT/ML VIAL SQ SCH ×2 (06:15→17:36)
[2020-04-14] MEDS: DilTIAZem CD (24hr) 300 MG CAP.ER.24H PO SCH (08:39)
[2020-04-14] MEDS: Multivit/Ca/Min/Fe/FA 1 TAB TABLET PO SCH (08:39)
[2020-04-14] MEDS: Aspirin Enteric Coated 81 MG Tablet PO SCH (08:39)
[2020-04-14] MEDS: Furosemide 40 MG TABLET PO SCH ×2 (08:40→20:06)
[2020-04-14] MEDS: Nystatin POWDER 30 GM BOTTLE TP SCH ×3 (08:40→20:07)
[2020-04-14] MEDS: predniSONE 10 MG TABLET PO SCH (08:40)
[2020-04-14] MEDS: cephALEXin 500 MG CAPSULE PO SCH ×4 (08:40→20:06)
[2020-04-14 10:09] LABS: Magnesium 2.2 mg/dL (1.6-2.6)
[2020-04-14] MEDS: Tiotropium 18 MCG inhalation IH SCH (10:54)
[2020-04-14] MEDS: Budesonide/Formoterol 80/4.5 1 PUFF INH IH SCH ×2 (11:33→22:14)
[2020-04-14] MEDS: rOPINIRole 0.25 MG TABLET PO SCH (20:06)
[2020-04-15] MEDS: Ipratropium/Albuterol Neb 3 ML IH SCH ×4 (04:03→21:07)
[2020-04-15] MEDS: *HR* Heparin 5,000 UNIT/ML VIAL SQ SCH ×2 (05:41→16:33)
[2020-04-15] MEDS: DilTIAZem CD (24hr) 300 MG CAP.ER.24H PO SCH (08:21)
[2020-04-15] MEDS: cephALEXin 500 MG CAPSULE PO SCH ×4 (08:21→20:03)
[2020-04-15] MEDS: Aspirin Enteric Coated 81 MG Tablet PO SCH (08:21)
[2020-04-15] MEDS: predniSONE 10 MG TABLET PO SCH (08:22)
[2020-04-15] MEDS: Nystatin POWDER 30 GM BOTTLE TP SCH ×3 (08:22→20:04)
[2020-04-15] MEDS: Multivit/Ca/Min/Fe/FA 1 TAB TABLET PO SCH (08:22)
[2020-04-15] MEDS: Furosemide 40 MG TABLET PO SCH ×2 (08:22→20:03)
[2020-04-15] MEDS: Tiotropium 18 MCG inhalation IH SCH (10:49)
[2020-04-15] MEDS: Budesonide/Formoterol 80/4.5 1 PUFF INH IH SCH ×2 (10:50→21:07)
[2020-04-15] MEDS: rOPINIRole 0.25 MG TABLET PO SCH (20:03)
[2020-04-16 02:38] LABS: Magnesium 2.2 mg/dL (1.6-2.6); Potassium 4.1 mEq/L (3.5-5.1)
[2020-04-16] MEDS: Ipratropium/Albuterol Neb 3 ML IH SCH ×2 (03:23→12:09)
[2020-04-16] MEDS: *HR* Heparin 5,000 UNIT/ML VIAL SQ SCH (05:53)
[2020-04-16] MEDS: DilTIAZem CD (24hr) 300 MG CAP.ER.24H PO SCH (08:19)
[2020-04-16] MEDS: Multivit/Ca/Min/Fe/FA 1 TAB TABLET PO SCH (08:20)
[2020-04-16] MEDS: Furosemide 40 MG TABLET PO SCH (08:20)
[2020-04-16] MEDS: predniSONE 10 MG TABLET PO SCH (08:20)
[2020-04-16] MEDS: cephALEXin 500 MG CAPSULE PO SCH (08:20)
[2020-04-16] MEDS: Aspirin Enteric Coated 81 MG Tablet PO SCH (08:20)
[2020-04-16] MEDS: Nystatin POWDER 30 GM BOTTLE TP SCH (08:20)
[2020-04-16 10:51] VITALS: BP 115/72
[2020-04-16] MEDS: Tiotropium 18 MCG inhalation IH SCH (12:08)
[2020-04-16] MEDS: Budesonide/Formoterol 80/4.5 1 PUFF INH IH SCH (12:09)
== END 2020-04-16 12:20 | disposition hospice, home (50) | DRG 291 ==
LOC: EMEROOARM 11:08 → 3BNU 11:08 → SUATTDRO 13:37 → 3BNU 17:12
PROVIDERS: ADMIT Family Medicine; ATTEND Internal Medicine

== ENCOUNTER 2021-04-30 06:44 | Inpatient (IN) ==
[2021-04-30] MEDS ORDERED: Isovue-370 500 ML BOTTLE IVP ONE (07:09)
[2021-04-30] MEDS ORDERED: Tdap (Boostrix) Vaccine 0.5 ML SYRINGE IM ONE ×2 (07:15→08:15)
[2021-04-30 08:20] LABS: Bacteria,Urine Many per hpf (None-Few); Bilirubin,Urine Negative (Negative); Blood,Urine Small (Negative); Clarity,Urine Ex.Turbid (Clear); Color,Urine Orange (Yellow); Glucose,Urine (UA) Normal (Normal); Ketones,Urine Negative (Negative); Leukocyte Esterase,Urine Large (Negative); Nitrite,Urine Positive (Negative); Protein,Urine >=300 mg/dL (Neg-Trace); RBC,Urine 15-30 per hpf (0-3); Specific Gravity,Urine 1.012 (1.010-1.025); Urobilinogen,Urine Normal (Normal); WBC,Urine 50-100 per hpf (0-3)
[2021-04-30 08:29] LABS: Basophils # 0.1 K/mcL (0.0-0.2); Basophils % 0.7 %; Eosinophils # 0.1 K/mcL (0.0-0.6); Eosinophils % 0.3 %; Hematocrit 41.2 % (35.3-44.9); Hemoglobin 13.6 g/dL (11.5-15.4); Immature Granulocytes % 4.5 % (0-4); Lymphocytes # 1.3 K/mcL (0.6-4.6); Lymphocytes % 7.8 %; Mean Corpuscular Hemoglobin 28.3 pg (28.0-33.3); Mean Corpuscular Volume 85.7 fL (83.0-100.0); Mean Platelet Volume 9.3 fL (9.4-12.4); Monocytes # 0.5 K/mcL (0.0-1.3); Monocytes % 3.2 %; Neutrophils # 13.7 K/mcL (1.6-8.9); Platelet Count 266 K/mcL (140-400); Red Blood Count 4.81 M/mcL (3.82-4.97); Red Cell Distribution Width 14.8 % (11.5-14.5); Segmented Neutrophils % 83.5 %; White Blood Count 16.4 K/mcL (4.3-11.1)
[2021-04-30 08:37] LABS: INR 0.9; Prothrombin Time 10.5 Seconds (9.4-12.1)
[2021-04-30] MEDS ORDERED: Bacitracin OINT PKT TP ONE (13:09)
[2021-04-30] MEDS ORDERED: Naloxone 0.4 MG/ML INJ IVP PRN (13:58)
[2021-04-30] MEDS ORDERED: Vancomycin 1,750 MG/517.5 ML IV.SOLN IVPB ONE (14:00)
[2021-04-30] MEDS ORDERED: cefTRIAXone 2,000 MG in Water for inj. (sterile) 20 ML IVP SCH (16:00)
[2021-04-30] MEDS ORDERED: Albumin 25% 25gram/100mL 25 GM/100 ML IV.SOLN IVPB ONE (20:54)
[2021-04-30] MEDS: Nystatin POWDER 30 GM BOTTLE TP SCH (23:40)
[2021-05-01] MEDS ORDERED: Acetaminophen 325 MG TABLET PO PRN (04:59)
[2021-05-01] MEDS ORDERED: Ketorolac 30 MG/ML VIAL IVP PRN (05:00)
[2021-05-01 07:50] LABS: Hemoglobin 12.2 g/dL (11.5-15.4); Immature Platelets 3.4 % (1.1-6.1)
[2021-05-01 07:53] LABS: Basophils # 0.1 K/mcL (0.0-0.2); Basophils % 0.5 %; Hematocrit 38.4 % (35.3-44.9); Immature Granulocytes % 2.5 % (0-4); Mean Corpuscular HGB Conc 31.8 g/dL (31.6-35.5); Mean Corpuscular Volume 88.1 fL (83.0-100.0); Mean Platelet Volume 9.4 fL (9.4-12.4); Monocytes # 0.6 K/mcL (0.0-1.3); Monocytes % 2.9 %; Platelet Count 193 K/mcL (140-400); Red Blood Count 4.36 M/mcL (3.82-4.97); Segmented Neutrophils % 90.1 %; White Blood Count 21.1 K/mcL (4.3-11.1)
[2021-05-01] MEDS: Nystatin POWDER 30 GM BOTTLE TP SCH ×3 (07:55→21:58)
[2021-05-01 08:03] LABS: Lymphocytes # 0.8 K/mcL (0.6-4.6)
[2021-05-01 08:50] LABS: Calcium 8.5 mg/dL (8.6-10.3); Potassium 6.2 mEq/L (3.5-5.1)
[2021-05-01] MEDS ORDERED: Ipratropium/Albuterol Neb 3 ML IH PRN (10:16)
[2021-05-01] MEDS ORDERED: Vancomycin 1,750 MG in 0.9 % Sodium Chloride 250 ML IVPB SCH (12:00)
[2021-05-01] MEDS ORDERED: Vancomycin 1,750 MG/517.5 ML IV.SOLN IVPB SCH (14:00)
[2021-05-01] MEDS: 0.9 % Sodium Chloride 1,000 ML IVC SCH ×2 (16:31→23:49)
[2021-05-01] MEDS: Cefepime HCl 1,000 MG in Water for inj. (sterile) 10 ML IVP SCH (17:30)
[2021-05-01] MEDS: *HR* Heparin 5,000 UNIT/ML VIAL SQ SCH (17:37)
[2021-05-01] MEDS ORDERED: Nystatin POWDER 30 GM BOTTLE TP SCH (21:00)
[2021-05-02] MEDS: Morphine Sulfate Oral CONC 10 MG/0.5 ML ORAL.SYG SL PRN ×2 (03:08→10:17)
[2021-05-02 03:14] LABS: Hematocrit 31.6 % (35.3-44.9); Mean Corpuscular HGB Conc 32.6 g/dL (31.6-35.5); Mean Corpuscular Hemoglobin 28.6 pg (28.0-33.3); Mean Corpuscular Volume 87.8 fL (83.0-100.0); Mean Platelet Volume 9.2 fL (9.4-12.4); Platelet Count 161 K/mcL (140-400); Red Cell Distribution Width 14.9 % (11.5-14.5); White Blood Count 14.4 K/mcL (4.3-11.1)
[2021-05-02 03:17] LABS: Hemoglobin 10.3 g/dL (11.5-15.4)
[2021-05-02 03:32] LABS: Calcium 7.9 mg/dL (8.6-10.3); Potassium 4.5 mEq/L (3.5-5.1)
[2021-05-02] MEDS: Cefepime HCl 1,000 MG in Water for inj. (sterile) 10 ML IVP SCH ×2 (05:54→17:01)
[2021-05-02] MEDS: *HR* Heparin 5,000 UNIT/ML VIAL SQ SCH ×2 (05:58→17:02)
[2021-05-02] MEDS: Nystatin POWDER 30 GM BOTTLE TP SCH ×4 (08:03→20:38)
[2021-05-02] MEDS ORDERED: Loratadine 10 MG TABLET PO PRN (11:50)
[2021-05-02] MEDS ORDERED: MORPHINE 100 MG/5 ML PO PRN (11:50)
[2021-05-02] MEDS: DilTIAZem CD (24hr) 300 MG CAP.ER.24H PO SCH (12:43)
[2021-05-02] MEDS: 0.9 % Sodium Chloride 1,000 ML IVC SCH (12:44)
[2021-05-02] MEDS: Furosemide 40 MG TABLET PO SCH (17:15)
[2021-05-03] MEDS: Cefepime HCl 1,000 MG in Water for inj. (sterile) 10 ML IVP SCH ×2 (06:04→16:42)
[2021-05-03] MEDS: *HR* Heparin 5,000 UNIT/ML VIAL SQ SCH ×2 (06:05→16:42)
[2021-05-03] MEDS: Morphine Sulfate Oral CONC 10 MG/0.5 ML ORAL.SYG SL PRN (08:29)
[2021-05-03] MEDS: Furosemide 40 MG TABLET PO SCH ×2 (08:30→16:45)
[2021-05-03] MEDS: DilTIAZem CD (24hr) 300 MG CAP.ER.24H PO SCH (08:30)
[2021-05-03] MEDS: Nystatin POWDER 30 GM BOTTLE TP SCH ×3 (08:30→22:32)
[2021-05-03] MEDS ORDERED: Famotidine 20 MG TABLET PO SCH ×2 (09:00)
[2021-05-03] MEDS ORDERED: Spironolactone 25 MG TABLET PO SCH (09:00)
[2021-05-03 15:21] LABS: Influenza A PCR Negative (Negative); Influenza B PCR Negative (Negative); Resp. Syncytial Virus PCR Negative (Negative); SARS-CoV-2 by PCR (In House) Negative (Negative)
[2021-05-03] MEDS ORDERED: Sennosides/Docusate Sodium TABLET PO ONE (17:34)
[2021-05-04 03:20] VITALS: BP 104/63; PULSE 86; TEMP 97.5; O2SAT 100
== END 2021-05-04 05:50 | DRG 872 ==
LOC: 2ANU 06:44 → EMEROOARM 06:44 → SUATTDRO 14:36 → 2ANU 18:09
PROVIDERS: ADMIT Pharmacist; ATTEND Family Medicine